=== PATIENT | male | born 1995 | race Caucasian/White ===

== ENCOUNTER 2020-04-15 13:04 | Outpatient (REF) | payer MEDICAID, SELFPAY | END 2020-04-15 13:05 | disposition home or self-care (01) | LOC: HO.LAB 13:04 | PROVIDERS: Visit Provider Internal Medicine | DX: Z20.828 Contact with and (suspected) exposure to other viral communicable diseases (principal) | CPT/HCPCS: C9803; U0003 ==

== ENCOUNTER 2020-07-21 06:50 | Emergency (ER) | payer MEDICAID, SELFPAY ==
--- NOTE | ~2020-07-21 | CT_ITS ---
EXAMINATION: CT ABDOMEN AND PELVIS WITHOUT CONTRAST CLINICAL INFORMATION: Flank pain, hematuria. COMPARISON: 11/17/2015 CT scan of the abdomen and pelvis. TECHNIQUE: Multidetector volumetric imaging was performed from the superior aspect of the liver through the pubic symphysis. Sagittal and coronal reformatted images were obtained on the technologist's workstation. Lack of intravenous and oral contrast limits visceral evaluation. This CT examination was performed using dose optimization techniques as appropriate, variously including the following: *Automated exposure control *Adjustment of mA and/or kV according to patient size (this includes techniques or standardized protocols for targeted exams where dose is matched to indication/reason for exam; i.e. extremities or head) *Use of iterative reconstruction technique DLP: 286.25 mGy-cm FINDINGS: LUNG BASES: The visualized lung bases are unremarkable. LIVER, GALLBLADDER, AND BILIARY TREE: Unremarkable. PANCREAS: Unremarkable. SPLEEN: Unremarkable. ADRENAL GLANDS: Unremarkable. KIDNEYS AND URETERS: The kidneys are normal in size, shape, and attenuation. No hydronephrosis, hydroureter, or calculi seen. No perinephric stranding. BLADDER: Unremarkable. GASTROINTESTINAL TRACT: The small and large bowel are unremarkable. The appendix is unremarkable. The previously seen calcification associated with the appendix is not visualized. ABDOMINAL WALL: No significant hernia is appreciated. LYMPH NODES: Normal. VASCULAR: Unremarkable. PELVIC VISCERA: Unremarkable. OSSEOUS STRUCTURES: Unremarkable. CT/CT abdomen pelvis wo con IMPRESSION: Unremarkable CT scan of the abdomen and pelvis. A causative abnormality for the patient's flank pain/hematuria was not identified.
[2020-07-21 08:20] VITALS: BP 112/75; PULSE 67; RESP 16; TEMP 36.7; O2SAT 99
--- NOTE | 2020-07-21 08:39 | ED_ITS ---
HPI - Abdominal Pain General Chief Complaint: Urogenital-Male Stated Complaint: flank pain/blood in urine Time Seen by Provider: 07/21/20 08:07 Source: patient Mode of arrival: ambulatory Limitations: no limitations History of Present Illness HPI narrative: 25 y/o male with history of prior constipation, bloody BM's and ex-lap as a teenager at [facility] who presents to the ED with 2-3 days of LLQ pain radiating up to his left flank as well as new onset bloody urine today. He denies fever, chills, N/V/D. Had normal BM yesterday. No history of kidney stones. No sick contacts. Not sexually active. No penile discharge, no testicular pain. MD elicited complaint: abdominal pain and flank pain Onset (ago): day(s) (2-3 ) Pain Consistency: constant Location: LLQ Severity: severe Quality: stabbing Radiation: L flank Migration to: L flank Exacerbating factors: movement Relieving factors: nothing Associated symptoms: hematuria Related Data Previous Rx's Medication Instructions Recorded levofloxacin 750 mg PO DAILY 7 Days #7 tab 07/21/20 Allergies Allergy/AdvReac Type Severity Reaction Status Date / Time minocycline [MINOCYCLINE] Allergy Unknown URINATE Verified 07/21/20 08:42 BLOOD Review of Systems Review of Systems Constitutional: No Fever, No Chills ENT/Mouth: No sore throat, No Rhinorrhea, No Swallowing Difficulty Cardiovascular: No Chest Pain, No SOB, No Orthopnea, No Edema Respiratory: No Cough, No Sputum, No Wheezing, No dyspnea Gastrointestinal: No Nausea, No Vomiting, No Diarrhea, + abdominal Pain, No Hematochezia, No Melena Genitourinary: + Dysuria, No Urinary Frequency, + Hematuria Musculoskeletal: No joint pain, No Myalgias Skin: No Skin Lesions, No rash Neuro: No Weakness, No Numbness, No Dizziness, No Headache Psych: No Anxiety/Panic, No Depression Heme/Lymph: No Bruising, No Lymphadenopathy Endocrine: No Polyuria, No Polydipsia Physical Exam Vital Signs: Vital Signs: Last Vital Signs Temp 97.9 F 07/21/20 08:42 Pulse 58 07/21/20 08:42 Resp 16 07/21/20 08:42 BP 111/71 07/21/20 08:42 Pulse Ox 100 07/21/20 08:42 Body Mass Index 17.7 Appearance: Alert. Oriented X3. No acute distress. Eyes: Pupils equal, round and reactive to light. ENT: Pharynx normal. Neck: Normal inspection. Neck supple. CVS: Normal heart rate and rhythm. Pulses normal. Respiratory: No respiratory distress. Breath sounds normal. Abdomen: thin, flat, 3 small well healed surgical scars consistent with prior laporoscopy, tender LLQ, +CVA tenderness on the left.+BS x4 External genitalia are normal in appearance, no scrotal or testicular mass or tenderness. no skin changes. Skin: Skin warm and dry. Normal skin color. Normal skin turgor. No rashes. Extremities: No lower extremity edema. Neuro: Oriented X 3. No motor deficit. No sensory deficit. Course Course Course Narrative: 25 y/o male presenting with LLQ and left flank pain x2-3 days with acute onset of hematuria today. Concern for nephrolithiasis. Also reports dysuria so concern for UTI and pyelonephritis as well however patient is non- toxic, afebrile and not septic appearing at this time. Will get UA, basic labs and dry CT to further assess. Reevaluation(s) Reevaluation #1: CT scan is normal. Lab workup is unremarkable. UA shows ana turia. No clots per patient and he has no trouble voiding. Continues to deny testicular pain and has normal examination of genitalia. Will treat for acute cystitis with Levaquin and have him follow up with Urology. He is stable for discharge. Patient agrees with plan. MDM - Abdominal Pain Lab Data Result diagrams: 07/21/20 09:01 07/21/20 09:01 Labs: Lab Results 07/21/20 07/21/20 07/21/20 Range/Units 09:01 09:01 09:01 WBC 5.0 (4.8-10.8) X10*3/uL RBC 5.01 (4.60-5.80) X10*6/uL Hgb 15.2 (14.0-18.0) g/dl Hct 46.4 (42-52) % MCV 92.6 (80-98) fL MCH 30.3 (27.0-33.0) pg MCHC 32.8 (31.0-36.0) g/dl RDW 12.8 (11.0-16.0) % Plt Count 230 (160-400) X10*3/uL MPV 9.2 L (9.4-12.4) fL Immature Gran % (Auto) 0.2 (0.0-0.4) % Neut % (Auto) 39.6 L (45-73) % Lymph % (Auto) 45.3 H (20-40) % [place] % (Auto) 11.5 H (2-11) % Eos % (Auto) 2.6 (0-4) % Baso % (Auto) 0.8 (0-2) % Lymph # (Auto) 2.3 (1.2-4.9) X10*3/uL [place] # (Auto) 0.6 (0.1-1.2) X10*3/uL Eos # (Auto) 0.1 (0.0-0.4) X10*3/uL Baso # (Auto) 0.0 (0.0-0.2) X10*3/uL Abs Immat Gran (auto) 0.01 (0.00-0.03) X10*3/uL Absolute Neuts (auto) 2.0 (2.0-8.3) X10*3/uL Absolute Nucleated RBC 0.000 (0.0-0.012) X10*3/uL Nucleated RBC % (auto) 0.0 (0.0-0.2) /100WBC Hold Blue Top SEE NOTE Sodium 137 (135-145) mmol/L Potassium 4.8 (3.3-5.1) mmol/L Chloride 104 (96-108) mmol/L Carbon Dioxide 25 (22-29) mmol/L Anion Gap 13 (12-20) BUN 7 L (9-16) mg/dL Creatinine 0.79 (0.5-1.4) mg/dL Estim Creat Clear Calc 111.0 Estimated GFR > 60 Random Glucose 84 (60-115) mg/dL Calcium 8.7 (8.4-10.2) mg/dL Total Bilirubin 0.9 (0.0-1.0) mg/dL Direct Bilirubin 0.3 (0.0-0.5) mg/dL AST 27 (5-37) U/L ALT 23 (0-40) U/L Alkaline Phosphatase 69 (39-117) U/L Total Protein 6.8 (6.5-8.0) g/dL Albumin 4.4 (3.5-5.0) g/dL Lipase 32 (8-78) U/L Urine Color Urine Appearance Urine pH (5.0-8.0) Ur Specific [place] (1.005-1.025) Urine Protein (NEG-TRACE) MG/DL Urine Glucose (UA) (NEG) MG/DL Urine Ketones (NEG) MG/DL Urine Blood (NEG) Urine Nitrite (NEG) Ur Leukocyte Esterase (NEG) Urine RBC (0) /HPF Urine WBC (0-4) /HPF Ur Squamous Epith Cells /LPF Urine Bacteria /LPF 07/21/20 Range/Units 09:29 WBC (4.8-10.8) X10*3/uL RBC (4.60-5.80) X10*6/uL Hgb (14.0-18.0) g/dl Hct (42-52) % MCV (80-98) fL MCH (27.0-33.0) pg MCHC (31.0-36.0) g/dl RDW (11.0-16.0) % Plt Count (160-400) X10*3/uL MPV (9.4-12.4) fL Immature Gran % (Auto) (0.0-0.4) % Neut % (Auto) (45-73) % Lymph % (Auto) (20-40) % [place] % (Auto) (2-11) % Eos % (Auto) (0-4) % Baso % (Auto) (0-2) % Lymph # (Auto) (1.2-4.9) X10*3/uL [place] # (Auto) (0.1-1.2) X10*3/uL Eos # (Auto) (0.0-0.4) X10*3/uL Baso # (Auto) (0.0-0.2) X10*3/uL Abs Immat Gran (auto) (0.00-0.03) X10*3/uL Absolute Neuts (auto) (2.0-8.3) X10*3/uL Absolute Nucleated RBC (0.0-0.012) X10*3/uL Nucleated RBC % (auto) (0.0-0.2) /100WBC Hold Blue Top Sodium (135-145) mmol/L Potassium (3.3-5.1) mmol/L Chloride (96-108) mmol/L Carbon Dioxide (22-29) mmol/L Anion Gap (12-20) BUN (9-16) mg/dL Creatinine (0.5-1.4) mg/dL Estim Creat Clear Calc Estimated GFR Random Glucose (60-115) mg/dL Calcium (8.4-10.2) mg/dL Total Bilirubin (0.0-1.0) mg/dL Direct Bilirubin (0.0-0.5) mg/dL AST (5-37) U/L ALT (0-40) U/L Alkaline Phosphatase (39-117) U/L Total Protein (6.5-8.0) g/dL Albumin (3.5-5.0) g/dL Lipase (8-78) U/L Urine Color PINK Urine Appearance CLOUDY Urine pH 6.0 (5.0-8.0) Ur Specific [place] 1.020 (1.005-1.025) Urine Protein 1+ H (NEG-TRACE) MG/DL Urine Glucose (UA) NEG (NEG) MG/DL Urine Ketones NEG (NEG) MG/DL Urine Blood 3+ H (NEG) Urine Nitrite NEG (NEG) Ur Leukocyte Esterase NEG (NEG) Urine RBC TNTC H (0) /HPF Urine WBC 1-4 (0-4) /HPF Ur Squamous Epith Cells TRACE /LPF Urine Bacteria NONE /LPF Discharge Plan Discharge Clinical Impression: Cystitis Patient Disposition: Home, Self-Care Instructions: Hematuria (ED), Interstitial Cystitis (ED) Additional Instructions: Your CT scan was normal. Your blood work today was unremarkable. Take the prescribed antibiotic as directed. Drink plenty of water and stay hydrated. Follow up with the Urology doctor. If you have worsening pain or any new concerning symptoms come back to the ER fo r further evaluation. Prescriptions: New levofloxacin 750 mg tablet 750 mg PO DAILY 7 Days Qty: 7 RF: 0 Referrals: Oneil Menezes MD [Physician] - 2 days (hematuria) Stand Alone Forms: Work/School Release [facility] Past Medical History Attestation statement: The following information was validated with the patient. Medical History Conductive hearing loss Social History Social History Advance Directives: No Advance Directives Information Provided: Yes
[2020-07-21 08:42] VITALS: BP 111/71; PULSE 58; RESP 16; TEMP 36.6; O2SAT 100; BMI 17.7
[2020-07-21 09:05] LABS: MANUAL DIFF FLAG NO
[2020-07-21 09:11] LABS: Basophils Percent Auto 0.8 % (0-2); Eosinophils Absolute Auto 0.1 X10*3/uL (0.0-0.4); Eosinophils Percent Auto 2.6 % (0-4); Hematocrit 46.4 % (42-52); Hemoglobin 15.2 g/dl (14.0-18.0); Imm Gran Abs Auto 0.01 X10*3/uL (0.00-0.03); Imm Gran Pct Auto 0.2 % (0.0-0.4); Lymphocytes Absolute Auto 2.3 X10*3/uL (1.2-4.9); Lymphocytes Percent Auto 45.3 % (20-40); Mean Corpuscular HGB Conc 32.8 g/dl (31.0-36.0); Mean Corpuscular Hemoglobin 30.3 pg (27.0-33.0); Mean Corpuscular Volume 92.6 fL (80-98); Mean Platelet Volume 9.2 fL (9.4-12.4); Monocytes Absolute Auto 0.6 X10*3/uL (0.1-1.2); Monocytes Percent Auto 11.5 % (2-11); Neutrophils Percent Auto 39.6 % (45-73); Platelet Count 230 X10*3/uL (160-400); Red Blood Count 5.01 X10*6/uL (4.60-5.80); Red Cell Distribution Width 12.8 % (11.0-16.0)
[2020-07-21] MEDS: Ketorolac Tromethamine 30 MG/ML VIAL IVPUSH (09:18)
[2020-07-21] MEDS: 0.9 % Sodium Chloride 1,000 ML 999 ML IVCONT (09:29)
[2020-07-21 09:40] LABS: Alanine Aminotransferase 23 U/L (0-40); Albumin Level 4.4 g/dL (3.5-5.0); Alkaline Phosphatase 69 U/L (39-117); Anion Gap 13 (12-20); Aspartate Amino Transferase 27 U/L (5-37); Bilirubin Direct 0.3 mg/dL (0.0-0.5); Bilirubin Total 0.9 mg/dL (0.0-1.0); Blood Urea Nitrogen 7 mg/dL (9-16); Calcium 8.7 mg/dL (8.4-10.2); Carbon Dioxide 25 mmol/L (22-29); Chloride 104 mmol/L (96-108); Estimated Glomerular Filt Rate > 60; Glucose Random 84 mg/dL (60-115); Lipase 32 U/L (8-78); Potassium 4.8 mmol/L (3.3-5.1); Sodium 137 mmol/L (135-145); Total Protein 6.8 g/dL (6.5-8.0)
[2020-07-21 09:42] LABS: Glucose Urine UA NEG (NEG); Leukocyte Esterase Urine NEG (NEG); Nitrite Urine NEG (NEG); Urine Blood 3+ (NEG); Urine Ketones NEG (NEG); Urine Protein 1+ MG/DL (NEG-TRACE)
[2020-07-21 09:43] LABS: Appearance Urine CLOUDY; Color Urine PINK
[2020-07-21 09:52] LABS: RBC Urine TNTC /HPF (0); Squamous Epithelial Cell Urine TRACE /LPF
== END 2020-07-21 10:45 | disposition home or self-care (01) ==
PROVIDERS: Emergency Provider Emergency Medicine
DX: N30.11 Interstitial cystitis (chronic) with hematuria (principal)
CPT/HCPCS: 36415; 74176; 80048; 80076; 81001; 83690; 85025; 96361; 96374; 99283; 99284; J1885

== ENCOUNTER 2021-02-07 10:06 | Outpatient (REF) | payer MEDICAID, SELFPAY | END 2021-02-07 10:07 | disposition home or self-care (01) | LOC: HO.LAB 10:06 | PROVIDERS: Visit Provider Internal Medicine | DX: Z20.822 Contact with and (suspected) exposure to COVID-19 (principal) | CPT/HCPCS: C9803; U0003; U0005 ==

== ENCOUNTER 2021-04-06 21:21 | Emergency (ER) | payer MEDICAID, SELFPAY ==
[2021-04-06 21:31] VITALS: BP 163/92; PULSE 102; RESP 16; TEMP 36.9; O2SAT 100; BMI 18.4
== END 2021-04-06 22:13 | disposition left against medical advice (07) ==
PROVIDERS: Emergency Provider Emergency Medicine
DX: R07.9 Chest pain, unspecified (principal); R10.30 Lower abdominal pain, unspecified
CPT/HCPCS: 99281; 99282

== ENCOUNTER → 2021-08-07 20:36 | Outpatient (REF) | payer MEDICAID, SELFPAY | LOC: HO.SL 20:36 | PROVIDERS: PCP Registered Nurse Community Health; Visit Provider Registered Nurse Community Health | DX: G47.52 REM sleep behavior disorder (principal) | CPT/HCPCS: 95810 ==

== ENCOUNTER 2021-09-04 23:13 | Inpatient (IN) | payer MEDICAID, OTHER, SELFPAY ==
--- NOTE | ~2021-09-04 | CT_ITS ---
EXAMINATION: CT BRAIN AND CT CERVICAL SPINE WITHOUT CONTRAST. CLINICAL INFORMATION: Altered mental status. Fall. COMPARISON: None TECHNIQUE: 5 mm thin axial and reformatted 2 mm thin sagittal and coronal images of brain were obtained. Subsequently axial 3 mm thin and reformatted 2 mm thin images of cervical spine were obtained. DLP 919. FINDINGS: Brain: There is no acute intra-axial, extra-axial bleed, masses or midline shift. There is no acute infarction evolution. There is no edema. The lateral ventricles are symmetrical in size and configuration without enlargement. The cortical sulci are normal. No abnormality seen in the posterior fossa. Bone windows reveal no calvarial abnormality. There is no scalp soft tissue swelling. Bilateral paranasal sinuses and mastoid air cells are well-aerated. There is a small polyp or retention cyst left maxillary sinus. Cervical spine: On sagittal reconstructed images there is normal cervical lordosis. The vertebral heights, alignment and disc heights are normal. The craniovertebral junction and the C1-C2 alignment is normal. No visible acute fracture, dislocation or subluxation seen. The prevertebral and the paravertebral soft tissues are normal. The thyroid lobes, submandibular and parotid glands are symmetrical and normal. Bilateral TM joints are symmetrical and normal. The mandible Is intact. The lung apices are clear. The trachea, nasopharyngeal and laryngeal airway is widely patent. CT/CT cervical spine wo con IMPRESSION: No acute intracranial process seen. There is no acute fracture or dislocation in cervical spine.
--- NOTE | ~2021-09-04 | CT_ITS ---
EXAMINATION: CT BRAIN AND CT CERVICAL SPINE WITHOUT CONTRAST. CLINICAL INFORMATION: Altered mental status. Fall. COMPARISON: None TECHNIQUE: 5 mm thin axial and reformatted 2 mm thin sagittal and coronal images of brain were obtained. Subsequently axial 3 mm thin and reformatted 2 mm thin images of cervical spine were obtained. DLP 919. FINDINGS: Brain: There is no acute intra-axial, extra-axial bleed, masses or midline shift. There is no acute infarction evolution. There is no edema. The lateral ventricles are symmetrical in size and configuration without enlargement. The cortical sulci are normal. No abnormality seen in the posterior fossa. Bone windows reveal no calvarial abnormality. There is no scalp soft tissue swelling. Bilateral paranasal sinuses and mastoid air cells are well-aerated. There is a small polyp or retention cyst left maxillary sinus. Cervical spine: On sagittal reconstructed images there is normal cervical lordosis. The vertebral heights, alignment and disc heights are normal. The craniovertebral junction and the C1-C2 alignment is normal. No visible acute fracture, dislocation or subluxation seen. The prevertebral and the paravertebral soft tissues are normal. The thyroid lobes, submandibular and parotid glands are symmetrical and normal. Bilateral TM joints are symmetrical and normal. The mandible Is intact. The lung apices are clear. The trachea, nasopharyngeal and laryngeal airway is widely patent. CT/CT head/brain wo con IMPRESSION: No acute intracranial process seen. There is no acute fracture or dislocation in cervical spine.
--- NOTE | ~2021-09-04 | XR_ITS ---
EXAMINATION: XR CHEST CLINICAL INFORMATION: Altered mental status COMPARISON: 07/20/2017 TECHNIQUE: Frontal view of the chest was obtained. FINDINGS: Lung volumes are symmetric. No focal consolidation is seen. No evidence of pneumothorax, pleural effusion, or pulmonary edema. The cardiomediastinal contour is unremarkable. No acute osseous findings are seen. XR/XR chest 1V IMPRESSION: No acute cardiopulmonary findings.
[2021-09-04 23:18] VITALS: BP 104/67; BP 106/67; PULSE 62; PULSE 65; RESP 9; O2SAT 100; O2SAT 99; BMI 16.0
--- NOTE | 2021-09-04 23:25 | PC.NURSE ---
PATIENT CAME IN ,TEMP WAS 94.0 ,MD AWARE ,PATIENT WAS HOOKED UP TO BEAR HUGER MACHINE TO INCREASE TEMP .
--- NOTE | 2021-09-04 23:30 | ECG_ITS ---
Test Reason : OVERDOSED Blood Pressure : / mmHG Vent. Rate : 087 BPM Atrial Rate : 087 BPM P-R Int : 146 ms QRS Dur : 084 ms QT Int : 350 ms P-R-T Axes : 082 112 065 degrees QTc Int : 421 ms Normal sinus rhythm Right atrial enlargement Right axis deviation Pulmonary disease pattern Right ventricular hypertrophy Abnormal ECG No previous ECGs available Referred By: Generic ED Physician Electronically Signed By:NAVDEEP TOBAR MD
[2021-09-04 23:55] LABS: Appearance Urine CLEAR; Color Urine YELLOW; Glucose Urine UA NEG (NEG); Leukocyte Esterase Urine NEG (NEG); Nitrite Urine NEG (NEG); Specific Gravity - Urine 1.025 (1.005-1.025); Urine Blood NEG (NEG); Urine Ketones NEG (NEG); Urine Protein NEG (NEG-TRACE)
[2021-09-04] MEDS: Naloxone HCl 2 MG/2 ML SYRINGE 4 MG IVPUSH (23:58)
[2021-09-05] VITALS (29 sets, daily range): BP systolic 102–145; BP diastolic 66–90; PULSE 70–94; RESP 11–17; TEMP 34.9–37.9; O2SAT 94–100
[2021-09-05 00:10] LABS: MANUAL DIFF FLAG NO
[2021-09-05 00:11] LABS: Basophils Percent Auto 0.5 % (0-2); Eosinophils Percent Auto 0.9 % (0-4); Hematocrit 47.4 % (42.0-52.0); Hemoglobin 15.2 g/dl (14.0-18.0); Imm Gran Abs Auto 0.02 X10*3/uL (0.00-0.03); Imm Gran Pct Auto 0.5 % (0.0-0.4); Lymphocytes Absolute Auto 1.3 X10*3/uL (1.2-4.9); Lymphocytes Percent Auto 30.3 % (20-40); Mean Corpuscular HGB Conc 32.1 g/dl (31.0-36.0); Mean Corpuscular Hemoglobin 29.5 pg (27.0-33.0); Mean Corpuscular Volume 91.9 fL (80.0-98.0); Mean Platelet Volume 9.2 fL (9.4-12.4); Monocytes Absolute Auto 0.4 X10*3/uL (0.1-1.2); Monocytes Percent Auto 10.3 % (2-11); Neutrophils Absolute Auto 2.5 x10*3/uL (2.0-8.3); Neutrophils Percent Auto 57.5 % (45-73); Platelet Count 231 X10*3/uL (160-400); Red Blood Count 5.16 X10*6/uL (4.60-5.80); Red Cell Distribution Width 13.5 % (11.0-16.0); White Blood Count 4.3 X10*3/uL (4.8-10.8)
[2021-09-05] MEDS: 0.9 % Sodium Chloride 1,000 ML 999 ML IV (00:12)
[2021-09-05 00:16] LABS: Glucose, Whole Blood 114 mg/dL (60-115)
[2021-09-05 00:18] LABS: Amphetamine Screen Urine Not Detected (Not Detect); Barbiturates, Urine Not Detected (Not Detect); Benzodiazepines Screen Urine Not Detected (Not Detect); Cannabinoid Screen Urine POSITIVE (Not Detect); Cocaine Screen Urine POSITIVE (Not Detect); Fentanyl, urine Not Detected (Not Detect); Opiate Screen Urine Not Detected (Not Detect); Phencyclidine Screen Urine Not Detected (Not Detect)
[2021-09-05 00:23] LABS: Lactic Acid 1.1 mmol/L (0.5-2.0)
[2021-09-05 00:26] LABS: Ethanol < 10 mg/dL
[2021-09-05 00:30] LABS: Alanine Aminotransferase 14 U/L (0-40); Albumin Level 4.2 g/dL (3.5-5.0); Alkaline Phosphatase 78 U/L (39-117); Anion Gap 14 (12-20); Aspartate Amino Transferase 16 U/L (5-37); Bilirubin Total 1.3 mg/dL (0.0-1.0); Blood Urea Nitrogen 7 mg/dL (9-16); Calcium 9.4 mg/dL (8.4-10.2); Carbon Dioxide 24 mmol/L (22-29); Chloride 106 mmol/L (96-108); Creatinine Clr Calc Pharmacy 90.2; Estimated Glomerular Filt Rate > 60; Glucose Random 119 mg/dL (60-115); Lipase 18 U/L (8-78); Potassium 4.7 mmol/L (3.3-5.1); Sodium 139 mmol/L (135-145); Total Protein 6.7 g/dL (6.5-8.0)
[2021-09-05 00:48] LABS: TSH reflex Free T4 0.35 uIU/mL (0.32-4.0)
[2021-09-05 00:56] LABS: Influenza A PCR NEGATIVE (Negative); Influenza B PCR NEGATIVE (Negative); Resp Syncy Virus RNA Qual PCR NEGATIVE (Negative); SARS COV2 PCR INHOUSE NEGATIVE (Negative)
[2021-09-05 01:19] LABS: Acetaminophen LAB < 1 mcg/mL (<30); Salicylate < 5.0 mg/dL (15-30)
[2021-09-05 01:25] LABS: Troponin-I High Sensitivity < 3.5 ng/L (<3.5-35.0)
--- NOTE | 2021-09-05 01:51 | PC.NURSE ---
Patient maldonado was placed 09/05/2021 @ 0150. Patient tolerated procedure. Urine is flowing out
--- NOTE | 2021-09-05 04:42 | PC.NURSE ---
pt overdose on gabapentin, core temp was 94.0, bear hugger in placed. Core temp back to normal at 98.8. poison control called, repeat [facility] per request . Labs taken, maldonado placed, pt on bedside monitor. Mother has spoken to provider in regards to pt being depressed. Will continue to monitor.
--- NOTE | 2021-09-05 07:25 | ED_ITS ---
HPI - Overdose General Chief Complaint: Overdose <Raffy Mera MD - Last Filed: 09/05/21 08:08> Stated Complaint: OD <Raffy Mera MD - Last Filed: 09/05/21 08:08> Time Seen by Provider: 09/04/21 23:19 <Raffy Mera MD - Last Filed: 09/05/21 08:08> Source: family (Mother, Samina) <Raffy Mera MD - Last Filed: 09/05/21 08:08> Mode of arrival: EMS <Raffy Mera MD - Last Filed: 09/05/21 08:08> Limitations: altered mental status (Secondary to overdose) <Raffy Mera MD - Last Filed: 09/05/21 08:08> History of Present Illness HPI Narrative: 26-year-old male brought to emergency department by ambulance for evaluation a suspected gabapentin overdose. The information came from the patient's mother, Samina who I spoke to on the phone. The patient's mother states that the patient has been depressed for several months and has not been coming out of his room. The mother states that she was diagnosed with metastatic pancreatic cancer several months ago and she relates that this is the trigger for the patient's depression. She states that she last saw him at about 18:00. She went back and did check on him prior to going to bed and she found him lying on his bedroom floor. The patient had his mother's bottle of steve pentin in the room with him. The mother states that she just filled the prescription for gabapentin 100 mg tablets 90 pills . She counted the remaining pills and there were 22 left and she believes that the patient took 68 pills. The patient also takes Trileptal and melatonin but the mother does not think that the patient took these medications. The patient was unresponsive and unarousable so the mother called 911. According to the paramedics, the patient had Advil respirations. He was given 8 mg of intranasal Narcan and an additional 2 mg of IV Narcan with increase in his respiratory rate to 14. The patient however was still very somnolent and not arousable. <Raffy Mera MD - Last Filed: 09/05/21 08:08> Related Data Home Medications: Previous Rx's Medication Instructions Recorded levofloxacin 750 mg tablet 750 mg PO DAILY 7 Days #7 tab 07/21/20 <Raffy Mera MD - Last Filed: 09/05/21 08:08> Allergies/Adverse Reactions: Allergies Allergy/AdvReac Type Severity Reaction Status Date / Time minocycline [MINOCYCLINE] Allergy Unknown URINATE Verified 07/21/20 08:42 BLOOD <Raffy Mera MD - Last Filed: 09/05/21 08:08> Review of Systems Review of Systems: Yes Unobtainable due to mental status (Altered mental status secondary to overdose) <Raffy Mera MD - Last Filed: 09/05/21 08:08> [facility] [place] Past Medical History [facility] Narrative: Past medical history: Depression, anxiety, 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 Past surgical history: None. Social history: Patient does smoke cigarettes. He does not drink alcohol. His mother states that he smokes marijuana and uses cocaine. <Raffy Mera MD - Last Filed: 09/05/21 08:08> Medical History: Medical History Conductive hearing loss <Raffy Mera MD - Last Filed: 09/05/21 08:08> Social History Social History: Social History Advance Directives: No <Raffy Mera MD - Last Filed: 09/05/21 08:08> Physical Exam Vital Signs: Vital Signs: Last Vital Signs Temp 99.1 F 09/06/21 04:55 Pulse 81 09/06/21 04:55 Resp 19 09/06/21 04:55 BP 110/64 09/06/21 04:55 Pulse Ox 100 09/06/21 04:55 BMI result Body Mass Index 16.0 <Raffy Mera MD - Last Filed: 09/05/21 08:08> Vital Signs: Last Vital Signs Temp 99.1 F 09/06/21 04:55 Pulse 81 09/06/21 04:55 Resp 19 09/06/21 04:55 BP 110/64 09/06/21 04:55 Pulse Ox 100 09/06/21 04:55 BMI result Body Mass Index 16.0 <Mary Healy NP - Last Filed: 09/06/21 08:21> Const: Other: Deeply somnolent male patient, minimally responsive to verbal stimuli, he is breathing spontaneously, his O2 saturation and end-tidal CO2 were normal. <Raffy Mera MD - Last Filed: 09/05/21 08:08> HEENT: Head: Yes normal to inspection, Yes normocephalic and Yes atraumatic <Raffy Mera MD - Last Filed: 09/05/21 08:08> Ears: external ears normal <MD Bre Reeves Last Filed: 09/05/21 08:08> General nose exam: Normal external nose present <MD Bre Reeves Last Filed: 09/05/21 08:08> Face and sinus: Yes normal facial exam <MD Bre Reeves Last Filed: 09/05/21 08:08> Mouth: Normal oral and palatal mucosa present <MD Bre Reeves Last Filed: 09/05/21 08:08> Throat: Yes posterior oropharynx normal <MD Bre Reeves Last Filed: 09/05/21 08:08> Eyes: Other: Patient's pupils are 3 mm and minimally responsive to light, sclera conjunctiva were normal, periorbital structures are normal with no ecchymosis or swelling. <Raffy Mera MD - Last Filed: 09/05/21 08:08> Neck: Neck: Yes normal visual inspection, Yes no lymphadenopathy, Yes trachea midline and Yes supple <MD Bre Reeves Last Filed: 09/05/21 08:08> Chest: Chest palpation & inspection: normal inspection of the chest and normal palpation of entire chest wall <MD Bre Reeves Last Filed: 09/05/21 08:08> Resp: Effort & Inspection: normal respiratory effort and able to speak in complete sentences <MD Bre Reeves Last Filed: 09/05/21 08:08> Auscultation: clear to auscultation bilaterally <MD Bre Reeves Last Filed: 09/05/21 08:08> Cardio: Rate: regular rate <MD Bre Reeves Last Filed: 09/05/21 08:08> Rhythm: regular rhythm <MD Bre Reeves Last Filed: 09/05/21 08:08> Heart sounds: S1 normal heart sound present, S2 normal heart sound present and no murmurs <MD Bre Reeves Last Filed: 09/05/21 08:08> GI: Inspection: Yes normal to inspection <MD Bre Reeves Last Filed: 09/05/21 08:08> Palpation (GI): Soft to palpation, nontender and no guarding <MD Bre Reeves Last Filed: 09/05/21 08:08> Auscultation: normal bowel sounds <MD Bre Reeves Last Filed: 08:08> : General: Yes no CVA tenderness <MD Bre Reeves Last Filed: 09/05/21 08:08> Back/Spine/Pelvis: Back: no CVA tenderness <MD Bre Reeves Last Filed: 09/05/21 08:08> Skin: General skin exam: no rashes or lesions noted <MD Bre Reeves Last Filed: 09/05/21 08:08> Neuro: Other: Patient is deeply somnolent but does withdraw to painful stimuli <MD Bre Reeves Last Filed: 09/05/21 08:08> Extrem: Other: Normal inspection, no trauma, no edema <MD Bre Reeves Last Filed: 09/05/21 08:08> Course Course Course Narrative: 26-year-old male with a history of depression and anxiety who according to his mother has been socially isolating himself in his room for several months ever since the mother was diagnosed with metastatic pancreatic cancer. The mother last saw the patient around 18:00 and then when she was going to bed she checked in on him and found him lying on the floor of his bedroom. He was unresponsive. The patient had his mother's bottle of gabapentin 100 mg pills and based on the bottle count the patient may have taken 68 pills (6.8 g). The patient was given a large dose of Narcan pre-hospital with possibly some improvement of his respiratory status but not his level of consciousness. I did give him Narcan 4 mg IV here in the emergency department any had no response. I did discuss the patient's presentation with poison Control. They stated that a 6.8 g overdose was low and that a [id number] overdose would be considered 35 g or higher. They recommended supportive care and watching for [employer] depression. Therefore the patient be placed in physician observation for monitoring. 2345: Physician observation started at 08/20/2044. Patient placed in physician observation because the patient needs cardiac, pulse ox, end-tidal CO2 monitoring until the sufficiently metabolize is the gabapentin overdose so he can be evaluated by our crisis team. At the time of physician observation starting, the patient is deeply somnolent but arousable to painful stimuli, he is hypothermic with a rectal temperature of 94.8 degrees. Lungs clear, heart regular rate rhythm, abdomen nondistended, extremities were unremarkable. 0135: Physician observation continued: evaluation: Low WBC 4300, elevated glucose 119, elevated total bilirubin 1.3, normal TSH. Urinalysis negative. U tox positive for cocaine and marijuana. ETOH below detectable limits. Salicylate and acetaminophen below detectable limits. 0 800: Physician observation continued: The patient is more awake, he is opening his eyes spontaneously and he is making noises. The patient has had no episodes of hypoxia or apnea during his observation. I did place the patient on a Section 12. At the end of my shift, patient's care was turned over to my colleague, Dr. Morgan. <Raffy Mera MD - Last Filed: 09/05/21 08:08> Reevaluation(s) Reevaluation #1: 09/06 0820-patient is currently pending a crisis evaluation. No complaints of nursing overnight. Vital signs reviewed and stable. Will continue plan of care pending disposition <Mary Healy NP - Last Filed: 09/06/21 08:21> MDM - Overdose Lab Data Result diagrams: : 09/05/21 00:05 09/05/21 00:05 <Raffy Mera MD - Last Filed: 09/05/21 08:08> Labs: Lab Results 09/04/21 09/04/21 09/04/21 Range/Units 23:31 23:47 23:47 WBC (4.8-10.8) X10*3/uL RBC (4.60-5.80) X10*6/uL Hgb (14.0-18.0) g/dl Hct (42.0-52.0) % MCV (80.0-98.0) fL MCH (27.0-33.0) pg MCHC (31.0-36.0) g/dl RDW (11.0-16.0) % Plt Count (160-400) X10*3/uL MPV (9.4-12.4) fL Immature Gran % (Auto) (0.0-0.4) % Neut % (Auto) (45-73) % Lymph % (Auto) (20-40) % Vilas % (Auto) (2-11) % Eos % (Auto) (0-4) % Baso % (Auto) (0-2) % Lymph # (Auto) (1.2-4.9) X10*3/uL Vilas # (Auto) (0.1-1.2) X10*3/uL Eos # (Auto) (0.0-0.4) X10*3/uL Baso # (Auto) (0.0-0.2) X10*3/uL Abs Immat Gran (auto) (0.00-0.03) X10*3/uL Absolute Neuts (auto) (2.0-8.3) x10*3/uL Absolute Nucleated RBC (0.0-0.012) X10*3/uL Nucleated RBC % (auto) (0.0-0.2) /100WBC Sodium (135-145) mmol/L Potassium (3.3-5.1) mmol/L Chloride (96-108) mmol/L Carbon Dioxide (22-29) mmol/L Anion Gap (12-20) BUN (9-16) mg/dL Creatinine (0.5-1.4) mg/dL Estim Creat Clear Calc Estimated GFR POC Glucose 114 (60-115) mg/dL Random Glucose (60-115) mg/dL Lactic Acid (0.5-2.0) mmol/L Calcium (8.4-10.2) mg/dL Phosphorus (2.7-4.5) mg/dL Magnesium (1.6-2.6) mg/dL Total Bilirubin (0.0-1.0) mg/dL AST (5-37) U/L ALT (0-40) U/L Alkaline Phosphatase (39-117) U/L Total Creatine Kinase (38-174) U/L Troponin I High Sens (<3.5-35.0) ng/L Total Protein (6.5-8.0) g/dL Albumin (3.5-5.0) g/dL Lipase (8-78) U/L TSH (0.32-4.0) uIU/mL Urine Color YELLOW Urine Appearance CLEAR Urine pH 6.0 (5.0-8.0) Ur Specific Allison 1.025 (1.005-1.025) Urine Protein NEG (NEG-TRACE) MG/DL Urine Glucose (UA) NEG (NEG) MG/DL Urine Ketones NEG (NEG) MG/DL Urine Blood NEG (NEG) Urine Nitrite NEG (NEG) Ur Leukocyte Esterase NEG (NEG) Salicylates (15-30) mg/dL Urine Opiates Screen Not Detected (Not Detect) Urine Fentanyl Screen Not Detected (Not Detect) Acetaminophen (<30) mcg/mL Ur Barbiturates Screen Not Detected (Not Detect) Ur Phencyclidine Scrn Not Detected (Not Detect) Ur Amphetamines Screen Not Detected (Not Detect) U Benzodiazepines Scrn Not Detected (Not Detect) Urine Cocaine Screen POSITIVE H (Not Detect) U Marijuana (THC) Screen POSITIVE H (Not Detect) Ethyl Alcohol mg/dL Influenza Type A (PCR) (Negative) Influenza Type B (PCR) (Negative) RSV RNA Qual (PCR) (Negative) SARS-CoV-2 RNA (RT-PCR) (Negative) 09/05/21 09/05/21 09/05/21 Range/Units 00:05 00:05 00:05 WBC 4.3 L (4.8-10.8) X10*3/uL RBC 5.16 (4.60-5.80) X10*6/uL Hgb 15.2 (14.0-18.0) g/dl Hct 47.4 (42.0-52.0) % MCV 91.9 (80.0-98.0) fL MCH 29.5 (27.0-33.0) pg MCHC 32.1 (31.0-36.0) g/dl RDW 13.5 (11.0-16.0) % Plt Count 231 (160-400) X10*3/uL MPV 9.2 L (9.4-12.4) fL Immature Gran % (Auto) 0.5 H (0.0-0.4) % Neut % (Auto) 57.5 (45-73) % Lymph % (Auto) 30.3 (20-40) % Vilas % (Auto) 10.3 (2-11) % Eos % (Auto) 0.9 (0-4) % Baso % (Auto) 0.5 (0-2) % Lymph # (Auto) 1.3 (1.2-4.9) X10*3/uL Vilas # (Auto) 0.4 (0.1-1.2) X10*3/uL Eos # (Auto) 0.0 (0.0-0.4) X10*3/uL Baso # (Auto) 0.0 (0.0-0.2) X10*3/uL Abs Immat Gran (auto) 0.02 (0.00-0.03) X10*3/uL Absolute Neuts (auto) 2.5 (2.0-8.3) x10*3/uL Absolute Nucleated RBC 0.000 (0.0-0.012) X10*3/uL Nucleated RBC % (auto) 0.0 (0.0-0.2) /100WBC Sodium 139 (135-145) mmol/L Potassium 4.7 (3.3-5.1) mmol/L Chloride 106 (96-108) mmol/L Carbon Dioxide 24 (22-29) mmol/L Anion Gap 14 (12-20) BUN 7 L (9-16) mg/dL Creatinine 0.95 (0.5-1.4) mg/dL Estim Creat Clear Calc 90.2 Estimated GFR > 60 POC Glucose (60-115) mg/dL Random Glucose 119 H D (60-115) mg/dL Lactic Acid 1.1 (0.5-2.0) mmol/L Calcium 9.4 D (8.4-10.2) mg/dL Phosphorus 4.2 (2.7-4.5) mg/dL Magnesium 2.4 (1.6-2.6) mg/dL Total Bilirubin 1.3 H (0.0-1.0) mg/dL AST 16 D (5-37) U/L ALT 14 (0-40) U/L Alkaline Phosphatase 78 (39-117) U/L Total Creatine Kinase 70 (38-174) U/L Troponin I High Sens (<3.5-35.0) ng/L Total Protein 6.7 (6.5-8.0) g/dL Albumin 4.2 (3.5-5.0) g/dL Lipase 18 (8-78) U/L TSH (0.32-4.0) uIU/mL Urine Color Urine Appearance Urine pH (5.0-8.0) Ur Specific Allison (1.005-1.025) Urine Protein (NEG-TRACE) MG/DL Urine Glucose (UA) (NEG) MG/DL Urine Ketones (NEG) MG/DL Urine Blood (NEG) Urine Nitrite (NEG) Ur Leukocyte Esterase (NEG) Salicylates < 5.0 L (15-30) mg/dL Urine Opiates Screen (Not Detect) Urine Fentanyl Screen (Not Detect) Acetaminophen < 1 (<30) mcg/mL Ur Barbiturates Screen (Not Detect) Ur Phencyclidine Scrn (Not Detect) Ur Amphetamines Screen (Not Detect) U Benzodiazepines Scrn (Not Detect) Urine Cocaine Screen (Not Detect) U Marijuana (THC) Screen (Not Detect) Ethyl Alcohol mg/dL Influenza Type A (PCR) (Negative) Influenza Type B (PCR) (Negative) RSV RNA Qual (PCR) (Negative) SARS-CoV-2 RNA (RT-PCR) (Negative) 09/05/21 09/05/21 09/05/21 Range/Units 00:05 00:05 00:05 WBC (4.8-10.8) X10*3/uL RBC (4.60-5.80) X10*6/uL Hgb (14.0-18.0) g/dl Hct (42.0-52.0) % MCV (80.0-98.0) fL MCH (27.0-33.0) pg MCHC (31.0-36.0) g/dl RDW (11.0-16.0) % Plt Count (160-400) X10*3/uL MPV (9.4-12.4) fL Immature Gran % (Auto) (0.0-0.4) % Neut % (Auto) (45-73) % Lymph % (Auto) (20-40) % Vilas % (Auto) (2-11) % Eos % (Auto) (0-4) % Baso % (Auto) (0-2) % Lymph # (Auto) (1.2-4.9) X10*3/uL Vilas # (Auto) (0.1-1.2) X10*3/uL Eos # (Auto) (0.0-0.4) X10*3/uL Baso # (Auto) (0.0-0.2) X10*3/uL Abs Immat Gran (auto) (0.00-0.03) X10*3/uL Absolute Neuts (auto) (2.0-8.3) x10*3/uL Absolute Nucleated RBC (0.0-0.012) X10*3/uL Nucleated RBC % (auto) (0.0-0.2) /100WBC Sodium (135-145) mmol/L Potassium (3.3-5.1) mmol/L Chloride (96-108) mmol/L Carbon Dioxide (22-29) mmol/L Anion Gap (12-20) BUN (9-16) mg/dL Creatinine (0.5-1.4) mg/dL Estim Creat Clear Calc Estimated GFR POC Glucose (60-115) mg/dL Random Glucose (60-115) mg/dL Lactic Acid (0.5-2.0) mmol/L Calcium (8.4-10.2) mg/dL Phosphorus (2.7-4.5) mg/dL Magnesium (1.6-2.6) mg/dL Total Bilirubin (0.0-1.0) mg/dL AST (5-37) U/L ALT (0-40) U/L Alkaline Phosphatase (39-117) U/L Total Creatine Kinase (38-174) U/L Troponin I High Sens < 3.5 (<3.5-35.0) ng/L Total Protein (6.5-8.0) g/dL Albumin (3.5-5.0) g/dL Lipase (8-78) U/L TSH 0.35 (0.32-4.0) uIU/mL Urine Color Urine Appearance Urine pH (5.0-8.0) Ur Specific Allison (1.005-1.025) Urine Protein (NEG-TRACE) MG/DL Urine Glucose (UA) (NEG) MG/DL Urine Ketones (NEG) MG/DL Urine Blood (NEG) Urine Nitrite (NEG) Ur Leukocyte Esterase (NEG) Salicylates (15-30) mg/dL Urine Opiates Screen (Not Detect) Urine Fentanyl Screen (Not Detect) Acetaminophen (<30) mcg/mL Ur Barbiturates Screen (Not Detect) Ur Phencyclidine Scrn (Not Detect) Ur Amphetamines Screen (Not Detect) U Benzodiazepines Scrn (Not Detect) Urine Cocaine Screen (Not Detect) U Marijuana (THC) Screen (Not Detect) Ethyl Alcohol < 10 mg/dL Influenza Type A (PCR) (Negative) Influenza Type B (PCR) (Negative) RSV RNA Qual (PCR) (Negative) SARS-CoV-2 RNA (RT-PCR) (Negative) 09/05/21 Range/Units 00:15 WBC (4.8-10.8) X10*3/uL RBC (4.60-5.80) X10*6/uL Hgb (14.0-18.0) g/dl Hct (42.0-52.0) % MCV (80.0-98.0) fL MCH (27.0-33.0) pg MCHC (31.0-36.0) g/dl RDW (11.0-16.0) % Plt Count (160-400) X10*3/uL MPV (9.4-12.4) fL Immature Gran % (Auto) (0.0-0.4) % Neut % (Auto) (45-73) % Lymph % (Auto) (20-40) % Vilas % (Auto) (2-11) % Eos % (Auto) (0-4) % Baso % (Auto) (0-2) % Lymph # (Auto) (1.2-4.9) X10*3/uL Vilas # (Auto) (0.1-1.2) X10*3/uL Eos # (Auto) (0.0-0.4) X10*3/uL Baso # (Auto) (0.0-0.2) X10*3/uL Abs Immat Gran (auto) (0.00-0.03) X10*3/uL Absolute Neuts (auto) (2.0-8.3) x10*3/uL Absolute Nucleated RBC (0.0-0.012) X10*3/uL Nucleated RBC % (auto) (0.0-0.2) /100WBC Sodium (135-145) mmol/L Potassium (3.3-5.1) mmol/L Chloride (96-108) mmol/L Carbon Dioxide (22-29) mmol/L Anion Gap (12-20) BUN (9-16) mg/dL Creatinine (0.5-1.4) mg/dL Estim Creat Clear Calc Estimated GFR POC Glucose (60-115) mg/dL Random Glucose (60-115) mg/dL Lactic Acid (0.5-2.0) mmol/L Calcium (8.4-10.2) mg/dL Phosphorus (2.7-4.5) mg/dL Magnesium (1.6-2.6) mg/dL Total Bilirubin (0.0-1.0) mg/dL AST (5-37) U/L ALT (0-40) U/L Alkaline Phosphatase (39-117) U/L Total Creatine Kinase (38-174) U/L Troponin I High Sens (<3.5-35.0) ng/L Total Protein (6.5-8.0) g/dL Albumin (3.5-5.0) g/dL Lipase (8-78) U/L TSH (0.32-4.0) uIU/mL Urine Color Urine Appearance Urine pH (5.0-8.0) Ur Specific Allison (1.005-1.025) Urine Protein (NEG-TRACE) MG/DL Urine Glucose (UA) (NEG) MG/DL Urine Ketones (NEG) MG/DL Urine Blood (NEG) Urine Nitrite (NEG) Ur Leukocyte Esterase (NEG) Salicylates (15-30) mg/dL Urine Opiates Screen (Not Detect) Urine Fentanyl Screen (Not Detect) Acetaminophen (<30) mcg/mL Ur Barbiturates Screen (Not Detect) Ur Phencyclidine Scrn (Not Detect) Ur Amphetamines Screen (Not Detect) U Benzodiazepines Scrn (Not Detect) Urine Cocaine Screen (Not Detect) U Marijuana (THC) Screen (Not Detect) Ethyl Alcohol mg/dL Influenza Type A (PCR) NEGATIVE (Negative) Influenza Type B (PCR) NEGATIVE (Negative) RSV RNA Qual (PCR) NEGATIVE (Negative) SARS-CoV-2 RNA (RT-PCR) NEGATIVE (Negative) <Raffy Mera MD - Last Filed: 09/05/21 08:08> Lab Results 09/04/21 09/04/21 09/04/21 Range/Units 23:31 23:47 23:47 WBC (4.8-10.8) X10*3/uL RBC (4.60-5.80) X10*6/uL Hgb (14.0-18.0) g/dl Hct (42.0-52.0) % MCV (80.0-98.0) fL MCH (27.0-33.0) pg MCHC (31.0-36.0) g/dl RDW (11.0-16.0) % Plt Count (160-400) X10*3/uL MPV (9.4-12.4) fL Immature Gran % (Auto) (0.0-0.4) % Neut % (Auto) (45-73) % Lymph % (Auto) (20-40) % Vilas % (Auto) (2-11) % Eos % (Auto) (0-4) % Baso % (Auto) (0-2) % Lymph # (Auto) (1.2-4.9) X10*3/uL Vilas # (Auto) (0.1-1.2) X10*3/uL Eos # (Auto) (0.0-0.4) X10*3/uL Baso # (Auto) (0.0-0.2) X10*3/uL Abs Immat Gran (auto) (0.00-0.03) X10*3/uL Absolute Neuts (auto) (2.0-8.3) x10*3/uL Absolute Nucleated RBC (0.0-0.012) X10*3/uL Nucleated RBC % (auto) (0.0-0.2) /100WBC Sodium (135-145) mmol/L Potassium (3.3-5.1) mmol/L Chloride (96-108) mmol/L Carbon Dioxide (22-29) mmol/L Anion Gap (12-20) BUN (9-16) mg/dL Creatinine (0.5-1.4) mg/dL Estim Creat Clear Calc Estimated GFR POC Glucose 114 (60-115) mg/dL Random Glucose (60-115) mg/dL Lactic Acid (0.5-2.0) mmol/L Calcium (8.4-10.2) mg/dL Phosphorus (2.7-4.5) mg/dL Magnesium (1.6-2.6) mg/dL Total Bilirubin (0.0-1.0) mg/dL AST (5-37) U/L ALT (0-40) U/L Alkaline Phosphatase (39-117) U/L Total Creatine Kinase (38-174) U/L Troponin I High Sens (<3.5-35.0) ng/L Total Protein (6.5-8.0) g/dL Albumin (3.5-5.0) g/dL Lipase (8-78) U/L TSH (0.32-4.0) uIU/mL Urine Color YELLOW Urine Appearance CLEAR Urine pH 6.0 (5.0-8.0) Ur Specific Allison 1.025 (1.005-1.025) Urine Protein NEG (NEG-TRACE) MG/DL Urine Glucose (UA) NEG (NEG) MG/DL Urine Ketones NEG (NEG) MG/DL Urine Blood NEG (NEG) Urine Nitrite NEG (NEG) Ur Leukocyte Esterase NEG (NEG) Salicylates (15-30) mg/dL Urine Opiates Screen Not Detected (Not Detect) Urine Fentanyl Screen Not Detected (Not Detect) Acetaminophen (<30) mcg/mL Ur Barbiturates Screen Not Detected (Not Detect) Ur Phencyclidine Scrn Not Detected (Not Detect) Ur Amphetamines Screen Not Detected (Not Detect) U Benzodiazepines Scrn Not Detected (Not Detect) Urine Cocaine Screen POSITIVE H (Not Detect) U Marijuana (THC) Screen POSITIVE H (Not Detect) Ethyl Alcohol mg/dL Influenza Type A (PCR) (Negative) Influenza Type B (PCR) (Negative) RSV RNA Qual (PCR) (Negative) SARS-CoV-2 RNA (RT-PCR) (Negative) 09/05/21 09/05/21 09/05/21 Range/Units 00:05 00:05 00:05 WBC 4.3 L (4.8-10.8) X10*3/uL RBC 5.16 (4.60-5.80) X10*6/uL Hgb 15.2 (14.0-18.0) g/dl Hct 47.4 (42.0-52.0) % MCV 91.9 (80.0-98.0) fL MCH 29.5 (27.0-33.0) pg MCHC 32.1 (31.0-36.0) g/dl RDW 13.5 (11.0-16.0) % Plt Count 231 (160-400) X10*3/uL MPV 9.2 L (9.4-12.4) fL Immature Gran % (Auto) 0.5 H (0.0-0.4) % Neut % (Auto) 57.5 (45-73) % Lymph % (Auto) 30.3 (20-40) % Vilas % (Auto) 10.3 (2-11) % Eos % (Auto) 0.9 (0-4) % Baso % (Auto) 0.5 (0-2) % Lymph # (Auto) 1.3 (1.2-4.9) X10*3/uL [place] # (Auto) 0.4 (0.1-1.2) X10*3/uL Eos # (Auto) 0.0 (0.0-0.4) X10*3/uL Baso # (Auto) 0.0 (0.0-0.2) X10*3/uL Abs Immat Gran (auto) 0.02 (0.00-0.03) X10*3/uL Absolute Neuts (auto) 2.5 (2.0-8.3) x10*3/uL Absolute Nucleated RBC 0.000 (0.0-0.012) X10*3/uL Nucleated RBC % (auto) 0.0 (0.0-0.2) /100WBC Sodium 139 (135-145) mmol/L Potassium 4.7 (3.3-5.1) mmol/L Chloride 106 (96-108) mmol/L Carbon Dioxide 24 (22-29) mmol/L Anion Gap 14 (12-20) BUN 7 L (9-16) mg/dL Creatinine 0.95 (0.5-1.4) mg/dL Estim Creat Clear Calc 90.2 Estimated GFR > 60 POC Glucose (60-115) mg/dL Random Glucose 119 H D (60-115) mg/dL Lactic Acid 1.1 (0.5-2.0) mmol/L Calcium 9.4 D (8.4-10.2) mg/dL Phosphorus 4.2 (2.7-4.5) mg/dL Magnesium 2.4 (1.6-2.6) mg/dL Total Bilirubin 1.3 H (0.0-1.0) mg/dL AST 16 D (5-37) U/L ALT 14 (0-40) U/L Alkaline Phosphatase 78 (39-117) U/L Total Creatine Kinase 70 (38-174) U/L Troponin I High Sens (<3.5-35.0) ng/L Total Protein 6.7 (6.5-8.0) g/dL Albumin 4.2 (3.5-5.0) g/dL Lipase 18 (8-78) U/L TSH (0.32-4.0) uIU/mL Urine Color Urine Appearance Urine pH (5.0-8.0) Ur Specific Allison (1.005-1.025) Urine Protein (NEG-TRACE) MG/DL Urine Glucose (UA) (NEG) MG/DL Urine Ketones (NEG) MG/DL Urine Blood (NEG) Urine Nitrite (NEG) Ur Leukocyte Esterase (NEG) Salicylates < 5.0 L (15-30) mg/dL Urine Opiates Screen (Not Detect) Urine Fentanyl Screen (Not Detect) Acetaminophen < 1 (<30) mcg/mL Ur Barbiturates Screen (Not Detect) Ur Phencyclidine Scrn (Not Detect) Ur Amphetamines Screen (Not Detect) U Benzodiazepines Scrn (Not Detect) Urine Cocaine Screen (Not Detect) U Marijuana (THC) Screen (Not Detect) Ethyl Alcohol mg/dL Influenza Type A (PCR) (Negative) Influenza Type B (PCR) (Negative) RSV RNA Qual (PCR) (Negative) SARS-CoV-2 RNA (RT-PCR) (Negative) 09/05/21 09/05/21 09/05/21 Range/Units 00:05 00:05 00:05 WBC (4.8-10.8) X10*3/uL RBC (4.60-5.80) X10*6/uL Hgb (14.0-18.0) g/dl Hct (42.0-52.0) % MCV (80.0-98.0) fL MCH (27.0-33.0) pg MCHC (31.0-36.0) g/dl RDW (11.0-16.0) % Plt Count (160-400) X10*3/uL MPV (9.4-12.4) fL Immature Gran % (Auto) (0.0-0.4) % Neut % (Auto) (45-73) % Lymph % (Auto) (20-40) % [place] % (Auto) (2-11) % Eos % (Auto) (0-4) % Baso % (Auto) (0-2) % Lymph # (Auto) (1.2-4.9) X10*3/uL [place] # (Auto) (0.1-1.2) X10*3/uL Eos # (Auto) (0.0-0.4) X10*3/uL Baso # (Auto) (0.0-0.2) X10*3/uL Abs Immat Gran (auto) (0.00-0.03) X10*3/uL Absolute Neuts (auto) (2.0-8.3) x10*3/uL Absolute Nucleated RBC (0.0-0.012) X10*3/uL Nucleated RBC % (auto) (0.0-0.2) /100WBC Sodium (135-145) mmol/L Potassium (3.3-5.1) mmol/L Chloride (96-108) mmol/L Carbon Dioxide (22-29) mmol/L Anion Gap (12-20) BUN (9-16) mg/dL Creatinine (0.5-1.4) mg/dL Estim Creat Clear Calc Estimated GFR POC Glucose (60-115) mg/dL Random Glucose (60-115) mg/dL Lactic Acid (0.5-2.0) mmol/L Calcium (8.4-10.2) mg/dL Phosphorus (2.7-4.5) mg/dL Magnesium (1.6-2.6) mg/dL Total Bilirubin (0.0-1.0) mg/dL AST (5-37) U/L ALT (0-40) U/L Alkaline Phosphatase (39-117) U/L Total Creatine Kinase (38-174) U/L Troponin I High Sens < 3.5 (<3.5-35.0) ng/L Total Protein (6.5-8.0) g/dL Albumin (3.5-5.0) g/dL Lipase (8-78) U/L TSH 0.35 (0.32-4.0) uIU/mL Urine Color Urine Appearance Urine pH (5.0-8.0) Ur Specific Allison (1.005-1.025) Urine Protein (NEG-TRACE) MG/DL Urine Glucose (UA) (NEG) MG/DL Urine Ketones (NEG) MG/DL Urine Blood (NEG) Urine Nitrite (NEG) Ur Leukocyte Esterase (NEG) Salicylates (15-30) mg/dL Urine Opiates Screen (Not Detect) Urine Fentanyl Screen (Not Detect) Acetaminophen (<30) mcg/mL Ur Barbiturates Screen (Not Detect) Ur Phencyclidine Scrn (Not Detect) Ur Amphetamines Screen (Not Detect) U Benzodiazepines Scrn (Not Detect) Urine Cocaine Screen (Not Detect) U Marijuana (THC) Screen (Not Detect) Ethyl Alcohol < 10 mg/dL Influenza Type A (PCR) (Negative) Influenza Type B (PCR) (Negative) RSV RNA Qual (PCR) (Negative) SARS-CoV-2 RNA (RT-PCR) (Negative) 09/05/21 Range/Units 00:15 WBC (4.8-10.8) X10*3/uL RBC (4.60-5.80) X10*6/uL Hgb (14.0-18.0) g/dl Hct (42.0-52.0) % MCV (80.0-98.0) fL MCH (27.0-33.0) pg MCHC (31.0-36.0) g/dl RDW (11.0-16.0) % Plt Count (160-400) X10*3/uL MPV (9.4-12.4) fL Immature Gran % (Auto) (0.0-0.4) % Neut % (Auto) (45-73) % Lymph % (Auto) (20-40) % Vilas % (Auto) (2-11) % Eos % (Auto) (0-4) % Baso % (Auto) (0-2) % Lymph # (Auto) (1.2-4.9) X10*3/uL Vilas # (Auto) (0.1-1.2) X10*3/uL Eos # (Auto) (0.0-0.4) X10*3/uL Baso # (Auto) (0.0-0.2) X10*3/uL Abs Immat Gran (auto) (0.00-0.03) X10*3/uL Absolute Neuts (auto) (2.0-8.3) x10*3/uL Absolute Nucleated RBC (0.0-0.012) X10*3/uL Nucleated RBC % (auto) (0.0-0.2) /100WBC Sodium (135-145) mmol/L Potassium (3.3-5.1) mmol/L Chloride (96-108) mmol/L Carbon Dioxide (22-29) mmol/L Anion Gap (12-20) BUN (9-16) mg/dL Creatinine (0.5-1.4) mg/dL Estim Creat Clear Calc Estimated GFR POC Glucose (60-115) mg/dL Random Glucose (60-115) mg/dL Lactic Acid (0.5-2.0) mmol/L Calcium (8.4-10.2) mg/dL Phosphorus (2.7-4.5) mg/dL Magnesium (1.6-2.6) mg/dL Total Bilirubin (0.0-1.0) mg/dL AST (5-37) U/L ALT (0-40) U/L Alkaline Phosphatase (39-117) U/L Total Creatine Kinase (38-174) U/L Troponin I High Sens (<3.5-35.0) ng/L Total Protein (6.5-8.0) g/dL Albumin (3.5-5.0) g/dL Lipase (8-78) U/L TSH (0.32-4.0) uIU/mL Urine Color Urine Appearance Urine pH (5.0-8.0) Ur Specific Allison (1.005-1.025) Urine Protein (NEG-TRACE) MG/DL Urine Glucose (UA) (NEG) MG/DL Urine Ketones (NEG) MG/DL Urine Blood (NEG) Urine Nitrite (NEG) Ur Leukocyte Esterase (NEG) Salicylates (15-30) mg/dL Urine Opiates Screen (Not Detect) Urine Fentanyl Screen (Not Detect) Acetaminophen (<30) mcg/mL Ur Barbiturates Screen (Not Detect) Ur Phencyclidine Scrn (Not Detect) Ur Amphetamines Screen (Not Detect) U Benzodiazepines Scrn (Not Detect) Urine Cocaine Screen (Not Detect) U Marijuana (THC) Screen (Not Detect) Ethyl Alcohol mg/dL Influenza Type A (PCR) NEGATIVE (Negative) Influenza Type B (PCR) NEGATIVE (Negative) RSV RNA Qual (PCR) NEGATIVE (Negative) SARS-CoV-2 RNA (RT-PCR) NEGATIVE (Negative) <Mary Healy NP - Last Filed: 09/06/21 08:21> Discharge Plan Discharge Clinical Impression: Suicide attempt, Intentional overdose <Raffy Mera MD - Last Filed: 09/05/21 08:08> Patient Disposition: Still a Patient <Raffy Mera MD - Last Filed: 09/05/21 08:08> Prescriptions: No Action levofloxacin 750 mg tablet 750 mg PO DAILY 7 Days Qty: 7 0RF <Raffy Mera MD - Last Filed: 09/05/21 08:08>
--- NOTE | 2021-09-05 07:54 | PC.NURSE ---
Poison control called, request mag and phosphorous levels for patient, none drawn earlier, added order and called lab who said they have enough blood to add on to blood work drawn earlier.
[2021-09-05 08:09] LABS: Magnesium 2.4 mg/dL (1.6-2.6); Phosphorus 4.2 mg/dL (2.7-4.5)
--- NOTE | 2021-09-05 09:42 | MHC.CARE ---
Smart sheet submitted
--- NOTE | 2021-09-05 11:45 | ECG_ITS ---
Test Reason : CP Blood Pressure : / mmHG Vent. Rate : 063 BPM Atrial Rate : 063 BPM P-R Int : 170 ms QRS Dur : 094 ms QT Int : 440 ms P-R-T Axes : 085 100 066 degrees QTc Int : 450 ms Normal sinus rhythm Rightward axis Early repolarization Borderline ECG No previous ECGs available Referred By: Generic ED Physician Electronically Signed By:NAVDEEP TOBAR MD
--- NOTE | 2021-09-05 12:35 | MHC.CARE ---
Please contact the CARE Team when patient is medically cleared for crisis evaluation.
--- NOTE | 2021-09-06 00:56 | MHC.CARE ---
Per ED physician- pt was medically cleared for evaluation earlier this evening. New smart sheet has been completed and sent to [facility]
[2021-09-06 01:31] VITALS: BP 121/71; PULSE 75; RESP 20; TEMP 37.3; O2SAT 100
[2021-09-06 02:15] VITALS: BP 122/68; PULSE 81; RESP 17; TEMP 37.2; O2SAT 98
[2021-09-06 04:55] VITALS: BP 110/64; PULSE 81; RESP 19; TEMP 37.3; O2SAT 100
--- NOTE | 2021-09-06 06:09 | PC.NURSE ---
Patient just got transferred from main ED, medically cleared, Awaiting BHN consult, BHN called/confirmed/receipt of referral, patient ambulated independently, denied distress at this time, VSS, will continue to monitor.
--- NOTE | 2021-09-06 07:07 | PC.NURSE ---
Report received. PT currently resting, denies complaints. In no apparent distress, pt is waiting to be seen.
--- NOTE | 2021-09-06 07:08 | PC.NURSE ---
poison controlled called this morning and medically clear pt. pt oob with steady gait. Martin and Iv removed by pt RN.
[2021-09-06 10:55] VITALS: BP 126/69; PULSE 93; RESP 15; TEMP 36.8; O2SAT 99
[2021-09-06 17:07] LABS: COVID-19 Test Negative (Negative)
[2021-09-06 19:25] VITALS: BP 115/66; PULSE 82; RESP 16; O2SAT 99
[2021-09-06 19:44] VITALS: BMI 16.2
--- NOTE | 2021-09-07 05:16 | PC.ADMIT ---
Pt is a 26 year old male admitted to the unit after referral from the CARE team at [facility]. Arrived on unit at 1910. Legal status: CV. Medical issues: conductive hearing loss. Substance use: pt reports daily marijuana and mostly daily cocaine use. Precipitant: Pt has been experiencing an increase in depression and anxiety since his mother was diagnosed with stage 4 pancreatic cancer that has also spread to her liver last year. Pt has not been leaving his room much and has had lack of interest in activities. On September 04 pt's mother found him lying on his bedroom floor snoring loudly ; she discovered that he had overdosed on approx. 6800 mg gabapentin. At the time of admission pt stated that he did not recall much of the events leading up to this admission. He does recall having suicidal thoughts the day of the overdose. Crisis assessment denies a prior history of suicide attempts, however pt states that he was hospitalized as a teenager after a suicide attempt that was also by overdose. Pt has a remote history of cutting at age 12. He reports being compliant with medication. He does not have current outpatient providers, however states that he had been trying to establish a therapist and psychiatrist. Pt reports poor appetite, denies sleep disturbance, though crisis assessment states pt reported difficulty sleeping despite taking medication. At the time of admission assessment pt presented with somewhat anxious and depressed affect. Though he states it is scary learning details of his overdose, he does not appear to grasp the severity of his attempt. Pt denies hallucinations, no apparent symptoms of psychosis noted, denies current SI or self-harming thoughts. He is pleasant and cooperative throughout assessment. Medications verified with pharmacy. Psychiatrist notified of admission and orders obtained. Pt placed on 15 minute safety checks.
[2021-09-07 07:00] VITALS: BMI 16.2
[2021-09-07 08:45] VITALS: BP 118/64; PULSE 81; RESP 16; TEMP 36.9; O2SAT 100
[2021-09-07 09:45] LABS: Magnesium 2.6 mg/dL (1.6-2.6)
[2021-09-07 10:07] LABS: Free T4 (Free Thyroxine) 1.04 ng/dL (0.71-1.85); Thyroid Stimulating Hormone 0.46 uIU/mL (0.32-4.0)
[2021-09-07 10:22] LABS: Folate 6.1 ng/mL (> or = 4.0); Vitamin B12 163 pg/mL (200-900)
[2021-09-07 13:35] VITALS: BMI 16.2
--- NOTE | 2021-09-07 13:42 | MHC.CLN ---
PT IS MODERATELY MALNOURISHED PT WITH 9.5% NON SIGNIFICANT WT LOSS X 1 YEAR WITH CHRONIC POOR PO INTAKE ATTRIBUTED TO DEPRESSION SECONDARY TO MOTHER'S TERMINAL DX AND HX OF CHRONIC COCAINE ABUSE PT ON LOWER END OF IBW RANGE. UBW RANGE APPEARS 120# DIET RX: REGULAR-APPROPRIATE MONITOR PO INTAKE CLOSELY IF PO REMAINS POOR; CAN ADD ENSURE BID TO PROVIDE 700KCALS, 40G PROTEIN WEEKLY WEIGHTS WHILE ADMITTED SEE ALSO FULL CLINICAL NUTRITION ASSESSMENT
--- NOTE | 2021-09-07 17:10 | HO.PSYADMNOT ---
HPI Date of Service: 09/07/21 Chief Complaint: SI, OD Attempt Sources of Information: patient interviewed, chart reviewed and crisis/core team assessment reviewed HPI Subjective Notes: Ure[place] Warning and Conditional Voluntary Healthcare Proxy: No Guardianship: No Medical Problems Affecting Mental Status: No Narrative: Tim is a 26 y.o. Male who carries a dx of MDD, recurrent and JAYSON. He presented to [facility] on 09/05/21 by ambulance following an overdose on his mom?s gabapentin. Pt?s mother believes he took 68 pills. He was given PO and IV narcan. Per pt?s mom, he has been depressed since she was diagnosed with metastatic pancreatic cancer in 01/2021 and he has not been coming out of his room. Utox positive for cocaine and cannabis. Denies alcohol use. I evaluated the pt this evening and upon interview he reports he has been non-adherent with his trileptal and propranolol (prescribed by PCP) due to not going to pick them up x a couple weeks. PCP also prescribed remeron but he never took it. Pt identifies the precipitating factor as arguing with his mom but does not remember what about. Per pt, ?I had a lot of anger inside? and he ?got upset? and ?decided to just go for it but didnt think it was gonna go to that extent, I didnt want to end my life like that.? Pt says he feels like he can control anger, ?I know how to calm myself down.? However, has hx of angry outbursts in adolescence, would throw things around, break things. Endorses hypersomnia, mostly sleeps all day, does not want to do anything, stays in his room, ?sleeping hours on end every single day.? Says this is the worst his depression has been, ?I was always the type of kid to always be happy and on the go.? In the past used to go outside, socialize. Works as his mom?s [employer]. Says he has not been attending to self care. Appetite comes and goes.? Past Psychiatric History: -No known hx of suicide attempts, one remote instance of cutting when he was 12 y/o. -No OP psych services, on waitlist at [facility] Past meds: Celexa (prescribed by PCP, says it helped but stopped taking it after he switched PCPs). Medical Evaluation Reviewed: Yes PMFSH Medical History Conductive hearing loss Social History: -Pt was raised in [facility] and lived there until 2018 when his parents , then he and his Mother moved to [facility]. Has an older brother who is disabled and lives at home. -Pt graduated high school and went to [employer]. Substance History: -Cannabis: daily -Cocaine: onset age [age], Sporadic use Diagnostics Vital Signs (24Hr): Vital Signs - 24 hr 09/06/21 19:25 09/07/21 08:45 Temperature 98.4 F Pulse Rate 82 81 Respiratory Rate 16 16 Blood Pressure 115/66 118/64 Pulse Oximetry 99 100 BMI result Body Mass Index 16.2 Labs Results: 09/05/21 00:05 09/05/21 00:05 Labs: Laboratory Results - last 48 hr 09/06/21 09/07/21 09/07/21 16:37 08:50 08:50 Magnesium 2.6 Vitamin B12 163 L Folate 6.1 TSH 0.46 Free T4 1.04 COVID-19 (AMRIK) Negative COVID-19 Clin Com See Note Imaging Radiology Impressions: ITS Impressions Chest X-Ray 09/05/21 02:07 IMPRESSION: No acute cardiopulmonary findings. Head CT 09/05/21 09:07 IMPRESSION: No acute intracranial process seen. There is no acute fracture or dislocation in cervical spine. Cervical Spine CT 09/05/21 09:08 IMPRESSION: No acute intracranial process seen. There is no acute fracture or dislocation in cervical spine. Meds/Allergies Meds Home Medications Acetaminophen (Acetaminophen 325 Mg Tablet) 650 mg PO Q6H PRN PRN Reason: Headache/Pain Mild Scale (1-3) Al Hydroxide/Mg Hydroxide (Magnesium Hydrox/Alum Hydrox 30 Ml Oral.Susp) 30 ml PO Q6H PRN PRN Reason: Heartburn/Nausea Escitalopram Oxalate (Escitalopram Oxalate 10 Mg Tablet) 10 mg PO DAILY [place] Hydroxyzine HCl (Hydroxyzine Hcl 25 Mg Tablet) 25 mg PO Q6H PRN PRN Reason: Anxiety Magnesium Hydroxide (Milk Of Magnesia 30 Ml Oral.Susp) 30 ml PO DAILY PRN PRN Reason: Constipation Melatonin (Melatonin 3 Mg Tablet) 9 mg PO BEDTIME [place] Last Admin: 09/07/21 22:20 Dose: 9 mg Documented by: Nicotine Polacrilex (Nicotine Polacrilex 2 Mg Gum) 2 mg BUCCAL Q1H PRN PRN Reason: Nicotine Cravings Oxcarbazepine (Oxcarbazepine 150 Mg Tablet) 150 mg PO BID [place] Last Admin: 09/07/21 22:20 Dose: 150 mg Documented by: Propranolol HCl (Propranolol Hcl 10 Mg Tablet) 10 mg PO Q8H PRN; Protocol PRN Reason: anxiety Trazodone HCl (Trazodone Hcl 50 Mg Tablet) 50 mg PO BEDTIME PRN PRN Reason: Insomnia Allergies Allergies Allergy/AdvReac Type Severity Reaction Status Date / Time minocycline [MINOCYCLINE] Allergy Unknown URINATE Verified 07/21/20 08:42 BLOOD Mental Status Exam Mental Status Exam Narrative: A&O. In hospital attire, laying down in bed, thin body habitus. Poor eye contact, attentive. No Tics or Tremors. No abnormal involuntary movements. Calm, cooperative, engaged. Non-pressured speech, spontaneous with regular rate and rhythm, normal volume and prosody. No prolonged speech latency or dysarthria. Mood is ?depressed,? affect is tired. Denies SI/SIB/HI upon inquiry. Denies A/VH or delusional thought content. Thoughts are coherent, organized. No known cognitive or memory impairment. Insight/ Judgment fair and adequate. Assessment & Plan Assessment & Plan (1) MDD (major depressive disorder), recurrent episode, moderate: Status: Acute Code(s): F33.1 - Major depressive disorder, recurrent, moderate (2) JAYSON (generalized anxiety disorder): Status: Acute Code(s): F41.1 - Generalized anxiety disorder Plan Tim is a 26 y.o. Male who carries a dx of MDD, recurrent and JAYSON. He presented to [facility] on 09/05/21 by ambulance following an overdose on his mom?s gabapentin. Per pt?s mom, he has been depressed since she was diagnosed with metastatic pancreatic cancer in 01/2021 and he has not been coming out of his room. Utox positive for cocaine and cannabis. Has been nonadherent with PO trileptal and propranolol PRN, prescribed PCP. Says trileptal was started in adolescence for angry outbursts, which have calmed down. Plan: Will re-start OP med regimen of trileptal 150 mg BID and propranolol 10 mg PRN. Pt reports the trileptal ?helps with my mood,? ?makes me feel more calm.? Says he uses propranolol out in public i.e. out in mall, as he feels anxious and ?it calms me down.??Hx of celexa with good effect. Will start lexapro 10 mg QD for sx of depression, anxiety. Will monitor for activating SE. Q15 min safety checks, CV Monitor response to medications. Monitor for safety in the milieu. Discharge on stabilization. Patient seen. Chart reviewed. Discussed with team. Obtain collateral contact info?as needed Patient educated on: medication risk/benefits Reason for continued inpatient stay Substantial Risk for: harm to self and med/psych decompensation
[2021-09-07 22:09] VITALS: BP 113/61; PULSE 98; RESP 16; TEMP 36.3; O2SAT 97
[2021-09-07] MEDS: Melatonin 3 MG TABLET 9 MG PO (22:20)
[2021-09-07] MEDS: OXcarbazepine 150 MG TABLET PO (22:20)
[2021-09-08] MEDS: Escitalopram Oxalate 10 MG TABLET PO (09:26)
[2021-09-08] MEDS: OXcarbazepine 150 MG TABLET PO ×2 (09:26→20:36)
[2021-09-08 09:35] VITALS: BP 111/68; PULSE 82; RESP 18; TEMP 36.2; O2SAT 98
--- NOTE | 2021-09-08 15:13 | MHC.CLN ---
F/U VISITED PATIENT WHILE EATING LUNCH IN HIS ROOM. DRANK WELL AND WAS JUST BEGINNING MEAL. ADDING ENSURE TID PER CONVERSATION WITH PATIENT. TAKES AT HOME. PROVIDES 1050 KCAL, 60 G PROTEIN. PATIENT ALLOWED FOR PHYSICAL EXAM SHOWING MILD FAT DEPLETION AND MILD MUSCLE MASS DEPLETION. FOLLOW INTAKE AND WEIGHTS.
--- NOTE | 2021-09-08 18:11 | HO.PSYCHPN ---
Subjective Subjective Date of Service: 09/08/21 Reason For Visit: SI, OD Attempt Interim History: Patient seen and discussed with team. Patient evaluated today and upon interview he reports it was Marisela hard to get out of bed this morning, however once awake he was able to participate in activities, do whatever i needed to do. Says he is doing alright. [place] nauseous, dizzy after lexapro but this wore off and says this same reaction happened with celexa start. Hasn't needed to use the propranolol, not as anxious here. Denies SI. Mood is good, i've been good. Signed 3 day notice.? Medication Compliance: Yes Side effects from medications: No Attending Groups: Intermittent Review of Systems Acute medical concerns: No Medical Review of Systems: unchanged Mental Status Exam Mental Status Exam Narrative: A&O. In hospital attire, laying down in bed, thin body habitus. Poor eye contact, attentive. No Tics or Tremors. No abnormal involuntary movements. Calm, cooperative, engaged. Non-pressured speech, spontaneous with regular rate and rhythm, normal volume and prosody. No prolonged speech latency or dysarthria. Mood is ?depressed,? affect is tired. Denies SI/SIB/HI upon inquiry. Denies A/VH or delusional thought content. Thoughts are coherent, organized. No known cognitive or memory impairment. Insight/ Judgment fair and adequate. Diagnostics Vital Signs (24Hr): Vital Signs - 24 hr 09/07/21 22:09 09/08/21 09:35 Temperature 97.3 F 97.2 F Pulse Rate 98 82 Respiratory Rate 16 18 Blood Pressure 113/61 111/68 Pulse Oximetry 97 98 BMI result Body Mass Index 16.2 Labs Results: 09/05/21 00:05 09/05/21 00:05 Labs: Laboratory Results - last 48 hr 09/07/21 09/07/21 08:50 08:50 Magnesium 2.6 Vitamin B12 163 L Folate 6.1 TSH 0.46 Free T4 1.04 Imaging Radiology Impressions: ITS Impressions Chest X-Ray 09/05/21 02:07 IMPRESSION: No acute cardiopulmonary findings. Head CT 09/05/21 09:07 IMPRESSION: No acute intracranial process seen. There is no acute fracture or dislocation in cervical spine. Cervical Spine CT 09/05/21 09:08 IMPRESSION: No acute intracranial process seen. There is no acute fracture or dislocation in cervical spine. Medications Medications Current Medications Acetaminophen (Acetaminophen 325 Mg Tablet) 650 mg PO Q6H PRN PRN Reason: Headache/Pain Mild Scale (1-3) Al Hydroxide/Mg Hydroxide (Magnesium Hydrox/Alum Hydrox 30 Ml Oral.Susp) 30 ml PO Q6H PRN PRN Reason: Heartburn/Nausea Escitalopram Oxalate (Escitalopram Oxalate 10 Mg Tablet) 10 mg PO DAILY [facility] Last Admin: 09/08/21 09:26 Dose: 10 mg Documented by: Hydroxyzine HCl (Hydroxyzine Hcl 25 Mg Tablet) 25 mg PO Q6H PRN PRN Reason: Anxiety Magnesium Hydroxide (Milk Of Magnesia 30 Ml Oral.Susp) 30 ml PO DAILY PRN PRN Reason: Constipation Melatonin (Melatonin 3 Mg Tablet) 9 mg PO BEDTIME [facility] Last Admin: 09/07/21 22:20 Dose: 9 mg Documented by: Nicotine Polacrilex (Nicotine Polacrilex 2 Mg Gum) 2 mg BUCCAL Q1H PRN PRN Reason: Nicotine Cravings Oxcarbazepine (Oxcarbazepine 150 Mg Tablet) 150 mg PO BID [facility] Last Admin: 09/08/21 09:26 Dose: 150 mg Documented by: Propranolol HCl (Propranolol Hcl 10 Mg Tablet) 10 mg PO Q8H PRN; Protocol PRN Reason: anxiety Trazodone HCl (Trazodone Hcl 50 Mg Tablet) 50 mg PO BEDTIME PRN PRN Reason: Insomnia Allergies Allergies Allergy/AdvReac Type Severity Reaction Status Date / Time minocycline [MINOCYCLINE] Allergy Unknown URINATE Verified 07/21/20 08:42 BLOOD Assessment & Plan Assessment & Plan (1) MDD (major depressive disorder), recurrent episode, moderate: Status: Acute Code(s): F33.1 - Major depressive disorder, recurrent, moderate (2) JAYSON (generalized anxiety disorder): Status: Acute Code(s): F41.1 - Generalized anxiety disorder Plan Tim is a 26 y.o. Male who carries a dx of MDD, recurrent and JAYSON. He presented to [facility] on 09/05/21 by ambulance following an overdose on his mom?s gabapentin. Per pt?s mom, he has been depressed since she was diagnosed with metastatic pancreatic cancer in 01/2021 and he has not been coming out of his room. Utox positive for cocaine and cannabis. Has been nonadherent with PO trileptal and propranolol PRN, prescribed PCP. Says trileptal was started in adolescence for angry outbursts, which have calmed down. Plan: Will re-start OP med regimen of trileptal 150 mg BID and propranolol 10 mg PRN. Pt reports the trileptal ?helps with my mood,? ?makes me feel more calm.? Says he uses propranolol out in public i[place]e. out in mall, as he feels anxious and ?it calms me down.??Hx of celexa with good effect. Will start lexapro 10 mg QD for sx of depression, anxiety. Will monitor for activating SE. 09/08: Continue lexapro trial Q15 min safety checks, CV Monitor response to medications. Monitor for safety in the milieu. Discharge on stabilization. Patient seen. Chart reviewed. Discussed with team. Obtain collateral contact info?as needed I spent minutes with the patient and/or on the patient floor today, greater than?50% of which was spent counseling/coordinating care. Patient educated on: medication risk/benefits Reason for contiued inpatient stay Substantial Risk for: harm to self and med/psych decompensation
[2021-09-08 20:21] VITALS: BP 115/59; PULSE 70; RESP 16; TEMP 36.6; O2SAT 98
[2021-09-08] MEDS: Melatonin 3 MG TABLET 9 MG PO (20:36)
[2021-09-09] MEDS: Escitalopram Oxalate 10 MG TABLET PO (09:32)
[2021-09-09] MEDS: OXcarbazepine 150 MG TABLET PO ×2 (09:32→20:42)
[2021-09-09 09:39] VITALS: BP 131/92; PULSE 101; RESP 17; TEMP 36.8; O2SAT 98
--- NOTE | 2021-09-09 12:05 | P.PNPSI_ITS ---
Subjective Subjective Date of Service: 09/09/21 Reason For Visit: SI, OD Attempt Subjective Notes: 3 Day Interim History: Patient seen and discussed with staff. Patient reports he felt better this am with meds- no dizziness. eating well. Denies SI. reports mood is good. 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 In hospital attire, laying down in bed, Makes good eye contact, attentive. No Tics or Tremors. No abnormal involuntary movements. Calm, cooperative, easily engaged. Non-pressured speech, spontaneous with regular rate and rhythm, normal volume and prosody. No prolonged speech latency or dysarthria. Mood is sad. affect is tired. Denies SI/SIB/HI upon inquiry. Denies A/VH or delusional thought content. Thoughts are coherent, organized. No known cognitive or memory impairment. Insight/ Judgment fair and adequate. Diagnostics Vital Signs (24Hr): Vital Signs - 24 hr 09/08/21 20:21 09/09/21 09:39 Temperature 97.9 F 98.2 F Pulse Rate 70 101 H Respiratory Rate 16 17 Blood Pressure 115/59 L 131/92 H Pulse Oximetry 98 98 BMI result Body Mass Index 16.2 Labs Results: 09/05/21 00:05 09/05/21 00:05 Imaging Radiology Impressions: ITS Impressions Chest X-Ray 09/05/21 02:07 IMPRESSION: No acute cardiopulmonary findings. Head CT 09/05/21 09:07 IMPRESSION: No acute intracranial process seen. There is no acute fracture or dislocation in cervical spine. Cervical Spine CT 09/05/21 09:08 IMPRESSION: No acute intracranial process seen. There is no acute fracture or dislocation in cervical spine. Medications Medications Current Medications Acetaminophen (Acetaminophen 325 Mg Tablet) 650 mg PO Q6H PRN PRN Reason: Headache/Pain Mild Scale (1-3) Al Hydroxide/Mg Hydroxide (Magnesium Hydrox/Alum Hydrox 30 Ml Oral.Susp) 30 ml PO Q6H PRN PRN Reason: Heartburn/Nausea Escitalopram Oxalate (Escitalopram Oxalate 10 Mg Tablet) 10 mg PO DAILY [facility] Last Admin: 09/09/21 09:32 Dose: 10 mg Documented by: Hydroxyzine HCl (Hydroxyzine Hcl 25 Mg Tablet) 25 mg PO Q6H PRN PRN Reason: Anxiety Magnesium Hydroxide (Milk Of Magnesia 30 Ml Oral.Susp) 30 ml PO DAILY PRN PRN Reason: Constipation Melatonin (Melatonin 3 Mg Tablet) 9 mg PO BEDTIME [facility] Last Admin: 09/08/21 20:36 Dose: 9 mg Documented by: Nicotine Polacrilex (Nicotine Polacrilex 2 Mg Gum) 2 mg BUCCAL Q1H PRN PRN Reason: Nicotine Cravings Oxcarbazepine (Oxcarbazepine 150 Mg Tablet) 150 mg PO BID [facility] Last Admin: 09/09/21 09:32 Dose: 150 mg Documented by: Propranolol HCl (Propranolol Hcl 10 Mg Tablet) 10 mg PO Q8H PRN; Protocol PRN Reason: anxiety Trazodone HCl (Trazodone Hcl 50 Mg Tablet) 50 mg PO BEDTIME PRN PRN Reason: Insomnia Allergies Allergies Allergy/AdvReac Type Severity Reaction Status Date / Time minocycline [MINOCYCLINE] Allergy Unknown URINATE Verified 07/21/20 08:42 BLOOD Assessment & Plan Assessment & Plan (1) MDD (major depressive disorder), recurrent episode, moderate: Status: Acute Code(s): F33.1 - Major depressive disorder, recurrent, moderate (2) JAYSON (generalized anxiety disorder): Status: Acute Code(s): F41.1 - Generalized anxiety disorder Plan Tim is a 26 y.o. Male who carries a dx of MDD, recurrent and JAYSON. He presented [place] [facility] on 09/05/21 by ambulance following an overdose on his mom?s gabapentin. Per pt?s mom, he has been depressed since she was diagnosed with metastatic pancreatic cancer in 01/2021 and he has not been coming out of his room. Utox positive for cocaine and cannabis. Has been nonadherent with PO trileptal and propranolol PRN, prescribed PCP. Says trileptal was started in adolescence for angry outbursts, which have calmed down. Plan: Will re-start OP med regimen of trileptal 150 mg BID and propranolol 10 mg PRN. Pt reports the trileptal ?helps with my mood,? ?makes me feel more calm.? Says he uses propranolol out in public i[place]e. out in mall, as he feels anxious and ?it calms me down.??Hx of celexa with good effect. Will start lexapro 10 mg QD for sx of depression, anxiety. Will monitor for activating SE. 09/08: Continue lexapro trial 09/09 Continue current treatment plan Q15 min safety checks, CV Monitor response to medications. Monitor for safety in the milieu. Discharge on stabilization. Patient seen. Chart reviewed. Discussed with team. Obtain collateral contact info?as needed I spent minutes with the patient and/or on the patient floor today, greater than?50% of which was spent counseling/coordinating care. Reason for contiued inpatient stay Substantial Risk for: harm to self, inability to function, rapid decompensation and med/psych decompensation
[2021-09-09] MEDS: Milk of Magnesia 30 ML ORAL.SUSP PO (14:33)
[2021-09-09 20:32] VITALS: BP 121/67; PULSE 68; RESP 16; TEMP 36.6; O2SAT 98
[2021-09-09] MEDS: Melatonin 3 MG TABLET 9 MG PO (20:42)
[2021-09-09] MEDS: hydrOXYzine HCL 25 MG TABLET PO (20:43)
[2021-09-09] MEDS: Acetaminophen 325 MG TABLET 650 MG PO (20:43)
[2021-09-10 09:06] VITALS: PULSE 80; RESP 16; TEMP 36.6; O2SAT 98
[2021-09-10] MEDS: OXcarbazepine 150 MG TABLET PO ×2 (09:44→20:34)
[2021-09-10] MEDS: Escitalopram Oxalate 10 MG TABLET PO (09:44)
--- NOTE | 2021-09-10 15:58 | HO.PSYCHPN ---
Subjective Subjective Date of Service: 09/10/21 Reason For Visit: SI, OD Attempt Subjective Notes: 3 Day Interim History: Patient seen and discussed with staff. Patient reports he felt better this am with meds- no dizziness. does report some mild intermittent dizziness yesterday lte in day bt nild and transient. eating well. Denies SI. reports mood is good. 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 In hospital attire, laying down in bed, Makes good eye contact, attentive. No Tics or Tremors. No abnormal involuntary movements. Calm, cooperative, easily engaged. Non-pressured speech, spontaneous with regular rate and rhythm, normal volume and prosody. No prolonged speech latency or dysarthria. Mood is sad. affect is tired. Denies SI/SIB/HI upon inquiry. Denies A/VH or delusional thought content. Thoughts are coherent, organized. No known cognitive or memory impairment. Insight/ Judgment fair and adequate. Diagnostics Vital Signs (24Hr): Vital Signs - 24 hr 09/09/21 20:32 09/10/21 09:06 Temperature 97.8 F 97.9 F Pulse Rate 68 80 Respiratory Rate 16 16 Blood Pressure 121/67 Pulse Oximetry 98 98 BMI result Body Mass Index 16.2 Labs Results: 09/05/21 00:05 09/05/21 00:05 Imaging Radiology Impressions: ITS Impressions Chest X-Ray 09/05/21 02:07 IMPRESSION: No acute cardiopulmonary findings. Head CT 09/05/21 09:07 IMPRESSION: No acute intracranial process seen. There is no acute fracture or dislocation in cervical spine. Cervical Spine CT 09/05/21 09:08 IMPRESSION: No acute intracranial process seen. There is no acute fracture or dislocation in cervical spine. Medications Medications Current Medications Acetaminophen (Acetaminophen 325 Mg Tablet) 650 mg PO Q6H PRN PRN Reason: Headache/Pain Mild Scale (1-3) Last Admin: 04/09/22 20:43 Dose: 650 mg Documented by: Al Hydroxide/Mg Hydroxide (Magnesium Hydrox/Alum Hydrox 30 Ml Oral.Susp) 30 ml PO Q6H PRN PRN Reason: Heartburn/Nausea Escitalopram Oxalate (Escitalopram Oxalate 10 Mg Tablet) 10 mg PO DAILY [facility] Last Admin: 09/10/21 09:44 Dose: 10 mg Documented by: Hydroxyzine HCl (Hydroxyzine Hcl 25 Mg Tablet) 25 mg PO Q6H PRN PRN Reason: Anxiety Last Admin: 09/09/21 20:43 Dose: 25 mg Documented by: Magnesium Hydroxide (Milk Of Magnesia 30 Ml Oral.Susp) 30 ml PO DAILY PRN PRN Reason: Constipation Last Admin: 09/09/21 14:33 Dose: 30 ml Documented by: Melatonin (Melatonin 3 Mg Tablet) 9 mg PO BEDTIME [facility] Last Admin: 09/09/21 20:42 Dose: 9 mg Documented by: Nicotine Polacrilex (Nicotine Polacrilex 2 Mg Gum) 2 mg BUCCAL Q1H PRN PRN Reason: Nicotine Cravings Oxcarbazepine (Oxcarbazepine 150 Mg Tablet) 150 mg PO BID [facility] Last Admin: 09/10/21 09:44 Dose: 150 mg Documented by: Propranolol HCl (Propranolol Hcl 10 Mg Tablet) 10 mg PO Q8H PRN; Protocol PRN Reason: anxiety Trazodone HCl (Trazodone Hcl 50 Mg Tablet) 50 mg PO BEDTIME PRN PRN Reason: Insomnia Allergies Allergies Allergy/AdvReac Type Severity Reaction Status Date / Time minocycline [MINOCYCLINE] Allergy Unknown URINATE Verified 07/21/20 08:42 BLOOD Assessment & Plan Assessment & Plan (1) MDD (major depressive disorder), recurrent episode, moderate: Status: Acute Code(s): F33.1 - Major depressive disorder, recurrent, moderate (2) JAYSON (generalized anxiety disorder): Status: Acute Code(s): F41.1 - Generalized anxiety disorder Plan Tim is a 26 y.o. Male who carries a dx of MDD, recurrent and JAYSON. He presented to [facility] on 09/05/21 by ambulance following an overdose on his mom?s gabapentin. Per pt?s mom, he has been depressed since she was diagnosed with metastatic pancreatic cancer in 01/2021 and he has not been coming out of his room. Utox positive for cocaine and cannabis. Has been nonadherent with PO trileptal and propranolol PRN, prescribed PCP. Says trileptal was started in adolescence for angry outbursts, which have calmed down. Plan: Will re-start OP med regimen of trileptal 150 mg BID and propranolol 10 mg PRN. Pt reports the trileptal ?helps with my mood,? ?makes me feel more calm.? Says he uses propranolol out in public i[place]e. out in mall, as he feels anxious and ?it calms me down.??Hx of celexa with good effect. Will start lexapro 10 mg QD for sx of depression, anxiety. Will monitor for activating SE. 09/08: Continue lexapro trial 09/09 Continue current treatment plan 09/10 continue current treatment plan Q15 min safety checks, CV Monitor response to medications. Monitor for safety in the milieu. Discharge on stabilization. Patient seen. Chart reviewed. Discussed with team. Obtain collateral contact info?as needed I spent minutes with the patient and/or on the patient floor today, greater than?50% of which was spent counseling/coordinating care. Reason for contiued inpatient stay Substantial Risk for: harm to self, inability to function and rapid decompensation
[2021-09-10 18:00] VITALS: BP 128/78; PULSE 93; RESP 18; TEMP 36.7; O2SAT 97
[2021-09-10] MEDS: Melatonin 3 MG TABLET 9 MG PO (20:34)
[2021-09-11 08:21] VITALS: PULSE 90; RESP 16; TEMP 36.6; O2SAT 98
[2021-09-11] MEDS: Escitalopram Oxalate 10 MG TABLET PO (09:18)
[2021-09-11] MEDS: OXcarbazepine 150 MG TABLET PO ×2 (09:18→22:53)
--- NOTE | 2021-09-11 15:02 | HO.PSYCHPN ---
Subjective Subjective Date of Service: 09/11/21 Reason For Visit: SI, OD Attempt Interim History: pt found resting in his bed late morning, awake. amenable to discussion. discuss in some detail the events leading up to his hospitalization, his thinking and intent in his behaviors, his current thinking on the situation. states he was angry when he took the extra medication. he did not intend to kill himself, per his description, and said he was not prepared for things to go the way they did. he presented it more as a message to his mother or a means to get her attention. he denies any SI, states his mood is good now. doing well on lexapro, no side effects. per staff, attending groups. anx 07/13. no SI/HI. social, polite, pleasant, brighter. 3-day matures saturday. Mental Status Exam Mental Status Exam Narrative: A&O. In hospital attire, laying down in bed, Makes good eye contact, attentive. No Tics or Tremors. No abnormal involuntary movements. Calm, cooperative, easily engaged. Non-pressured speech, spontaneous with regular rate and rhythm, normal volume and prosody. No prolonged speech latency or dysarthria. Mood is good. affect is flexible. Denies SI. Thoughts are coherent, organized. No known cognitive or memory impairment. Insight/ Judgment fair and adequate. Diagnostics Vital Signs (24Hr): Vital Signs - 24 hr 09/10/21 18:00 09/11/21 08:21 Temperature 98.1 F 97.9 F Pulse Rate 93 90 Respiratory Rate 18 16 Blood Pressure 128/78 Pulse Oximetry 97 98 BMI result Body Mass Index 16.2 Labs Results: 09/05/21 00:05 09/05/21 00:05 Imaging Radiology Impressions: ITS Impressions Chest X-Ray 09/05/21 02:07 IMPRESSION: No acute cardiopulmonary findings. Head CT 09/05/21 09:07 IMPRESSION: No acute intracranial process seen. There is no acute fracture or dislocation in cervical spine. Cervical Spine CT 09/05/21 09:08 IMPRESSION: No acute intracranial process seen. There is no acute fracture or dislocation in cervical spine. Medications Medications Current Medications Acetaminophen (Acetaminophen 325 Mg Tablet) 650 mg PO Q6H PRN PRN Reason: Headache/Pain Mild Scale (1-3) Last Admin: 09/09/21 20:43 Dose: 650 mg Documented by: Al Hydroxide/Mg Hydroxide (Magnesium Hydrox/Alum Hydrox 30 Ml Oral.Susp) 30 ml PO Q6H PRN PRN Reason: Heartburn/Nausea Escitalopram Oxalate (Escitalopram Oxalate 10 Mg Tablet) 10 mg PO DAILY [facility] Last Admin: 09/11/21 09:18 Dose: 10 mg Documented by: Hydroxyzine HCl (Hydroxyzine Hcl 25 Mg Tablet) 25 mg PO Q6H PRN PRN Reason: Anxiety Last Admin: 09/09/21 20:43 Dose: 25 mg Documented by: Magnesium Hydroxide (Milk Of Magnesia 30 Ml Oral.Susp) 30 ml PO DAILY PRN PRN Reason: Constipation Last Admin: 09/09/21 14:33 Dose: 30 ml Documented by: Melatonin (Melatonin 3 Mg Tablet) 9 mg PO BEDTIME [facility] Last Admin: 09/10/21 20:34 Dose: 9 mg Documented by: Nicotine Polacrilex (Nicotine Polacrilex 2 Mg Gum) 2 mg BUCCAL Q1H PRN PRN Reason: Nicotine Cravings Oxcarbazepine (Oxcarbazepine 150 Mg Tablet) 150 mg PO BID [facility] Last Admin: 09/11/21 09:18 Dose: 150 mg Documented by: Propranolol HCl (Propranolol Hcl 10 Mg Tablet) 10 mg PO Q8H PRN; Protocol PRN Reason: anxiety Trazodone HCl (Trazodone Hcl 50 Mg Tablet) 50 mg PO BEDTIME PRN PRN Reason: Insomnia Allergies Allergies Allergy/AdvReac Type Severity Reaction Status Date / Time minocycline [MINOCYCLINE] Allergy Unknown URINATE Verified 07/21/20 08:42 BLOOD Assessment & Plan Assessment & Plan (1) MDD (major depressive disorder), recurrent episode, moderate: Status: Acute Code(s): F33.1 - Major depressive disorder, recurrent, moderate (2) JAYSON (generalized anxiety disorder): Status: Acute Code(s): F41.1 - Generalized anxiety disorder Plan Tim is a 26 y.o. Male who carries a dx of MDD, recurrent and JAYSON. He presented to [facility] on 09/05/21 by ambulance following an overdose on his mom?s gabapentin. Per pt?s mom, he has been depressed since she was diagnosed with metastatic pancreatic cancer in 01/2021 and he has not been coming out of his room. Utox positive for cocaine and cannabis. Has been nonadherent with PO trileptal and propranolol PRN, prescribed PCP. Says trileptal was started in adolescence for angry outbursts, which have calmed down. Plan: Will re-start OP med regimen of trileptal 150 mg BID and propranolol 10 mg PRN. Pt reports the trileptal ?helps with my mood,? ?makes me feel more calm.? Says he uses propranolol out in public i[place]e. out in mall, as he feels anxious and ?it calms me down.??Hx of celexa with good effect. Will start lexapro 10 mg QD for sx of depression, anxiety. Will monitor for activating SE. 09/08: Continue lexapro trial 09/09 Continue current treatment plan 09/10 continue current treatment plan 09/11 as above. discharge saturday. I spent ___35___ minutes with the patient and/or on the patient floor today, greater than?50% of which was spent counseling/coordinating care. Reason for contiued inpatient stay Substantial Risk for: harm to self, inability to function and rapid decompensation
--- NOTE | 2021-09-11 15:29 | MHC.CLN ---
F/U REPORTS THAT EATING WELL. DISLIKES CHOCOLATE ENSURE. THIS AUTO CUSTOMIZE PAINTER NOTIFIED KITCHEN. CONTINUE ENSURE TID TO PROVIDE ADDITIONAL 1050 KCAL, 60 G PROTEIN. FOLLOW INTAKE AND WEIGHTS.
[2021-09-11 18:00] VITALS: BP 120/76; PULSE 88; RESP 16; TEMP 36.8; O2SAT 99
[2021-09-11] MEDS: Melatonin 3 MG TABLET 9 MG PO (22:53)
[2021-09-12 09:13] VITALS: BP 118/55; PULSE 64; RESP 20; TEMP 36.2; O2SAT 99
[2021-09-12] MEDS: Escitalopram Oxalate 10 MG TABLET PO (09:51)
[2021-09-12] MEDS: OXcarbazepine 150 MG TABLET PO ×2 (09:51→21:29)
--- NOTE | 2021-09-12 15:21 | P.PNPSI_ITS ---
Subjective Subjective Date of Service: 09/12/21 Reason For Visit: SI, OD Attempt Interim History: poor sleep due to roommate's snoring. ready for discharge tomorrow. i feel great. plans to have his mother put his meds in a lock box, and she will keep hers in a lockbox, too. discuss discharge procedure and planning, aftercare arrangements, prescriptions. per staff, poor sleep. no complaints. more visible. slept about 5 hours. planning for discharge tomorrow. Mental Status Exam Mental Status Exam Narrative: A&O. In street clothes, up and about on the unit good eye contact, attentive. No Tics or Tremors. No abnormal involuntary movements. Calm, cooperative, easily engaged. Non-pressured speech, spontaneous with regular rate and rhythm, normal volume and prosody. No prolonged speech latency or dysarthria. Mood is i feel great. affect is flexible. no SI expressed. Thoughts are coherent, organized. No known cognitive or memory impairment. Insight/ Judgment fair and adequate. Diagnostics Vital Signs (24Hr): Vital Signs - 24 hr 09/11/21 18:00 09/12/21 09:13 Temperature 98.2 F 97.2 F Pulse Rate 88 64 Respiratory Rate 16 20 Blood Pressure 120/76 118/55 L Pulse Oximetry 99 99 BMI result Body Mass Index 16.2 Labs Results: 09/05/21 00:05 09/05/21 00:05 Imaging Radiology Impressions: ITS Impressions Chest X-Ray 09/05/21 02:07 IMPRESSION: No acute cardiopulmonary findings. Head CT 09/05/21 09:07 IMPRESSION: No acute intracranial process seen. There is no acute fracture or dislocation in cervical spine. Cervical Spine CT 09/05/21 09:08 IMPRESSION: No acute intracranial process seen. There is no acute fracture or dislocation in cervical spine. Medications Medications Current Medications Acetaminophen (Acetaminophen 325 Mg Tablet) 650 mg PO Q6H PRN PRN Reason: Headache/Pain Mild Scale (1-3) Last Admin: 09/09/21 20:43 Dose: 650 mg Documented by: Al Hydroxide/Mg Hydroxide (Magnesium Hydrox/Alum Hydrox 30 Ml Oral.Susp) 30 ml PO Q6H PRN PRN Reason: Heartburn/Nausea Escitalopram Oxalate (Escitalopram Oxalate 10 Mg Tablet) 10 mg PO DAILY [facility] Last Admin: 09/12/21 09:51 Dose: 10 mg Documented by: Hydroxyzine HCl (Hydroxyzine Hcl 25 Mg Tablet) 25 mg PO Q6H PRN PRN Reason: Anxiety Last Admin: 09/09/21 20:43 Dose: 25 mg Documented by: Magnesium Hydroxide (Milk Of Magnesia 30 Ml Oral.Susp) 30 ml PO DAILY PRN PRN Reason: Constipation Last Admin: 09/09/21 14:33 Dose: 30 ml Documented by: Melatonin (Melatonin 3 Mg Tablet) 9 mg PO BEDTIME [facility] Last Admin: 09/11/21 22:53 Dose: 9 mg Documented by: Nicotine Polacrilex (Nicotine Polacrilex 2 Mg Gum) 2 mg BUCCAL Q1H PRN PRN Reason: Nicotine Cravings Oxcarbazepine (Oxcarbazepine 150 Mg Tablet) 150 mg PO BID [facility] Last Admin: 09/12/21 09:51 Dose: 150 mg Documented by: Propranolol HCl (Propranolol Hcl 10 Mg Tablet) 10 mg PO Q8H PRN; Protocol PRN Reason: anxiety Trazodone HCl (Trazodone Hcl 50 Mg Tablet) 50 mg PO BEDTIME PRN PRN Reason: Insomnia Allergies Allergies Allergy/AdvReac Type Severity Reaction Status Date / Time minocycline [MINOCYCLINE] Allergy Unknown URINATE Verified 07/21/20 08:42 BLOOD Assessment & Plan Assessment & Plan (1) MDD (major depressive disorder), recurrent episode, moderate: Status: Acute Code(s): F33.1 - Major depressive disorder, recurrent, moderate (2) JAYSON (generalized anxiety disorder): Status: Acute Code(s): F41.1 - Generalized anxiety disorder Plan Tim is a 26 y.o. Male who carries a dx of MDD, recurrent and JAYSON. He presented to [facility] on 09/05/21 by ambulance following an overdose on his mom?s gabapentin. Per pt?s mom, he has been depressed since she was diagnosed with metastatic pancreatic cancer in 01/2021 and he has not been coming out of his room. Utox positive for cocaine and cannabis. Has been nonadherent with PO trileptal and propranolol PRN, prescribed PCP. Says trileptal was started in adolescence for angry outbursts, which have calmed down. Plan: Will re-start OP med regimen of trileptal 150 mg BID and propranolol 10 mg PRN. Pt reports the trileptal ?helps with my mood,? ?makes me feel more calm.? Says he uses propranolol out in public i[place]e. out in mall, as he feels anxious and ?it calms me down.??Hx of celexa with good effect. Will start lexapro 10 mg QD for sx of depression, anxiety. Will monitor for activating SE. 09/08: Continue lexapro trial 09/09 Continue current treatment plan 09/10 continue current treatment plan 09/11 as above. discharge saturday. 09/12: continue current mgmt. discharge tomorrow. I spent __25____ minutes with the patient and/or on the patient floor today, gr eater than?50% of which was spent counseling/coordinating care. Reason for contiued inpatient stay Substantial Risk for: inability to function and rapid decompensation
[2021-09-12] MEDS: Milk of Magnesia 30 ML ORAL.SUSP PO (17:05)
[2021-09-12 18:00] VITALS: BP 144/78; PULSE 85; RESP 16; TEMP 36.7; O2SAT 97
[2021-09-12] MEDS: Melatonin 3 MG TABLET 9 MG PO (21:29)
[2021-09-12] MEDS: traZODone HCL 50 MG TABLET PO (21:29)
[2021-09-13 09:03] VITALS: BP 121/67; PULSE 89; RESP 16; TEMP 36.6; O2SAT 99
[2021-09-13] MEDS: OXcarbazepine 150 MG TABLET PO (09:47)
[2021-09-13] MEDS: Escitalopram Oxalate 10 MG TABLET PO (09:47)
--- NOTE | 2021-09-13 10:34 | PM.PSYDC ---
DS: Providers Provider Date of Service: 09/13/21 Date of admission: 09/06/21 18:26 Primary care physician: [facility] DS: Diagnosis Discharge Diagnosis (1) MDD (major depressive disorder), recurrent episode, moderate: Status: Acute (2) JAYSON (generalized anxiety disorder): Status: Acute DS: Medications Discharge Medications Home Medications: Home Medications Medication Instructions Recorded Confirmed melatonin 10 mg tablet 10 mg PO BEDTIME PRN 09/06/21 09/06/21 propranolol 10 mg tablet 10 mg PO DAILY PRN 09/06/21 09/06/21 Previous Rx's Medication Instructions Recorded escitalopram oxalate 10 mg tablet 10 mg PO DAILY 30 Days #30 tab 09/13/21 oxcarbazepine 150 mg tablet 150 mg PO BID 30 Days #60 tab 09/13/21 trazodone 50 mg tablet 50 mg PO BEDTIME PRN 30 Days #30 09/13/21 tab Mental Status Exam Mental Status Exam Narrative: A&O. In street clothes, up and about on the unit good eye contact, attentive. No Tics or Tremors. No abnormal involuntary movements. Calm, cooperative, easily engaged. Non-pressured speech, spontaneous with regular rate and rhythm, normal volume and prosody. No prolonged speech latency or dysarthria. Mood is great. relieved. affect is flexible, full range. no SI/HI/AVH. Thoughts are coherent, organized. No known cognitive or memory impairment. Insight/ Judgment fair and adequate. Data Data Completed and Pending Completed studies during hospitalization [Text1]: 09/06/21 09/07/21 09/07/21 16:37 08:50 08:50 Magnesium 2.6 Vitamin B12 163 L Folate 6.1 TSH 0.46 Free T4 1.04 COVID-19 ([facility]) Negative COVID-19 Clin Com See Note Imaging Diagnostic Imaging Impressions Chest X-Ray 09/05/21 02:07 IMPRESSION: No acute cardiopulmonary findings. Head CT 09/05/21 09:07 IMPRESSION: No acute intracranial process seen. There is no acute fracture or dislocation in cervical spine. Cervical Spine CT 09/05/21 09:08 IMPRESSION: No acute intracranial process seen. There is no acute fracture or dislocation in cervical spine. DS: Summary Hospital Course Hospital Course: per 09/07 admission note: Tim is a 26 y.o. Male who carries a dx of MDD, recurrent and JAYSON. He presented to [facility] ED on 09/05/21 by ambulance following an overdose on his mom?s gabapentin. Pt?s mother believes he took 68 pills. He was given PO and IV narcan. Per pt?s mom, he has been depressed since she was diagnosed with metastatic pancreatic cancer in 01/2021 and he has not been coming out of his room. Utox positive for cocaine and cannabis. Denies alcohol use. I evaluated the pt this evening and upon interview he reports he has been non-adherent with his trileptal and propranolol (prescribed by PCP) due to not going to pick them up x a couple weeks. PCP also prescribed remeron but he never took it. Pt identifies the precipitating factor as arguing with his mom but does not remember what about. Per pt, ?I had a lot of anger inside? and he ?got upset? and ?decided to just go for it but didnt think it was gonna go to that extent, I didnt want to end my life like that.? Pt says he feels like he can control anger, ?I know how to calm myself down.? However, has hx of angry outbursts in adolescence, would throw things around, break things. Endorses hypersomnia, mostly sleeps all day, does not want to do anything, stays in his room, ?sleeping hours on end every single day.? Says this is the worst his depression has been, ?I was always the type of kid to always be happy and on the go.? In the past used to go outside, socialize. Works as his mom?s [employer]. Says he has not been attending to self care. Appetite comes and goes.? Past Psychiatric History: -No known hx of suicide attempts, one remote instance of cutting when he was 12 y/o.? -No OP psych services, on waitlist at [facility] Past meds: Celexa (prescribed by PCP, says it helped but stopped taking it after he switched PCPs). Medical Evaluation Reviewed: Yes [facility] Medical History? Conductive hearing loss Social History: -Pt was raised in [facility] and lived there until 2018 when his parents , then he and his Mother moved to [place] [facility]. Has an older brother who is disabled and lives at home. -Pt graduated high school and went to [employer]. Substance History: -Cannabis: daily -Cocaine: onset age [age], Sporadic use 09/08: Patient evaluated today and upon interview he reports it was Marisela hard to get out of bed this morning, however once awake he was able to participate in activities, do whatever i needed to do. Says he is doing alright. [place] nauseous, dizzy after lexapro but this wore off and says this same reaction happened with celexa start. Hasn't needed to use the propranolol, not as anxious here. Denies SI. Mood is good, i've been good. Signed 3 day notice.? 09/11: pt found resting in his bed late morning, awake.? amenable to discussion.? discuss in some detail the events leading up to his hospitalization, his thinking and intent in his behaviors, his current thinking on the situation.? states he was angry when he took the extra medication.? he did not intend to kill himself, per his description, and said he was not prepared for things to go the way they did.? he presented it more as a message to his mother or a means to get her attention.? he denies any SI, states his mood is good now.? doing well on lexapro, no side effects.? per staff, attending groups.? anx 07/13.? no SI/HI.? social, polite, pleasant, brighter.? 3-day matures saturday. 09/12: poor sleep due to roommate's snoring.? ready for discharge tomorrow.? i feel great. ? plans to have his mother put his meds in a lock box, and she will keep hers in a lockbox, too.? discuss discharge procedure and planning, aftercare arrangements, prescriptions.? per staff, poor sleep.? no complaints.? more visible.? slept about 5 hours.? planning for discharge tomorrow. 09/13: feeling well, confident about discharge. denies safety concerns. discharged to home and outpt Tx. Precis: Tim is a 26 y.o. Male who carries a dx of MDD, recurrent and JAYSON. He presented to [facility] ED on 09/05/21 by ambulance following an overdose on his mom?s gabapentin. Per pt?s mom, he has been depressed since she was diagnosed with metastatic pancreatic cancer in 01/2021 and he has not been coming out of his room. Utox positive for cocaine and cannabis. Has been nonadherent with PO trileptal and propranolol PRN, prescribed PCP. Says trileptal was started in adolescence for angry outbursts, which have calmed down. Plan: Will re-start OP med regimen of trileptal 150 mg BID and propranolol 10 mg PRN. Pt reports the trileptal ?helps with my mood,? ?makes me feel more calm.? Says he uses propranolol out in public i.e. out in mall, as he feels anxious and ?it calms me down.??Hx of celexa with good effect. Will start lexapro 10 mg QD for sx of depression, anxiety. Will monitor for activating SE. 09/08: Continue lexapro trial 09/09 Continue current treatment plan 09/10 continue current treatment plan 09/11 as above.? discharge saturday. 09/12: continue current mgmt.? discharge tomorrow. 09/13: uneventful course. gradually more active and visible in the milieu over the course of hospitalization. discharged to home 09/13. Time Spent with Patient Time attestation: Total time spent providing and/or coordinating discharge services: Time spent: Greater than 30 minutes Discharge Plan Discharge Patient Disposition: Home, Self-Care Discharge Diagnosis: Major Depressive Disorder, Recurrent, Moderate Referrals: Roque Rothman (Therapy) [Other] - 09/14/21 1:00 pm (IN OFFICE APPOINTMENT) Fartun Moreno (Psychiatry) [Other] - 10/12/21 9:40 am (Telehealth Appointment -Please check your email the day of your appointment for the zoom link. If you do not receive it, please call the number above. ) Fartun Moreno (Psychiatry) [Other] - 11/08/21 9:00 am (Telehealth Appointment) Marycruz Dawson NP [Nurse Practitioner] - 09/21/21 2:45 pm Discharge Medications: New oxcarbazepine 150 mg Tablet 150 mg PO BID 30 Days Qty: 60 0RF trazodone 50 mg Tablet 50 mg PO BEDTIME PRN (Reason: Insomnia) 30 Days Qty: 30 0RF escitalopram oxalate 10 mg Tablet 10 mg PO DAILY 30 Days Qty: 30 0RF Continued propranolol 10 mg Tablet 10 mg PO DAILY PRN (Reason: Anxiety) 0RF melatonin 10 mg Tablet 10 mg PO BEDTIME PRN (Reason: Sleep) 0RF Discontinued oxcarbazepine [Trileptal] 300 mg Tablet 300 mg PO BID 0RF Discharge Orders: Discharge Order (Routine); Ordered 09/13/21 Ordered By: Alfredito Rodrigues Diet: advance to usual diet Activity on Discharge: As tolerated Stand Alone Forms: Patient Portal Discharge page, Community Support Care Plan Goals: maintain safe and independent living in the outpatient treatment setting Health Concerns: none Plan of Treatment: take medications as prescribed, attend appointments as scheduled Assessment: not at imminent risk of harm to self or others Discharge Date/Time: 09/13/21 12:15
== END 2021-09-13 12:15 | disposition home or self-care (01) | DRG 751 ==
LOC: HO.ED 09-06 15:15 → HO.PADLT16 09-06 18:32
PROVIDERS: Registered Nurse; Admitting Provider Psychiatry & Neurology Psychiatry; Emergency Provider Emergency Medicine Emergency Medical Services; Visit Provider Psychiatry & Neurology Psychiatry
DX: F33.1 Major depressive disorder, recurrent, moderate (principal); R45.851 Suicidal ideations; Z91.14 Patient's other noncompliance with medication regimen; T42.6X2A Poisoning by other antiepileptic and sedative-hypnotic drugs, intentional self-harm, initial encounter; F41.1 Generalized anxiety disorder; F17.210 Nicotine dependence, cigarettes, uncomplicated; Z20.822 Contact with and (suspected) exposure to COVID-19; Z71.6 Tobacco abuse counseling; Z91.52 Personal history of nonsuicidal self-harm; Z79.899 Other long term (current) drug therapy
CPT/HCPCS: 0241U; 36415; 70450; 71045; 72125; 80053; 80143; 80179; 80307; 81003; 82077; 82550; 82607; 82746; 82947; 83605; 83690; 83735; 84100; 84439; 84443; 84484; 85025; 87635; 93005; 96361; 96374; 99285

== ENCOUNTER 2023-04-01 17:46 | Outpatient (REF) | payer MEDICAID, SELFPAY | END 2023-04-01 17:47 | disposition home or self-care (01) | LOC: HO.HHCLNP 17:46 | PROVIDERS: Visit Provider Nurse Practitioner Primary Care | DX: B35.3 Tinea pedis (principal); L08.9 Local infection of the skin and subcutaneous tissue, unspecified; T14.8XXA Other injury of unspecified body region, initial encounter; X58.XXXA Exposure to other specified factors, initial encounter; Y93.9 Activity, unspecified; Y92.9 Unspecified place or not applicable; Y99.9 Unspecified external cause status | CPT/HCPCS: 87070; 87077; 87147; 87186; 87205 ==

== ENCOUNTER 2023-04-10 10:33 | Outpatient (REF) | payer MEDICAID, SELFPAY ==
[2023-04-10 11:09] LABS: MANUAL DIFF FLAG NO
[2023-04-10 11:29] LABS: Basophils Absolute Auto 0.1 X10*3/uL (0.0-0.2); Eosinophils Absolute Auto 0.2 X10*3/uL (0.0-0.4); Eosinophils Percent Auto 3.9 % (0-4); Hemoglobin 13.9 g/dl (14.0-18.0); Imm Gran Abs Auto 0.02 X10*3/uL (0.00-0.03); Imm Gran Pct Auto 0.4 % (0.0-0.4); Lymphocytes Absolute Auto 1.7 X10*3/uL (1.2-4.9); Lymphocytes Percent Auto 32.8 % (20-40); Mean Corpuscular HGB Conc 30.9 g/dl (31.0-36.0); Mean Corpuscular Hemoglobin 27.6 pg (27.0-33.0); Mean Corpuscular Volume 89.3 fL (80.0-98.0); Mean Platelet Volume 9.1 fL (9.4-12.4); Monocytes Absolute Auto 0.4 X10*3/uL (0.1-1.2); Monocytes Percent Auto 8.5 % (2-11); Neutrophils Absolute Auto 2.8 x10*3/uL (2.0-8.3); Neutrophils Percent Auto 53.4 % (45-73); Platelet Count 388 X10*3/uL (160-400); Red Blood Count 5.04 X10*6/uL (4.60-5.80); Red Cell Distribution Width 14.4 % (11.0-16.0); White Blood Count 5.2 X10*3/uL (4.8-10.8)
[2023-04-10 12:16] LABS: Alanine Aminotransferase 13 U/L (0-40); Albumin Level 4.4 g/dL (3.5-5.0); Alkaline Phosphatase 71 U/L (39-117); Anion Gap 9 (12-20); Aspartate Amino Transferase 21 U/L (5-37); Bilirubin Direct 0.2 mg/dL (0.0-0.5); Bilirubin Total 0.5 mg/dL (0.0-1.0); Blood Urea Nitrogen 8 mg/dL (9-16); Calcium 9.4 mg/dL (8.4-10.2); Carbon Dioxide 27 mmol/L (22-29); Chloride 108 mmol/L (96-108); Estimated Glomerular Filt Rate > 60; Glucose Random 80 mg/dL (60-115); Lipase 10 U/L (8-78); Sodium 140 mmol/L (135-145); Total Protein 8.5 g/dL (6.5-8.0)
[2023-04-10 12:17] LABS: HIV AB/AG Nonreactive (Nonreactive); HIV Num 1 0.34 S/CO (0.00-0.99); ~HepC Num1 0.14 S/CO (0.00-0.79); ~Hepatitis C Antibody Nonreactive (Nonreactive)
[2023-04-10 12:22] LABS: Vitamin D 25-OH Total 21.5 ng/mL (>30)
[2023-04-10 13:56] LABS: CT PCR NOT DETECTED (Not Detect.); NG PCR NOT DETECTED (Not Detect.)
[2023-04-11 14:34] LABS: RPR Rapid Plasma Reagin REACTIVE (NON-REACTIVE)
[2023-04-15 06:18] LABS: C.Trachomatis RNA TMA, Rectal NOT DETECTED; N.Gonorrhoeae RNA TMA, Rectal NOT DETECTED
[2023-04-15 12:59] LABS: C. Trachomatis RNA TMA, Throat NOT DETECTED; N. gonorrhoeae RNA TMA, Throat NOT DETECTED
== END 2023-04-10 10:34 | disposition home or self-care (01) ==
LOC: HO.HHCL 10:33
PROVIDERS: Visit Provider Family Medicine
DX: R53.83 Other fatigue (principal); Z80.0 Family history of malignant neoplasm of digestive organs; Z11.3 Encounter for screening for infections with a predominantly sexual mode of transmission
CPT/HCPCS: 0353U; 36415; 80048; 80076; 82306; 83690; 84443; 85025; 86592; 86593; 86803; 87389; 87491; 87591

== ENCOUNTER 2024-06-26 15:30 | Outpatient (REF) | payer MEDICAID, SELFPAY ==
[2024-06-26 16:11] LABS: MANUAL DIFF FLAG NO
[2024-06-26 16:20] LABS: Basophils Absolute Auto 0.1 X10*3/uL (0.0-0.2); Eosinophils Absolute Auto 0.2 X10*3/uL (0.0-0.4); Hematocrit 46.8 % (42.0-52.0); Hemoglobin 14.8 g/dl (14.0-18.0); Imm Gran Abs Auto 0.01 X10*3/uL (0.00-0.03); Imm Gran Pct Auto 0.2 % (0.0-0.4); Lymphocytes Absolute Auto 2.1 X10*3/uL (1.2-4.9); Lymphocytes Percent Auto 42.4 % (20-40); Mean Corpuscular HGB Conc 31.6 g/dl (31.0-36.0); Mean Corpuscular Hemoglobin 29.2 pg (27.0-33.0); Mean Corpuscular Volume 92.5 fL (80.0-98.0); Mean Platelet Volume 9.3 fL (9.4-12.4); Monocytes Absolute Auto 0.6 X10*3/uL (0.1-1.2); Monocytes Percent Auto 12.7 % (2-11); Neutrophils Percent Auto 40.7 % (45-73); Platelet Count 271 X10*3/uL (160-400); Red Blood Count 5.06 X10*6/uL (4.60-5.80); Red Cell Distribution Width 13.6 % (11.0-16.0)
--- OUTSIDE RECORDS SUMMARY | 2024-06-26 16:30 | XMS_ITS | Encounter Summary ---
Author Organization [employer] Address [address] [place] [address] Care Team Providers Care Automotive Leasing Sales Representative Name Role Phone Latoya Torres AMANDA Primary Care Provider [phone] [phone] Encounter Details Date Type Department Care Team (Latest Contact Info) Description 06/10/2024 Travel Social History Tobacco Use Types Packs/Day Years Used Date Smoking Tobacco: Former Cigarettes Passive Smoke Exposure: Never Smokeless Tobacco: Never Depression Answer Date Recorded Patient Health Questionnaire-9 Score 14 05/29/2024 Patient Health Questionnaire-9 Score 14 05/29/2024 Last PHQ-9: Questionnaire Data Not on file 1 07/30/2023 Housing Stability Answer Date Recorded What is your housing situation today? I do not have housing (Staying with others, in a hotel, in a nursing home, living outside on the street, on a beach, in a car, or in a park 05/21/[address] you li ve. Do you have problems with any of the following? Pests such as bugs, ants, or mice 05/21/2024 Food Insecurity Answer Date Recorded Within the past 12 months, y ou worried that your food would run out before you got money to buy more: Sometimes True 2023 Within the past 12 months,th e food you bought just didn't last and you didn't have enough money to get more: Sometimes True 05/21/2024 Transportation Answer Date Recorded In the past 12 months, has l ack of transportation kept you from medical appts, meetings, work or from getting things needed for daily living? No 05/21/2024 Utilities Answer Date Recorded In the past 12 months, has t he electric, gas, oil or water company threatened to shut off services in your home? No 05/21/2024 Depression Answer Date Recorded Patient Health Questionnaire-2 Score 2 05/29/2024 Internet Access Answer Date Recorded Internet Access Q1 Yes 05/21/2024 Internet Access Q2 Not on file 05/21/2024 Sex and Gender Information Value Date Recorded Sex Assigned at Male 04/02/2022 10:14 AM EDT Legal Sex Male 10:14 AM EDT Gender Identity Male 04/02/2022 10:14 AM EDT Sexual Orientation Lesbian or Tracy 04/02/2022 10 :14 AM EDT documented as of this encounter Plan of Treatment Upcoming Encounters Date Type Department Care Team (Late st Contact Info) Description 07/29/2024 3:15 PM EST Office Visit [facility] [address] [place] [address] Latoya Torres CNP [address] [place] [address] documented as of this encounter Visit Diagnoses Not on filedocumented in this encounter Additional Health Concerns Assessment Noted Time PHQ-9 Depression Total Score: 14 024 3:35 PM EST documented as of this encounter Care Teams Automotive Leasing Sales Representative Relationship Specialty Start Date End Date Latoya Torres CNP [address] [place], [place] [phone] PCP - General Family Medicine 05/29/24 documented as of this encounter
--- OUTSIDE RECORDS SUMMARY | 2024-06-26 16:30 | XMS_ITS | Encounter Summary ---
Author Organization [employer] Address [address] [place] [address] Care Team Providers Care Freight Team Associate Name Role Phone Brian Duartearieeliel AMANDA Primary Care Provider [phone] Reason for Visit * Reason Comments Syphilis Encounter Details Date Type Department Care Team ([facility] st Contact Info) Description 06/10/2024 1:00 PM EST Clinical Support [facility] [address] [place] [address] Magan Mckeon, SELINA [address] [place] [address] Syphilis Social History Tobacco Use Types Packs/Day Years [...] with others, in a hotel, in a residential, living outside on the street, on a [...] AM EDT documented as of this encounter Progress Notes * Magan Mckeon, RN - 06/10/2024 1:00 PM EST Pt here for treatment through counseling and testing department. Results from state lab indicate positive for syphilis. RPR 1:2. Pt had partial treatment for late latent syphilis in Apr [address] [place] but did not finish. Per DPH must be treated with Bicillin 2.4 million units x 3 weeks. Pt in agreement with plan. Pt confirmed no allergy to Bicillin. Pt treated by standing order. Pt given 2.4 million units Benzathine penicillin, advised to wait in waiting room for 20 mins after and advise RN of any adverse reaction. Advised patient they may experience side effects such as nausea, vomiting, cramps, diarrhea or headache. Pt advised to: Return to clinic if symptoms persist, worsen, or re-appear two weeks after treatment Return to clinic if patient develops abdominal pain, scrotal pain [if applicable] or oral temperature greater or equal to 101F. Abstain from sex for 14 if syphilis after treatment for self and affected partners Notify sex partner(s) in order to prevent spread of disease If client's last sexual exposure was greater than 60 day before onset of symptoms, refer the most recent sexual partner(s) for examination, testing, and treatment Abstain from sexual intercourse with partner(s) until partner(s) complete treatment Disinfect diaphragm with 70% isopropyl (rubbing) alcohol if this is the client's control. Clean any sex toys and clean and cover shared sex toys in the future. Discussed relationship between STIs and HIV acquisition Repeat HIV testing in the future if ongoing risk factors. Offered condoms. Discussed PrEP. Pt to discuss Apretude at next PCP visit and PrEP navigator will follow up. documented in this encounter Plan of Treatment Upcoming Encounters Date Type Department Care Team (Late st Contact Info) Description 07/29/2024 3:15 PM EST Office Visit [facility] [address] [place] [address] Latoya Torres CNP [address] [place] [address] documented as of this encounter Visit Diagnoses Diagnosis Syphilis Unspecified syphilis documented in this encounter Administered Medications Inactive Administered Medications - up to 3 most recent administrations Medication Order MAR Action Action Date Dose Rate Site Penicillin G Benzathine suspension prefilled syringe 2.4 Million Units 2.4 Million Units, Intramuscular, Once, On Sat06/10/24 at 1330, For 1 doseIndications:Syphilis Given 06/10/2024 1:30 PM EST 2.4 Million Units Other documented in this encounter Additional Health Concerns Assessment Noted Time PHQ-9 Depression Total Score: 14 024 3:35 PM EST documented as of this encounter Care Teams Freight Team Associate Relationship Specialty Start Date End Date Latoya Torres CNP [address] [place] [address] PCP - General Family Medicine 05/29/24 documented as of this encounter
--- OUTSIDE RECORDS SUMMARY | 2024-06-26 16:30 | XMS_ITS | Encounter Summary ---
Author Organization [employer] Address [address] [place] [address] Care Team Providers Care Retina Subspecialist Name Role Phone Latoya Torres AMANDA Primary Care Provider [phone] [phone] Encounter Details Date Type Department Care Team (Latest Contact Info) Description 06/17/2024 Travel Social History Tobacco Use Types Packs/Day [...] with others, in a hotel, in a penitentiary, living outside on the street, on a [...] Description 07/29/2024 3:15 PM EST Office Visit [facility] [address] [place] [address] Latoya Torres CNP [address] [place] [address] documented as of this encounter Visit Diagnoses Not on filedocumented in this encounter Additional Health Concerns Assessment Noted Time PHQ-9 Depression Total Score: 14 024 3:35 PM EST documented as of this encounter Care Teams Retina Subspecialist Relationship Specialty Start Date End Date Latoya Torres CNP [address] [place], [place] [phone] PCP - General Family Medicine 05/29/24 documented as of this encounter
--- OUTSIDE RECORDS SUMMARY | 2024-06-26 16:31 | XMS_ITS | Encounter Summary ---
Author Organization [employer] Address [address] [place] [address] Care Team Providers Care Barrel Bander Name Role Phone Latoya Torres AMANDA Primary Care Provider [phone] [phone] Encounter Details Date Type Department Care Team (Latest Contact Info) Description 06/24/2024 Travel Social History Tobacco Use Types Packs/Day [...] Description 07/29/2024 3:15 PM EST Office Visit [facility] [address] [place] [address] Latoya Torres CNP [address] [place] [address] documented as of this encounter Visit Diagnoses Not on filedocumented in this encounter Additional Health Concerns Assessment Noted Time PHQ-9 Depression Total Score: 14 024 3:35 PM EST documented as of this encounter Care Teams Barrel Bander Relationship Specialty Start Date End Date Latoya Torres CNP [address] [place], [place] [phone] PCP - General Family Medicine 05/29/24 documented as of this encounter
--- OUTSIDE RECORDS SUMMARY | 2024-06-26 16:31 | XMS_ITS | Encounter Summary ---
Author Organization [employer] Address [address]t [place] [address] Care Team Providers Care Water Safety Instructor Name Role Phone Latoya Torres CNP Primary Care Provider [phone] [phone] Reason for Visit * Reason Comments Care Coordination C3 -JOVANNA tucker telephone call outreach Encounter Details Date Type Department Care Team (Latest Contact Info) Description 06/19/2024 Patient Outreach [facility] [address] [place] [address] Latoya Torres CNP [address] [place] [address] Care Coordination (C3 RUDDY Esquivel telephone call outreach) Social History Tobacco Use Types Packs/Day Years [...] with others, in a hotel, in [place] [facility] [place], living outside on the street, on a [...] as of this encounter Progress Notes * Francoise Esquivel - 06/19/2024 12:21 PM EST CHW Francoise Esquivel placed outbound call to patient to follow up on SDOH needs. Patient's name, andaddress confirmed. CHW spoke to patient he got approved for the [employer] program I explained he would have to look for an apartment, chw gave him a couple of places to apply. Patient states is doing well. No further questions or concerns. CHW reinforced direct contact information or CM for any additional questions or concerns and extended clinic hours on Mondays and Wednesdays, and Walk-In Urgent Care Located in [facility] of [facility]. Patient provided with after-hours line for [facility], , which offer night time triage service and option to transfer to inside sales person provider if needed. Patient verbalizes understanding, and able to repeat back to life insurance underwriter. A follow up call willbe placed within 10 days, patient agrees with plan. documented in this encounter Plan of Treatment Upcoming Encounters Date Type Department Care Team ([facility] Contact Info) Description 07/29/2024 3:15 PM EST Office Visit [facility] [address] [place] [address] Latoya Torres CNP [address] [place], [place] [phone] documented as of this encounter Visit Diagnoses Not on filedocumented in this encounter Additional Health Concerns Assessment Noted Time PHQ-9 Depression Total Score: 14 05/29/ 024 3:35 PM EST documented as of this encounter Care Teams Water Safety Instructor Relationship Specialty Start Date End Date Latoya Torres CNP [address] [place] [address] PCP - General Family Medicine 05/29/24 documented as of this encounter
--- OUTSIDE RECORDS SUMMARY | 2024-06-26 16:31 | XMS_ITS | Encounter Summary ---
Author Organization [employer] Address [address] [place] [address] Care Team Providers Care Manager Environmental Health Name Role Phone Brian Duartejaylene PATEL Primary Care Provider [phone] [phone] Reason for Visit * Reason Comments Syphilis Encounter Details Date Type Department Care Team ([facility] st Contact Info) Description 06/24/2024 1:10 PM EST Clinical Support [facility] [address] [place] [address] Magan Mckeon, SELINA [address] [place] [address] Syphilis Social History Tobacco Use Types Packs/Day [...] Progress Notes * Magan Mckeon, RN - 06/24/2024 1:10 PM EST Pt here for treatment through counseling and testing department, Vanceillin #3/3. Results from state lab indicate positive for syphilis. RPR 1:2. 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 Per DPH must [...] Offered condoms. Discussed PrEP. Pt to discuss at next PCP visit and PrEP navigator will follow up. Pt was interested in Apretude but is on Trileptal so need to consider oral options. documented in this encounter Plan of Treatment Upcoming Encounters Date Type Department Care Team (Late st Contact Info) Description 07/29/2024 3:15 PM EST Office Visit [facility] [address] [place] [address] Latoya Torres CNP [address] [place] [address] documented as of this encounter Visit Diagnoses Diagnosis Syphilis Unspecified syphilis documented in this encounter Administered Medications Inactive Administered Medications - up to 3 most recent administrations Medication Order MAR Action Action Date Dose Rate Site Penicillin G Benzathine suspension prefilled syringe 2.4 Million Units 2.4 Million Units, Intramuscular, Once, On Sat06/24/24 at 1345, For 1 doseIndications:Syphilis Given 06/24/2024 1:45 PM EST 2.4 Million Units Other documented in this encounter Additional Health Concerns Assessment Noted Time PHQ-9 Depression Total Score: 14 024 3:35 PM EST documented as of this encounter Care Teams Manager Environmental Health Relationship Specialty Start Date End Date Latoya Torres CNP [address] [place] [address] PCP - General Family Medicine 05/29/24 documented as of this encounter
--- OUTSIDE RECORDS SUMMARY | 2024-06-26 16:31 | XMS_ITS | Encounter Summary ---
Author Organization [employer] Address [address] [place] [address] Care Team Providers Care Screen Room Operator Name Role Phone Latoya Torres AMANDA Primary Care Provider [phone] [phone] Encounter Details Date Type Department Care Team (Latest Contact Info) Description 05/29/2024 Travel Social History Tobacco Use Types Packs/Day [...] with others, in a hotel, in a halfway, living outside on the street, on a [...] Description 07/29/2024 3:15 PM EST Office Visit [facility] [address] [place] [address] Latoya Torres CNP [address] [place] [address] documented as of this encounter Visit Diagnoses Not on filedocumented in this encounter Additional Health Concerns Assessment Noted Time PHQ-9 Depression Total Score: 14 024 3:35 PM EST documented as of this encounter Care Teams Screen Room Operator Relationship Specialty Start Date End Date Latoya Torres CNP [address] [place], [place] [phone] PCP - General Family Medicine 05/29/24 documented as of this encounter
--- OUTSIDE RECORDS SUMMARY | 2024-06-26 16:31 | XMS_ITS | Encounter Summary ---
Author Organization [employer] Address [address] [facility] [address] 7t [place] [address] Care Team Providers Care Shrink Pit Operator Name Role Phone Latoya Torres CNP Primary Care Provider +1 [phone] Reason for Visit * Reason Onset Date Comments Chart Prep 06/16/2024 Encounter Details Date Type Department Care Team ([facility] st Contact Info) Description 06/16/2024 Telephone [facility] MEDICINE [address] [place] [address] Latoya Torres CNP [address] [place] [address] Chart Prep Social History Tobacco Use Types Packs/Day Years [...] with others, in a hotel, in a snf, living outside on the street, on a [...] AM EDT documented as of this encounter Miscellaneous Notes * Telephone Encounter - Colt Bucio [place] - 06/16/2024 1:25 PM EST Chart Prep Labs: done Images: not applicable Vaccines due: No Referrals: pending appt Screenings: None Overdue care gaps: None documented in this encounter Plan of Treatment Upcoming Encounters Date Type Department Care Team (Late st Contact Info) Description 07/29/2024 3:15 PM EST Office Visit [facility] MEDICINE [address] [place] [address] Latoya Torres CNP [address] [place] [address] documented as of this encounter Visit Diagnoses Not on filedocumented in this encounter Additional Health Concerns Assessment Noted Time PHQ-9 Depression Total Score: 14 024 3:35 PM EST documented as of this encounter Care Teams Shrink Pit Operator Relationship Specialty Start Date End Date Latoya Torres CNP [address] [place] [address] PCP - General Family Medicine 05/29/24 documented as of this encounter
--- OUTSIDE RECORDS SUMMARY | 2024-06-26 16:31 | XMS_ITS | Encounter Summary ---
Author Organization [employer] Address [address] [facility] [address] 7[address] [place] [address] Care Team Providers Care Objects Conservator Name Role Phone Latoya Torres AMANDA Primary Care Provider +1 [phone] Encounter Details Date Type Department Care Team (Latest Contact Info) Description 06/26/2024 Travel Social History Tobacco Use Types Packs/Day [...] with others, in a hotel, in a group home, living outside on the street, on [...] Description 07/29/2024 3:15 PM EST Office Visit [facility] MEDICINE [address] [place] [address] Latoya Torres CNP [address] [place] [address] documented as of this encounter Visit Diagnoses Not on filedocumented in this encounter Additional Health Concerns Assessment Noted Time PHQ-9 Depression Total Score: 14 024 3:35 PM EST documented as of this encounter Care Teams Objects Conservator Relationship Specialty Start Date End Date Latoya Torres CNP [address] [place], [place] [phone] PCP - General Family Medicine 05/29/24 documented as of this encounter
--- OUTSIDE RECORDS SUMMARY | 2024-06-26 16:31 | XMS_ITS | Encounter Summary ---
Author Organization [employer] Address [address] [facility] [address] 7[address] [place] [address] Care Team Providers Care Plant And Instrument Engineer Name Role Phone Latoya Torres CNP Primary Care Provider [phone] [phone] Reason for Visit * Reason Onset Date Comments Referral (Audiology) 06/05/2024 Encounter Details Date Type Department Care Team ([facility] Contact Info) Description 06/05/2024 Telephone [facility] MEDICINE [address] [place] [address] Latoya Torres CNP [address] [place] [address] Referral (Audiology) Social History Tobacco Use Types Packs/Day Years [...] encounter Miscellaneous Notes * Telephone Encounter - Ami Cisneros - 06/05/2024 3:23 PM EST Patient is all set. Referral, notes and authorization faxed to [facility]. Patient has a appt on06/10/2024 at 5:00 PM with Adrianne España. Letter mailed to patient. documented in this encounter Plan of Treatment Upcoming Encounters Date Type Department Care Team (Late st Contact Info) Description 07/29/2024 3:15 PM EST Office Visit [facility] MEDICINE [address] [place] [address] Latoya Torres CNP [address] [place] [address] documented as of this encounter Visit Diagnoses Not on filedocumented in this encounter Additional Health Concerns Assessment Noted Time PHQ-9 Depression Total Score: 14 024 3:35 PM EST documented as of this encounter Care Teams Plant And Instrument Engineer Relationship Specialty Start Date End Date Latoya Torres CNP [address] [place] [id number] PCP - General Family Medicine 05/29/24 documented as of this encounter
--- OUTSIDE RECORDS SUMMARY | 2024-06-26 16:31 | XMS_ITS | Encounter Summary ---
Author Organization [employer] [facility] Address [address] [facility] 7t [place] [address] Care Team Providers Care Director Of Extension Work Name Role Phone Latoya Torres CNP Primary Care Provider [phone] [phone] Reason for Referral * Consultation (Routine) - Authorized Specialty Diagnoses / Procedures Referred By Adrian wallace Referred To Contact Optometry Diagnoses Other fatigue Latoya Torres CNP [address] [place] [address] Phone: tel: fax: [facility] OPTOM[facility] [address] [place] [address] Phone: tel: fax: Referral ID Status Reason Start Date Expiration Date Visits Requested Visits Authorized [id number] Authorized Consult and Treat 06/26/2024 06/26/2025 1 1 Reason for Visit * Reason Comments Follow-up Encounter Details Date Type Department Care Team ([facility] st Contact Info) Description 06/26/2024 3:00 PM EST Office Visit [facility] MEDICINE [address] [place] [address] Latoya Torres CNP [address] [place] [address] Encounter for HIV pre-exposure prophylaxis (Primary Dx); Other fatigue; Vapes nicotine containing substance Social History Tobacco Use Types Packs/Day Years [...] AM EDT documented as of this encounter Last Filed Vital Signs Vital Sign Reading Time Taken Comments Blood Pressure 118/72 06/26/2024 3:00 PM EST Pulse 102 06/26/2024 3:00 PM EST Temperature 36.4 ??C (97.6 ??F) 06/26/2024 3:00 PM ES T Respiratory Rate 20 06/26/2024 3:00 PM EST Oxygen Saturation 98% 06/26/2024 3:00 PM EST Inhaled Oxygen Concentration - - Weight 52.4 kg (115 lb 9.6 oz) 06/26/2024 3:00 P M EST Height - - Body Mass Index 17.07 05/29/2024 1:36 PM EST documented in this encounter Progress Notes * Latoya Torres, SLUG PRESS OPERATOR - 06/26/2024 3:00 PM EST Subjective Patient ID: Tim Garcia is a 29 y.o. male who presents for PrEP start. Pt reports he cannot take apretude given he is taking trileptal. He would like to discuss other options. Pt also expressing concern about his recent increase in fatigue. Patient denies fever, chills, myalgias, recent illness or hospitalization. Pt would also like to discuss smoking cessation today. SDSD update: Pt says he has been approved by [employer] for housing, currently looking for apartments. Review of Systems Constitutional: Positive for fatigue. Negative for activity change, appetite change, chills, diaphoresis, fever and unexpected weight change. HENT: Negative. Eyes: Endorses eye twitching Respiratory: Negative. Cardiovascular: Negative. Gastrointestinal: Negative. Endocrine: Negative. Genitourinary: Negative. Musculoskeletal: Negative. Skin: Negative. Neurological: Negative. Hematological: Negative. Psychiatric/Behavioral: Negative. Objective Vitals: 06/26/24 1500 BP: 118/72 Pulse: 102 Resp: 20 Temp: 97.6 ??F (36.4 ??C) SpO2: 98% Physical Exam Constitutional: Appearance: Normal appearance. HENT: Head: Normocephalic and atraumatic. Cardiovascular: Rate and Rhythm: Normal rate and regular rhythm. Pulses: Normal pulses. Heart sounds: Normal heart sounds. No murmur heard. No friction rub. No gallop. Pulmonary: Effort: Pulmonary effort is normal. No respiratory distress. Breath sounds: Normal breath sounds. No stridor. No wheezing or rales. Neurological: General: No focal deficit present. Mental Status: He is alert and oriented to person, place, and time. Psychiatric: Mood and Affect: Mood normal. Behavior: Behavior normal. Assessment/Plan Problem List Items Addressed This Visit Other fatigue Will obtain fatigue workup Bloodwork ordered today Relevant Orders Referral to [facility] Vitamin D, 25-Hydroxy, Total, Immunoassay CBC auto differential Vitamin B12/Folate, Serum Panel TSH W/Reflex to FT4 Encounter for HIV pre-exposure prophylaxis - Primary Discussed oral regimens available that are indicated for patient: Truvada Pt would like to proceed with Truvada Discussed side effects, monitoring, and importance of medication adherence as well as safe sexual practices including condom use. HIV-neg Needs to complete additional bloodwork prior to start including CMP and Hep B, see orders Will send script for prep once labs are resulted today Pt agreeable with plan Relevant Orders Hepatitis B Surface Antibody, Qualitative Hepatitis B Core Antibody, Total Hepatitis B surface antigen, EIA Comprehensive Metabolic Panel Vapes nicotine containing substance Pt would like to start smoking cessation Discussed different methods, pt would like to proceed with nicotine gum Reviewed instructions for use and rx was sent to pharmacy F/u in 1 month Relevant Medications nicotine polacrilex (Nicorette) 4 MG gum documented in this encounter Miscellaneous Notes * Assessment & Plan Note - Latoya Torres CNP - 06/26/2024 3:45 PM EST Associated Problem(s): Vapes nicotine containing substance Pt would like to start smoking cessation Discussed different methods, pt would like to proceed with nicotine gum Reviewed instructions for use and rx was sent to pharmacy F/u in 1 month * Assessment & Plan Note - Latoya Torres CNP - 06/26/2024 3:45 PM EST Associated Problem(s): Encounter for HIV pre-exposure prophylaxis Discussed oral regimens available that are indicated for patient: Truvada Pt would like to proceed with Truvada Discussed side effects, monitoring, and importance of medication adherence as well as safe sexual practices including condom use. HIV-neg Needs to complete additional bloodwork prior to start including CMP and Hep B, see orders Will send script for prep once labs are resulted today Pt agreeable with plan * Assessment & Plan Note - Latoya Torres CNP - 06/26/2024 3:42 PM EST Associated Problem(s): Other fatigue Will obtain fatigue workup Bloodwork ordered today documented in this encounter Plan of Treatment Upcoming Encounters Date Type Department Care Team (Late st Contact Info) Description 07/29/2024 3:15 PM EST Office Visit [facility] MEDICINE [address] [place] [address] Latoya Torres CNP [address] [place] [address] Scheduled Orders Name Type Priority Associated Diagnoses Orde r Schedule Hepatitis B Surface Antibody, Qualitative Lab Routine Encounter for HIV pre-exposure prophylaxis Expected: 06/26/2024 (Approximate), Expires: 06/26/2025 Hepatitis B Core Antibody, Total Lab Routine Encounter for HIV pre-exposure prophylaxis Expected: 06/26/2024 (Approximate), Expires: 06/26/2025 Hepatitis B surface antigen, EIA Lab Routine Encounter for HIV pre-exposure prophylaxis Expected: 06/26/2024 (Approximate), Expires: 06/26/2025 Comprehensive Metabolic Panel Lab Routine Encounter for HIV pre-exposure prophylaxis Expected: 06/26/2024 (Approximate), Expires: 06/26/2025 Vitamin D, 25-Hydroxy, Total, Immunoassay Lab Routine Other fatigue Expected: 06/26/2024 (Approximate), Expires: 06/26/2025 CBC auto differential Lab Routine Other fatigue Expected: 06/26/2024 (Approximate), Expires: 06/26/2025 Vitamin B12/Folate, Serum Panel Lab Routine Other fatigue Expected: 06/26/2024, Expires: 06/26/2025 TSH W/Reflex to FT4 Lab Routine Other fatigue Expected: 06/26/2024 (Approximate), Expires: 06/26/2025 Scheduled Referrals Name Type Priority Associated Diagnoses Orde r Schedule Referral to [facility] Outpatient Referral Routine Other fatigue Expected: 06/26/2024 (Approximate), Expires: 06/26/2025 documented as of this encounter Visit Diagnoses Diagnosis Encounter for HIV pre-exposure prophylaxis- Primary Other fatigue Vapes nicotine containing substance documented in this encounter Additional Health Concerns Assessment Noted Time PHQ-9 Depression Total Score: 14 05/29/ 024 3:35 PM EST documented as of this encounter Care Teams Director Of Extension Work Relationship Specialty Start Date End Date Latoya Torres CNP [address] [place] [address] PCP - General Family Medicine 05/29/24 documented as of this encounter
--- OUTSIDE RECORDS SUMMARY | 2024-06-26 16:31 | XMS_ITS | Encounter Summary ---
Author Organization [employer] Address [address] [facility] [address] [place] [address] Care Team Providers Care Materials Coordinator Name Role Phone Brian Duartejaylene PATEL Primary Care Provider [phone] [phone] Reason for Visit * Reason Comments Syphilis Encounter Details Date Type Department Care Team ([facility] st Contact Info) Description 06/17/2024 1:10 PM EST Clinical Support [facility] MEDICINE [address] [place] [address] Magan Mckeon, SELINA [address] [place] [address] Syphilis Social History Tobacco Use Types Packs/Day [...] with others, in a hotel, in a mcfp, living outside on the street, on a [...] Progress Notes * Magan Mckeon, RN - 06/17/2024 1:10 PM EST Pt here for treatment through counseling and testing department, Bicillin #2/3. Results from state lab indicate positive for syphilis. RPR 1:2. 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 Per [facility] must [...] Description 07/29/2024 3:15 PM EST Office Visit [facility] MEDICINE [address] [place] [address] Latoya Torres CNP [address] [place] [address] documented as of this encounter Visit Diagnoses Diagnosis Syphilis Unspecified syphilis documented in this encounter Administered Medications Inactive Administered Medications - up to 3 most recent administrations Medication Order MAR Action Action Date Dose Rate Site Penicillin G Benzathine suspension prefilled syringe 2.4 Million Units 2.4 Million Units, Intramuscular, Once, On Sat06/17/24 at 1345, For 1 doseIndications:Syphilis Given 06/17/2024 1:45 PM EST 2.4 Million Units Other documented in this encounter Additional Health Concerns Assessment Noted Time PHQ-9 Depression Total Score: 14 024 3:35 PM EST documented as of this encounter Care Teams Materials Coordinator Relationship Specialty Start Date End Date Latoya Torres CNP [address] [place] [address] PCP - General Family Medicine 05/29/24 documented as of this encounter
--- OUTSIDE RECORDS SUMMARY | 2024-06-26 16:31 | XMS_ITS | Encounter Summary ---
Author Organization [employer] Address [address] [facility] [address] [address] 7[address] [place] [address] Care Team Providers Care Lamp Wirer Name Role Phone Latoya Torres CNP Primary Care Provider [phone] [phone] Encounter Details Date Type Department Care Team (Late st Contact Info) Description 06/24/[address] [facility] MEDICINE [address] [place] [address] Latoya Torres CNP [address] [place] [address] Encounter for HIV pre-exposure prophylaxis (Primary Dx) Social History Tobacco Use Types Packs/Day Years [...] with others, in a hotel, in a fdc, living outside on the street, on a [...] Description 07/29/2024 3:15 PM EST Office Visit [facility] MEDICINE [address] [place] [address] Latoya Torres CNP [address] [place] [address] documented as of this encounter Visit Diagnoses Diagnosis Encounter for HIV pre-exposure prophylaxis- Primary documented in this encounter Additional Health Concerns Assessment Noted Time PHQ-9 Depression Total Score: 14 024 3:35 PM EST documented as of this encounter Care Teams Lamp Wirer Relationship Specialty Start Date End Date Latoya Torres CNP [address] [place] [address] PCP - General Family Medicine 05/29/24 documented as of this encounter
--- OUTSIDE RECORDS SUMMARY | 2024-06-26 16:31 | XMS_ITS | Encounter Summary ---
Author Organization [employer] Address [address] [facility] [address] 7t [place] [address] Care Team Providers Care Floor Refinisher Name Role Phone Brian Duartejaylene PATEL Primary Care Provider [phone] [phone] Encounter Details Date Type Department Care Team (Late st Contact Info) Description 06/24/2024 Orders Only [facility] MEDICINE [address] [place] [address] Elena Lin, SELINA [address] [place] [address] On pre-exposure prophylaxis for HIV Social History Tobacco Use Types Packs/Day Years [...] as of this encounter Progress Notes * Elena Lin RN - 06/24/2024 3:44 PM EST error documented in this encounter Plan of Treatment Upcoming Encounters Date Type Department Care Team (Late st Contact Info) Description 07/29/2024 3:15 PM EST Office Visit [facility] MEDICINE [address] [place] [address] Latoya Torres CNP [address] [place] [address] documented as of this encounter Visit Diagnoses Diagnosis On pre-exposure prophylaxis for HIV documented in this encounter Additional Health Concerns Assessment Noted Time PHQ-9 Depression Total Score: 14 024 3:35 PM EST documented as of this encounter Care Teams Floor Refinisher Relationship Specialty Start Date End Date Latoya Torres CNP [address] [place] [address] PCP - General Family Medicine 05/29/24 documented as of this encounter
--- OUTSIDE RECORDS SUMMARY | 2024-06-26 16:31 | XMS_ITS | Encounter Summary ---
Author Organization [employer] Address [address] [place] [address] Care Team Providers Care Java Architect Name Role Phone Latoya Torres CNP Primary Care Provider +1 [phone] Encounter Details Date Type Department Care Team (Late st Contact Info) Description 06/12/2024 Telephone [facility] MEDICINE [address] [place], [place] [phone] Latoya Torres CNP [address] [place] [address] Social History Tobacco Use Types Packs/Day Years [...] with others, in a hotel, in a custodial, living outside on the street, on a [...] Description 07/29/2024 3:15 PM EST Office Visit [facility] MEDICINE [address] [place] [address] Latoya Torres CNP [address] [place] [address] documented as of this encounter Visit Diagnoses Not on filedocumented in this encounter Additional Health Concerns Assessment Noted Time PHQ-9 Depression Total Score: 14 024 3:35 PM EST documented as of this encounter Care Teams Java Architect Relationship Specialty Start Date End Date Latoya Torres CNP [address] [place] [address] PCP - General Family Medicine 05/29/24 documented as of this encounter
--- OUTSIDE RECORDS SUMMARY | 2024-06-26 16:31 | XMS_ITS | Encounter Summary ---
Author Organization [employer] Address [address] [facility] 7t [place] [address] Care Team Providers Care Fund Raiser Name Role Phone Renea Vaughn MD Primary Care Pro vider Latoya Torres CNP Primary Care Provider [phone] [phone] Reason for Visit * Reason Onset Date Comments Nurse Triage 04/09/2023 Family medical h istory of Cancer Encounter Details Date Type Department Care Team ([facility] st Contact Info) Description 04/09/2023 Telephone [facility] MEDICINE [address] [place] [address] Renea Vaughn MD [address] [place] [address] Nurse Triage (Family medical history of Cancer) Social History Tobacco Use Types Packs/Day Years Used Date Smoking Tobacco: Never Passive Smoke Exposure: Never Smokeless Tobacco: Never Depression Answer Date Recorded Patient Health Questionnaire-9 Score 13 04/10/2023 Patient Health Questionnaire-9 Score 13 04/10/2023 Last PHQ-9: Questionnaire Data Not on file 1 06/10/2022 Housing Stability Answer Date Recorded What is your housing situation today? I do not have housing (Staying with others, in a hotel, in a retirement, living outside on the street, on a beach, in a car, or in a park 04/10/[address] you li ve. Do you have problems with any of the following? Not on file 04/10/2023 Food Insecurity Answer Date Recorded Within the past 12 months, y ou worried that your food would run out before you got money to buy more: Never True 04/10/2023 Within the past 12 months,th e food you bought just didn't last and you didn't have enough money to get more: Never True 01/2023 Transportation Answer Date Recorded In the past 12 months, has l ack of transportation kept you from medical appts, meetings, work or from getting things needed for daily living? No 04/10/2023 Depression Answer Date Recorded Patient Health Questionnaire-2 Score 3 04/10/2023 Sex and Gender Information Value Date Recorded Sex Assigned at Male 04/02/2022 10:14 AM EDT Legal Sex Male 10:14 AM EDT Gender Identity Male 04/02/2022 10:14 AM EDT Sexual Orientation Lesbian or Tracy 04/02/2022 10 :14 AM EDT documented as of this encounter Miscellaneous Notes * Telephone Encounter - Patricia Coelho RN - 04/09/2023 2:45 PM EST Called pt. He states that he wants some testing done for Cancer because his Mom from Pancreatic Cancer a year ago. Pt. States that he has been increasingly tired lately and his hair is falling out. Pt. Also states that he has pain under his right rib cage. No pain with deep breaths but, can feel jabbing pains on and off. BM's WNL. Urinating WNL. Pt. Sounds troubled to me. I asked pt. If he has been experiencing Anxiety and He states Yes, I am worried that I may have Cancer and if I do, I want to take care of it before it progresses to stage 4 . I see opening in green team tomorrow am, will book pt. In slot and send a note to [facility] to be available and present at appt. On 04/10/[address] Stark Protocol Used: No Protocol Available (Adult) Protocol-Based Disposition: See in Office or Video Visit Today or Tomorrow- appt. Scheduled for 04/10/[address] Stark- Will send message to [facility] /BE so that clinician is at 9am visit. Video visit not offered Positive Triage Question: * Nursing judgment * All higher-acuity triage questions were negative * Telephone Encounter - Pablo Cisneros - 04/09/2023 2:40 PM EST Symptoms: Hair Loss, Lethargic (Tired), Weight Loss Outcome: Schedule an urgent appointment (within 4 hours) or talk to a nurse or provider soon Reason: Getting worse The caller accepted this outcome documented in this encounter Plan of Treatment Upcoming Encounters Date Type Department Care Team (Late st Contact Info) Description 07/29/2024 3:15 PM EST Office Visit [facility] MEDICINE [address] [place], [place] [phone] Latoya Torres CNP [address] [place], [place] [phone] documented as of this encounter Visit Diagnoses Not on filedocumented in this encounter Care Teams Fund Raiser Relationship Specialty Start Date End Date Renea Vaughn MD [address] [place] [phone] PCP - General Internal Medicine 11/02/22 05/11/24 Latoya Torres CNP [address] [place] [phone] PCP - General Family Medicine 05/29/24 documented as of this encounter
--- OUTSIDE RECORDS SUMMARY | 2024-06-26 16:31 | XMS_ITS | Clinical Summary ---
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 fluconazole (Diflucan) 150 MG tabletIndicati ons:Tinea pedis of both feet Take 1 pill now and repeat in 1 week 2 tablet 023 Active miconazole (Micotin) 2 % powderIndicati ons:Tinea pedis of both feet Apply twice daily to feet 85 g 023 Active escitalopram (Lexapro) 10 MG tabletIndicati ons:Depression with anxiety Take 1 tablet (10 mg) by mouth Once per day. 30 tablet 11 024 2024 Active propranolol (Inderal) 10 MG tabletIndicati ons:Depression with anxiety Take 1 tablet (10 mg) by mouth Once per day. 30 tablet 11 024 2024 Active OXcarbazepine (Trileptal) 150 MG tablet Take 1 tablet (150 mg) by mouth every 12 (twelve) hours. 30 tablet 024 2024 Active nicotine polacrilex (Nicorette) 4 MG gumIndications :Vapes nicotine containing substance Chew 1 each (4 mg) if needed for smoking cessation. First week- use 1 piece every 1-2 hours, do not exceed 24 pieces daily 100 each 11 025 2024 Active escitalopram (Lexapro) 10 MG tablet Take 1 tablet by mouth at bed time. 2023 Discontinued(R eorder (will not trigger notification to Pharmacy)) OXcarbazepine (Trileptal) 150 MG tablet Take 1 tablet by mouth every 12 (twelve) hours. 2023 Discontinued(R eorder (will not trigger notification to Pharmacy)) propranolol (Inderal) 10 MG tablet take 1 tablet by oral route as needed for anxiety 022 2023 Discontinued(R eorder (will not trigger notification to Pharmacy)) traZODone (Desyrel) 50 MG tablet take 1 Tablet by oral route daily at bedtime as needed 2023 Discontinued(T herapy completed) Cabotegravir ER 600 MG/3ML Suspension Extended ReleaseIndicat ions:Encounter for HIV pre-exposure prophylaxis Inject 3 mL into the muscle every 30 (thirty) days. Ventrogluteal 3 mL 1 025 2024 Discontinued(E ntered in error) Hospital, Clinic, or Other Facility Administered Medication Ordered Dose Route Frequency Start Date End Date Status Penicillin G Benzathine suspension prefilled syringe 2.4 Million UnitsIndications:Syphil is 2.4 Million Units IM Once 06/10/2024 06/10/2024 Ended Penicillin G Benzathine suspension prefilled syringe 2.4 Million UnitsIndications:Syphil is 2.4 Million Units IM Once 06/17/2024 06/17/2024 Ended Penicillin G Benzathine suspension prefilled syringe 2.4 Million UnitsIndications:Syphil is 2.4 Million Units IM Once 06/24/2024 06/24/2024 Ended Active Problems Problem Noted Date Diagnosed Date Encounter for HIV pre-exposure prophylaxis 06/26 Assessment & Plan (06/26/2024 3:45 PM EST): Discussed oral regimens available that are indicated [...] are resulted today Pt agreeable with plan Vapes nicotine containing substance 06/26/2024 Assessment & Plan (06/26/2024 3:45 PM EST): Pt would like to start smoking cessation Discussed different methods, pt would like to proceed with nicotine gum Reviewed instructions for use and rx was sent to pharmacy F/u in 1 month Hearing loss of right ear 06/01/2024 Assessment & Plan (06/01/2024 7:05 PM EST): Pt has a hx of hearing aid use but needs audiology reevaluation Urgent referral placed to audiology for evaluation for new hearing aid 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 Smoker unmotivated to quit 06/01/2024 Assessment & Plan (06/01/2024 7:12 PM EST): Pt currently still smoking nicotine vape, no desire to quit at this time Consideration for future smoking cessation, resources discussed. 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 Explained approximally 20%-30% diagnosed with pancriatic cancer there may be a heritable componet but only 7% will have a inheritable genetic mutation. Another 5% will have Family history of pancreatic cancer. -Referral to genetics Assessment & Plan (06/01/2024 7:03 PM EST): Referral placed to genetics, pt reports he started this process before but all testing was never completed. Assessment & Plan (04/10/2023 9:43 AM EST): -Mother at 47, pt denies any risk factors. Explained approximally 20%-30% diagnosed with pancriatic cancer there may be a heritable componet but only 7% will have a inheritable genetic mutation. Another 5% will have Family history of pancreatic cancer. -Referral to genetics Homeless 04/10/2023 Assessment & Plan (06/01/2024 7:03 PM EST): Pt currently staying with friend for the next month Referral placed to social work to help navigate housing resources Assessment & Plan (04/11/2023 9:18 AM EST): Patient with symptoms of anxiety, depression, unresolved grief. Risk for SI, last attempt was in October. Reason for call was to assess symptoms, provide intervention and offer and CM referrals. Homeless situation, unresolved grief and lack of network are exacerbating symptoms. Clinician placed referral with Care Management with urgent status to assist with housing. At this time Tim Garcia meets criteria for Visit Diagnoses: Problem List Items Addressed This Visit Other MDD (major depressive disorder) Anxiety Unresolved grief Homeless Patient ready to address current needs Interested in working on housing issues first. Declined OP referral for individual therapy. Strengths include acknowledgement of the problem, not ready to make change at this time. PLAN: 1. Follow up with [facility]: Not recommended for follow-up 2. Patient goal is to find stable housing 3. Behavioral Recommendations a. Care Management referral b. Incorporate mindfulness techniques and self-care into daily routine Assessment & Plan (04/10/2023 12:33 PM EST): SDOH referral and referral to [facility] done today Depression with anxiety 04/10/2023 Overview (04/10/2023): referred to Behavioral health Had several suicidal ideation/attempt last year in february Referred to [facility] Assessment & Plan (06/01/2024 7:02 PM EST): Pt reports they are happy with current med regimen Taking propanolol, trileptal and lexapro, refills sent Declines additional services at this time Follow up in 3 months Assessment & Plan (04/10/2023 10:15 AM EST): referred to Behavioral health Had several suicidal ideation/attempt last year in february Referred to [facility] Poor dentition 04/10/2023 Overview (04/10/2023): Advise to see dentist today 04/10/2023 Assessment & Plan (04/10/2023 9:46 AM EST): -advised to dentist today 04/10/2023 Encounter for screening exam ination for sexually transmitted disease 04/10/2023 Overview (04/10/2023): Condoms given Assessment & Plan (06/01/2024 7:01 PM EST): Pt denies current sexual activity but reports hx of syphilis treated 6 months-1 year ago, would like to get routine STI/STD screening today Lab orders placed, testing windows explained to patient Advised importance of safe sexual practices Condoms given Assessment & Plan (04/10/2023 9:47 AM EST): Condoms given Unresolved grief 04/10/2023 Assessment & Plan (04/11/2023 9:18 AM EST): Patient with symptoms of anxiety, depression, unresolved grief. Risk for SI, last attempt was in October. Reason for call was to assess symptoms, provide intervention and offer BH and CM referrals. Homeless situation, unresolved grief and lack of network are exacerbating symptoms. Clinician placed referral with Care Management with urgent status to assist with housing. At this time Tim Garcia meets criteria for Visit Diagnoses: Problem List Items Addressed This Visit Other MDD (major depressive disorder) Anxiety Unresolved grief Homeless Patient ready to address current needs Interested in working on housing issues first. Declined OP referral for individual therapy. Strengths include acknowledgement of the problem, not ready to make change at this time. PLAN: 1. Follow up with [facility]: Not recommended for follow-up 2. Patient goal is to find stable housing 3. Behavioral Recommendations a. Care Management referral b. Incorporate mindfulness techniques and self-care into daily routine MDD (major depressive disorder) 08/30/2014 04/10/2023 Assessment & Plan (04/11/2023 9:18 AM EST): Patient with symptoms of anxiety, depression, unresolved grief. Risk for SI, last attempt was in October. Reason for call was to assess symptoms, provide intervention and offer BH and CM referrals. Homeless situation, unresolved grief and lack of network are exacerbating symptoms. Clinician placed referral with Care Management with urgent status to assist with housing. At this time Tim Garcia meets criteria for Visit Diagnoses: Problem List Items Addressed This Visit Other MDD (major depressive disorder) Anxiety Unresolved grief Homeless Patient ready to address current needs Interested in working on housing issues first. Declined OP referral for individual therapy. Strengths include acknowledgement of the problem, not ready to make change at this time. PLAN: 1. Follow up with [facility]: Not recommended for follow-up 2. Patient goal is to find stable housing 3. Behavioral Recommendations a. Care Management referral b. Incorporate mindfulness techniques and self-care into daily routine Sleep disorder 08/30/2014 04/10/2023 Anxiety 01/29/2012 Assessment & Plan (04/11/2023 9:18 AM EST): Patient with symptoms of anxiety, depression, unresolved grief. Risk for SI, last attempt was in October. Reason for call was to assess symptoms, provide intervention and offer BH and CM referrals. Homeless situation, unresolved grief and lack of network are exacerbating symptoms. Clinician placed referral with Care Management with urgent status to assist with housing. At this time Tim Garcia meets criteria for Visit Diagnoses: Problem List Items Addressed This Visit Other MDD (major depressive disorder) Anxiety Unresolved grief Homeless Patient ready to address current needs Interested in working on housing issues first. Declined OP referral for individual therapy. Strengths include acknowledgement of the problem, not ready to make change at this time. PLAN: 1. Follow up with [facility]: Not recommended for follow-up 2. Patient goal is to find stable housing 3. Behavioral Recommendations a. Care Management referral b. Incorporate mindfulness techniques and self-care into daily routine Encounters Date Type Department Care Team Description 06/26/2024 3:00 PM EST Office Visit [address] [address] Latoya Torres CNP Encounter for HIV pre-exposure prophylaxis (Primary Dx); Other fatigue; Vapes nicotine containing substance 06/26/2024 Travel 06/24/2024 1:10 PM EST Clinical Support [address] [address] Magan Mckeon, SELINA Syphilis 06/24/2024 Orders Only [address] [address] Elena Lin RN On pre-exposure prophylaxis for HIV 06/24/2024 Travel 06/24/2024 Orders Only [address] [address] Latoya Torres CNP Encounter for HIV pre-exposure prophylaxis (Primary Dx) 06/19/2024 Patient Outreach [address] [address] Latoya Torres CNP Care Coordination ([address] Francoise Esquivel telephone call outreach) 06/17/2024 1:10 PM EST Clinical Support [address] [address] Magan Mckeon, SELINA Syphilis 06/17/2024 Travel 06/16/[address] [address] Latoya Torres CNP Chart Prep 06/12/[address] [address] Latoya Torres CNP 06/10/2024 1:00 PM EST Clinical Support [address] [address] Magan Mckeon, SELINA Syphilis 06/10/2024 Travel 06/09/2024 Patient Outreach [address] [address] Latyoa Torres CNP Care Coordination ([facility] Francoise Esquivel telephone call outreach) 06/05/[address] [address] Latoya Torres CNP Referral (Audiology) 06/01/[address] [address] Damari Duarte RN 05/29/2024 1:30 PM EST Office Visit [address] [address] Latoya Torres CNP Routine screening for STI (sexually transmitted infection) (Primary Dx); Depression with anxiety; Hearing loss of right ear, unspecified hearing loss type; Homeless; Healthcare maintenance; Dietary counseling; Underweight; Family history of pancreatic cancer; Encounter for screening examination for sexually transmitted disease; Smoker unmotivated to quit 05/29/2024 Travel 05/21/2024 Patient Outreach [address] [address] Francoise Esquivel Care Coordination ([facility] Francoise Esquivel telephone call outreach) 05/21/2024 Patient Outreach [address] [address] Francoise Esquivel Care Coordination ([facility] Francoise Esquivel telephone call outreach) 05/21/2024 Patient Outreach [address] [address] Latoya Torres CNP Pre-visit Planning (SDOH screening positive and Tobacco screening negative) 05/19/[address] [address] Latoya Torres CNP Chart Prep from Last 3 Months Immunizations Name Administration Dates Next Due DTaP 03/10/1997, 7,1996,04/09 HPV, Quadrivalent 05/15/2013,04/23/2012,12/16/19 11 Hep A, ped/adol, 2 dose 12/15/2010,11/15/2009 Hep B, Adolescent or Pediatric 1996,1995,1996 Hib (HbOC) 03/10/1997, 7,1996,04/09 IPV 03/10/1997, 7,1996,04/09 Influenza injectable quadriv alent IIV4 with preservative 05/20/2017,05/15/2016 Influenza live intranasal trivalent 04/23/2012 Influenza, IIV3, injectable 08/25/2010 Influenza, Split (incl. joaquin fied surface antigen) 05/15/2013 Influenza, live, intranasal 04/23/2012 Influenza, seasonal, injecta ble, preservative free 02/07/2011 MMR 01/22/2001,03/10/1997 Meningococcal MCV4P [id number]-135 05/15/2013 Meningococcal MPSV4 07/01/2007 Td (adult), 5 Lf tetanus tox oid, preservative free, adsorbed 08/20/2016 Tdap 07/23/2013,11/15/2009,07/01/2007 Varicella 01/20/2008,07/01/2007 Family History Medical History Relation Name Comments Pancreatic cancer Mother Relation Name Status Comments Mother Social History Tobacco Use Types Packs/Day Years [...] got money to buy more: Sometimes True 12/19/ 2024 Within the past 12 months,th e food [...] or Tracy 04/02/2022 10 :14 AM EDT Last Filed Vital Signs Vital Sign Reading [...] oz) 06/26/2024 3:00 P M EST Height 175.3 cm (5' 9 ) 05/29/2024 1:36 PM EST Body Mass Index 17.07 05/29/2024 1:36 PM EST Plan of Treatment Upcoming Encounters Date Type Department Care Team (Late st Contact Info) Description 07/29/2024 3:15 PM EST Office Visit [facility] [address] [place] [address] Latoya Torres CNP [address] [place] [address] Health Maintenance Due Date Last Done Comments Dental Prophylaxis 1996 Dental X-Ray: Bitewings 1996 Dental X-Ray: Full Mouth 1996 Family Planning (PISQ) 02/03/2011 Dental Oral Exam 10/10/2023 04/10/2023 Depression Monitoring (PHQ-9) 11/27/2024 05/29/2024, 05/29/2024 Influenza Vaccine (#1) 2024 7, 05/15/2016, 05/15/2013, Additional history exists Postponed from 02/02/2024 (Patient Refused) SDOH Screening 05/21/2025 05/21/2024 Alcohol/Substance Use Screening 05/29/2025 05/29/2024 COVID-19 Vaccine ( season) 2025 11/23/2020, 11/02/2020 Postponed from 02/02/2024 (Patient Refused) Depression Screening 05/29/2025 05/29/2024, 05/29/20 24 Tobacco Screening 06/26/2025 06/26/2024 DTaP/Tdap/Td Vaccines (9 - Td or Tdap) 08/20/2026 08/20/2016, 07/23/2013, 11/15/2009, Additional history exists Zoster Vaccines (1 of 2) 02/03/2046 RSV Patients and Patients Aged 60 years or older (1 - 1-dose 75+ series) 02/03/2071 Hepatitis B Vaccines Completed 1996, 1996, 1996 HIB Vaccines Completed 03/10/1997, 08/02, 1996, Additional history exists IPV Vaccines Completed 03/10/1997, 08/02, 1996, Additional history exists Hepatitis A Vaccines Completed 12/15/2010, 11/16/19 10 HPV Vaccines Completed 05/15/2013, 04/04, 12/15/2010 Meningococcal Vaccine Completed 05/15/2013, 008 HIV Screening Completed 06/05/2024, 04/10/2023 Hepatitis C Screening Completed 06/05/2024, 023 Pneumococcal Vaccine: Pediatrics (0 to 5 Years) and At-Risk Patients (6 to 64 Years) Aged Out No longer eligible based on patient's age to complete this topic RSV under 20 months Aged Out No longe r eligible based on patient's age to complete this topic Rotavirus Vaccines Aged Out No longer eligible based on patient's age to complete this topic Procedures Procedure Name Priority Date/Time Associated Diagnosis Comments HIV ANTIBODY/ANTIGEN ([place] DPH) Routine 06/05/2024 HEPATITIS C ANTIBODY ([place] DPH) Routine 06/05/2024 SYPHILIS ABS ([place] DPH) Routine 06/05/2024 COMPREHENSIVE ORAL EVALUATION - NEW OR ESTABLISHED PATIENT Routine 04/10/2023 11:30 AM EST Encounter for dental examination Dental caries Dental calculus Periodontal disease Dental abscess from Last 3 Months or Most Recently Relevant to Health Maintenance Results * (ABNORMAL) Syphilis Antibodies (DPH) (06/05/2024) Syphilis Abs Reactive(A) Borderline, Nonreactive, Weakly Reactive, Inconclusive, Specimen unsatisfactory for evaluation Syphilis RPR Reactive Comment:RPR 1:2 Blood Venous blood specimen / Unknown 06/05/2024 Historical Provider MD LAB BLOOD ORDERABLES Aida l Result * Hepatitis C Antibody ([place] DP) (06/05/2024) Hepatitis C Ab Nonreactive Blood 06/05/2024 [facility] Provider MD LAB BLOOD ORDERABLES Aida l Result * HIV Ab/Ag ([place] DP) (06/05/2024) HIV Ag/Ab Nonreactive Blood 06/05/2024 Historical Provider LAB BLOOD ORDERABLES Aida l Result from Last 3 Months Insurance HSN FULL Care Teams Inspector Paper Products Relationship Specialty Start Date End Date Latoya Torres CNP [address] [place] [address] [phone] PCP - General Family Medicine 05/29/24
--- OUTSIDE RECORDS SUMMARY | 2024-06-26 16:31 | XMS_ITS | Encounter Summary ---
Author Organization [facility] Address [address] [place] [address] Care Team Providers Care Doctor Assistant Name Role Phone Latoya Torres CNP Primary Care Provider [phone] Reason for Referral * Consultation (Routine) - Closed Specialty Diagnoses / Procedures Referred By Adrian wallace Referred To Contact Genetics Diagnoses Family history of pancreatic cancer Latoya Torres CNP [address] [place] [address] Phone: tel: fax: [address] Phone: tel: fax: Referral ID Status Reason Start Date Expiration Date V isits Requested Visits Authorized [id number] Closed Specialty Services Required 06/01/2024 06/01/2025 1 1 * Consultation (Routine) - Pending Review Specialty Diagnoses / Procedures Referred By Adrian wallace Referred To Contact Behavioral Health Diagnoses Homeless Latoya Torres CNP [address] [place] [address] Phone: tel: fax: Referral ID Status Reason Start Date Expiration Date Visits Requested Visits Authorized [id number] Pending Review Specialty Services Required 05/29/2025 1 1 * Consultation (Urgent) - Closed Specialty Diagnoses / Procedures Referred By Adrian wallace Referred To Contact Audiology Diagnoses Hearing loss of right ear, unspecified hearing loss type Latoya Torres CNP [address] [place] [address] Phone: tel: fax: [facility] [place] [address] [place], [place] Phone: tel: fax: Referral ID Status Reason Start Date Expiration Date V isits Requested Visits Authorized [id number] Closed Specialty Services Required 06/05/2024 06/05/2025 6 6 Encounter Details Date Type Department Care Team (Late st Contact Info) Description 05/29/2024 1:30 PM EST Office Visit [facility] [address] [place] [address] Latoya Torres CNP [address] [place] [address] Routine screening for STI (sexually transmitted infection) (Primary Dx); Depression with anxiety; Hearing loss of right ear, unspecified hearing loss type; Homeless; Healthcare maintenance; Dietary counseling; Underweight; Family history of pancreatic cancer; Encounter for screening examination for sexually transmitted disease; Smoker unmotivated to quit Social History Tobacco Use Types Packs/Day Years [...] with others, in a hotel, in a usp, living outside on the street, on a [...] Sign Reading Time Taken Comments Blood Pressure 120/65 05/29/2024 1:36 PM EST Pulse 60 05/29/2024 1:36 PM EST Temperature 36.4 ??C (97.6 ??F) 05/29/2024 1:36 PM ES T Respiratory Rate 18 05/29/2024 1:36 PM EST Oxygen Saturation 98% 05/29/2024 1:36 PM EST Inhaled Oxygen Concentration - - Weight 49.9 kg (110 lb) 05/29/2024 1:36 PM EST Height 175.3 cm (5' 9 ) 05/29/2024 1:36 PM EST Body Mass Index 16.24 05/29/2024 1:36 PM EST documented in this encounter Progress Notes * Latoya Torres CNP - 05/29/2024 1:30 PM EST Subjective: Tim Garcia is a 29 y.o. male who presents to the office for a transfer patient visit. Previous PCP Youssef. Pt denies any recent illness, injury, or hospitalization. Pt declines vaccinations today. Current concerns: Needs new hearing aid Homelessness Patient Active Problem List Diagnosis Attention deficit hyperactivity disorder (ADHD) Basilar migraine Bilateral hearing loss MDD (major depressive disorder) Sleep disorder Other fatigue Family history of pancreatic cancer Homeless Depression with anxiety Poor dentition Encounter for screening examination for sexually transmitted disease Anxiety Unresolved grief Hearing loss of right ear Underweight Dietary counseling No past surgical history on file. Family History Problem Relation Name Age of Onset Pancreatic cancer Mother Social History Living situation: lives with family Employment/Education: works here Diet/exercise: eats 2 meals a day, no particular diet Substance use: -alcohol : occasional alcohol use -tobacco: smoke vape for few years, not ready to quit. Used to smoke 3-4 PPD, started at 19 stoppedabout 2 years ago and is now solely using vape. -opioids: none Sexual activity: not active at this time. Mental health: Patient Health Questionnaire-9 Score: 14 (05/29/2024 3:35 PM) Patient Health Questionnaire-2 Score: 2 (05/29/2024 3:35 PM) Thoughts that you would be better off or hurting yourself in some way: Not at all (05/29/2024 3:35 PM) Allergies Allergen Reactions Minocycline Other reaction(s): Hematuria, Hematuria urinates blood Review of Systems Constitutional: Negative for appetite change, chills, diaphoresis, fatigue and unexpected weight change. Eyes: Negative for visual disturbance. Respiratory: Negative for chest tightness and shortness of breath. Cardiovascular: Negative for chest pain and palpitations. Gastrointestinal: Negative for abdominal pain, constipation, diarrhea, nausea and vomiting. Neurological: Negative for dizziness, syncope, weakness, light-headedness and headaches. Psychiatric/Behavioral: Negative for agitation, behavioral problems, confusion, dysphoric mood, hallucinations, self-injury, sleep disturbance and suicidal ideas. The patient is not nervous/anxious. Vitals: 05/29/24 1336 BP: 120/65 BP Location: Left arm Patient Position: Sitting BP Cuff Size: Adult Pulse: 60 Resp: 18 Temp: 97.6 ??F (36.4 ??C) TempSrc: Oral SpO2: 98% Weight: 110 lb (49.9 kg) Height: 5' 9 (1.753 m) Physical Exam Constitutional: Comments: Pt is underweight HENT: Head: Normocephalic and atraumatic. Right Ear: Tympanic membrane and ear canal normal. There is no impacted cerumen. Left Ear: Tympanic membrane and ear canal normal. There is no impacted cerumen. Ears: Comments: Normally has hearing aid in R ear, device not in place at this time. Nose: Nose normal. Mouth/Throat: Mouth: Mucous membranes are moist. Pharynx: Oropharynx is clear. Eyes: Extraocular Movements: Extraocular movements intact. Conjunctiva/sclera: Conjunctivae normal. Pupils: Pupils are equal, round, and reactive to light. Cardiovascular: Rate and Rhythm: Normal rate and regular rhythm. Pulses: Normal pulses. Heart sounds: Normal heart sounds. Pulmonary: Effort: Pulmonary effort is normal. Breath sounds: Normal breath sounds. Musculoskeletal: Cervical back: Normal range of motion and neck supple. No tenderness. Lymphadenopathy: Cervical: No cervical adenopathy. Skin: General: Skin is warm and dry. Neurological: General: No focal deficit present. Mental Status: He is alert and oriented to person, place, and time. Cranial Nerves: No cranial nerve deficit. Motor: No weakness. Gait: Gait normal. Psychiatric: Mood and Affect: Mood normal. Thought Content: Thought content normal. Judgment: Judgment normal. Routine Screening and Health Maintenance Optometry: N/A Dental: Yes [facility], getting tooth extracted July 2024 Lab Review: BMP, CBC, Hepatic function Panel, Routine STD/STI screening ordered today per patient'srequest. Problem List Items Addressed This Visit Family history of pancreatic cancer Overview -Mother at 47, pt denies any risk factors. Explained approximally 20%-30% diagnosed with pancriatic cancer there may be a heritable componet but only 7% will have a inheritable genetic mutation. Another 5% will have Family history of pancreatic cancer. -Referral to genetics Current Assessment & Plan Referral placed to genetics, pt reports he started this process before but all testing was never completed. Relevant Orders Referral to Genetics Homeless Current Assessment & Plan Pt currently staying with friend for the next month Referral placed to social work to help navigate housing resources Relevant Orders Referral to Social Work Depression with anxiety Overview referred to Behavioral health Had several suicidal ideation/attempt last year in february Referred to [facility] Current Assessment & Plan Pt reports they are happy with current med regimen Taking propanolol, trileptal and lexapro, refills sent Declines additional services at this time Follow up in 3 months Relevant Medications escitalopram (Lexapro) 10 MG tablet propranolol (Inderal) 10 MG tablet Encounter for screening examination for sexually transmitted disease - Primary Overview Condoms given Current Assessment & Plan Pt denies current sexual activity but reports hx of syphilis treated 6 months-1 year ago, would like to get routine STI/STD screening today Lab orders placed, testing windows explained to patient Advised importance of safe sexual practices Condoms given Hearing loss of right ear Current Assessment & Plan Pt has a hx of hearing aid use but needs audiology reevaluation Urgent referral placed to audiology for evaluation for new hearing aid 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 I, Troy Soto MD, have reviewed the resident's note and agree with the assessment & plan of care as documented above. documented in this encounter Miscellaneous Notes * Assessment & Plan Note - Latoya Torres CNP - 06/01/2024 7:12 PM EST Associated Problem(s): Smoker unmotivated to quit Pt currently still smoking nicotine vape, no desire to quit at this time Consideration for future smoking cessation, resources discussed. * Assessment & Plan Note - Latoya Torres CNP - 06/01/2024 7:09 PM EST Associated Problem(s): Dietary counseling Pt is underweight Pt reports he eats two meals per day with a snack in the middle of the day Encouraged inclusion of protein based foods and heathy fats in diet such as peanut butter and nuts to promote healthy weight gain and maintenance. 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 * Assessment & Plan Note - Latoya Torres CNP - 06/01/2024 7:03 PM EST Associated Problem(s): Homeless Pt currently staying with friend for the next month Referral placed to social work to help navigate housing resources * Assessment & Plan Note - Latoya Torres CNP - 06/01/2024 7:02 PM EST Associated Problem(s): Depression with anxiety Pt reports they are happy with current med regimen Taking propanolol, trileptal and lexapro, refills sent Declines additional services at this time Follow up in 3 months * Assessment & Plan Note - Latoya Torres CNP - 06/01/2024 7:01 PM EST Associated Problem(s): Encounter for screening examination for sexually transmitted disease Pt denies current sexual activity but reports hx of syphilis treated 6 months-1 year ago, would like to get routine STI/STD screening today Lab orders placed, testing windows explained to patient Advised importance of safe sexual practices Condoms given documented in this encounter Plan of Treatment Upcoming Encounters Date Type Department Care Team (Nika isaac Contact Info) Description 07/29/2024 3:15 PM EST Office Visit [facility] [address] [place] [address] Latoya Torres, AMANDA [address] [place] [address] Scheduled Orders Name Type Priority Associated Diagnoses Orde r Schedule Hepatitis C Antibody with Reflex to HCV, RNA, Quantitative, Real-Time PCR Lab Routine Routine screening for STI (sexually transmitted infection) Expected: 05/29/2024, Expires: 05/29/2025 RPR (Monitor) with Reflex to??Titer Lab Routine Routine screening for STI (sexually transmitted infection) Expected: 05/29/2024, Expires: 05/29/2025 HIV-1/2 Antigen and Antibodies, Fourth Generation, with Reflexes Lab Routine Routine screening for STI (sexually transmitted infection) Expected: 05/29/2024 (Approximate), Expires: 05/29/2025 Hepatic Function Panel Lab Routine Healthcare maintenance Expected: 05/29/2024 (Approximate), Expires: 05/29/2025 CBC auto differential Lab Routine Healthcare maintenance Expected: 05/29/2024 (Approximate), Expires: 05/29/2025 Basic Metabolic Panel Lab Routine Healthcare maintenance Expected: 05/29/2024 (Approximate), Expires: 05/29/2025 Scheduled Referrals Name Type Priority Associated Diagnoses Orde r Schedule Referral to Audiology Outpatient Referral Urgent Hearing loss of right ear, unspecified hearing loss type Expected: 05/29/2024 (Approximate), Expires: 05/29/2025 Referral to Social Work Outpatient Referral Routine Homeless Expected: 05/29/2024 (Approximate), Expires: 05/29/2025 Referral to Genetics Outpatient Referral Routine Family history of pancreatic cancer Expected: 06/01/2024 (Approximate), Expires: 06/01/2025 documented as of this encounter Visit Diagnoses Diagnosis Routine screening for STI (sexually transmitted infection)- Primary Screening examination for venereal disease Depression with anxiety Dysthymic disorder Hearing loss of right ear, unspecified hearing loss type Homeless Lack of housing Healthcare maintenance Dietary counseling Dietary surveillance and counseling Underweight Family history of pancreatic cancer Family history of malignant neoplasm of gastrointestinal tract Encounter for screening examination for sexually transmitted disease Smoker unmotivated to quit documented in this encounter Additional Health Concerns Assessment Noted Time PHQ-9 Depression Total Score: 14 024 3:35 PM EST documented as of this encounter Care Teams Doctor Assistant Relationship Specialty Start Date End Date Latoya Torres CNP [address] [place] [id number] PCP - General Family Medicine 05/29/24 documented as of this encounter
--- OUTSIDE RECORDS SUMMARY | 2024-06-26 16:31 | XMS_ITS | Encounter Summary ---
Author Organization [employer] Address [address] [facility] [address] [place] [address] Care Team Providers Care Board Hammer Operator Name Role Phone Latoya Torres CNP Primary Care Provider [phone] Reason for Visit * Reason Comments Care Coordination C3 -JOVANNA tucker telephone call outreach Encounter Details Date Type Department Care Team (Latest Contact Info) Description 06/09/2024 Patient Outreach [facility] [address] [place] [address] Latoya Torres CNP [address] [place] [address] Care Coordination (C3 RUDDY Esquivel telephone call [...] with others, in a hotel, in a skilled nursing, living outside on the street, on a [...] encounter Progress Notes * Francoise Esquivel - 06/09/2024 10:39 AM EST CHW Francoise Esquivel placed outbound call to patient to follow up on SDOH needs. Patient's name, andaddress confirmed. CHW spoke to patient he is still looking for an apartment. CHW will provide him with apartment applications. Patient states is doing well. No further questions or concerns. CHW reinforced direct contact information or CM for any additional questions or concerns and extended clinic hours on Mondays and Wednesdays, and Walk-In Urgent Care Located in [facility]. Patient provided with after-hours line for [facility], , which offer night time triage service and option to transfer to consulting property manager provider if needed. Patient verbalizes understanding, and able to repeat back to data analyst report writer. A follow up call willbe placed within 10 days, patient agrees with plan. documented in this encounter Plan of Treatment Upcoming Encounters Date Type Department Care Team ([facility] Contact Info) Description 07/29/2024 3:15 PM EST Office Visit [facility] [address] [place] [address] Latoya Torres CNP [address] [place] [address] documented as of this encounter Visit Diagnoses Not on filedocumented in this encounter Additional Health Concerns Assessment Noted Time PHQ-9 Depression Total Score: 14 024 3:35 PM EST documented as of this encounter Care Teams Board Hammer Operator Relationship Specialty Start Date End Date Latoya Torres CNP [address] [place] [address] PCP - General Family Medicine 05/29/24 documented as of this encounter
--- OUTSIDE RECORDS SUMMARY | 2024-06-26 16:31 | XMS_ITS | Encounter Summary ---
Author Organization [employer] Address [address] [facility] [address] [place] [address] Care Team Providers Care Western Felt Hat Blocker Name Role Phone Brian Duartejaylene PATEL Primary Care Provider [phone] Encounter Details Date Type Department Care Team (Late st Contact Info) Description 06/01/2024 Refill [facility] [address] [place], [place] [id number] Damari Duarte RN Social History Tobacco Use Types Packs/Day Years [...] t he electric, gas, oil or water Need Fixed threatened to shut off services in your [...] encounter Miscellaneous Notes * Telephone Encounter - Damari Duarte RN - 06/01/2024 10:43 AM EST Tc to pt regarding message sent on portal Marc Klein I forgot to mention that I also needed my trileptal refilled due to me having seizures and it helps with my mood swings. I do apologize for forgetting about that . Pt reports they forgot to ask and this medication helps with seizures and their mood swings. Pt advised we'll send request over to the provider for review and will call back with updates. Pt verbalized understanding and medication pended to provider for review. documented in this encounter Plan of Treatment Upcoming Encounters Date Type Department Care Team (Late st Contact Info) Description 07/29/2024 3:15 PM EST Office Visit [facility] MEDICINE [address] [place] [address] Latoya Torres CNP [address] [place] [address] documented as of this encounter Visit Diagnoses Not on filedocumented in this encounter Additional Health Concerns Assessment Noted Time PHQ-9 Depression Total Score: 14 024 3:35 PM EST documented as of this encounter Care Teams Western F[employer] Hat Blocker Relationship Specialty Start Date End Date Latoya Torres CNP [address] [place] [address] PCP - General Family Medicine 05/29/24 documented as of this encounter
[2024-06-26 17:19] LABS: Folate 7.7 ng/mL (> or = 4.0); Vitamin B12 417 pg/mL (200-900)
[2024-06-26 19:17] LABS: Glucose Random 57 mg/dL (60-115)
[2024-06-26 19:19] LABS: Alanine Aminotransferase 21 U/L (0-40); Albumin Level 4.3 g/dL (3.5-5.0); Alkaline Phosphatase 104 U/L (39-117); Anion Gap 12 (12-20); Aspartate Amino Transferase 34 U/L (5-37); Bilirubin Direct 0.2 mg/dL (0.0-0.5); Bilirubin Total 0.6 mg/dL (0.0-1.0); Blood Urea Nitrogen 7 mg/dL (9-16); Calcium 8.9 mg/dL (8.4-10.2); Carbon Dioxide 28 mmol/L (22-29); Chloride 106 mmol/L (96-108); Estimated Glomerular Filt Rate > 60; Potassium 4.9 mmol/L (3.3-5.1); Sodium 141 mmol/L (135-145); TSH reflex Free T4 0.82 uIU/mL (0.32-4.0); Total Protein 7.7 g/dL (6.5-8.0); Vitamin D 25-OH Total 12.4 ng/mL (>30)
[2024-06-27 08:09] LABS: HBS Num1 0.71 mIU/mL (0-7.99); HBc Num1 0.05 S/CO (0.00-0.79); HBsAGNum1 0.34 S/CO (0.00-0.99); HIV AB/AG Nonreactive (Nonreactive); HIV Num 1 0.05 S/CO (0.00-0.99); Hepatitis B Core Antibody Nonreactive (Nonreactive); Hepatitis B Surface Antigen Negative (Negative); ~Hepatitis B Surface Antibody NONREACTIVE (Nonreactive); ~Hepatitis C Antibody Nonreactive (Nonreactive)
[2024-06-29 12:34] LABS: RPR Rapid Plasma Reagin REACTIVE (NON-REACTIVE)
== END 2024-06-26 15:31 | disposition home or self-care (01) ==
LOC: HO.HHCL 15:30
DX: Z00.00 Encounter for general adult medical examination without abnormal findings (principal); Z11.3 Encounter for screening for infections with a predominantly sexual mode of transmission; Z29.81 Encounter for HIV pre-exposure prophylaxis; R53.83 Other fatigue
CPT/HCPCS: 36415; 80053; 82248; 82306; 82607; 82746; 84443; 85025; 86592; 86593; 86704; 86706; 86803; 87340; 87389

== ENCOUNTER 2024-09-17 06:29 | Emergency (ER) | payer MEDICAID, SELFPAY ==
--- NOTE | ~2024-09-17 | CT_ITS ---
EXAMINATION: CT ABDOMEN PELVIS WITHOUT IV CONTRAST HISTORY: R flank pain COMPARISON: Comparison is made with the prior examination dated 07/21/2020. TECHNIQUE: CT scan of the abdomen and pelvis was performed without contrast using standard departmental protocol. Coronal and sagittal reformatted images were generated and reviewed. Oral contrast material was not administered per department protocol. This CT exam was performed with one or more of the following dose reduction techniques: automated exposure control, adjustment of the mA and/or kV according to patient size, use of iterative reconstruction technique. DLP: 209 mGy-cm FINDINGS: LOWER CHEST: The visualized lung bases are clear. There is no pleural effusion. CARDIOVASCULATURE: The heart is normal in size. There is no pericardial effusion. LIVER: The liver is normal in size and contour. The liver has an unremarkable unenhanced appearance. GALLBLADDER / BILE DUCTS: The gallbladder is unremarkable. There is no intra or extrahepatic biliary ductal dilatation. SPLEEN: The spleen is normal in size and has an unremarkable unenhanced appearance. PANCREAS: The pancreas has an unremarkable unenhanced appearance. ADRENAL GLANDS: Unremarkable. KIDNEYS/RETROPERITONEUM: There are multiple tiny 1-2 mm nonobstructing calculi at the upper and lower poles of both kidneys. There is no hydronephrosis or hydroureter. No ureteral calculi are identified. LYMPH NODES: No retroperitoneal lymphadenopathy is identified in the abdomen or pelvis. VASCULATURE: The abdominal aorta is normal in caliber. MESENTERY/PERITONEUM: No free fluid. No masses. There is no free intraperitoneal gas. STOMACH: The stomach is collapsed, limiting evaluation. SMALL BOWEL: The small bowel is normal in caliber. COLON: The colon is unremarkable. APPENDIX: Normal. URINARY BLADDER/PELVIC ORGANS: The urinary bladder is collapsed, limiting evaluation. The prostate is normal in size. BONES / SOFT TISSUES: No suspicious bony or soft tissue abnormalities. CT/CT abdomen pelvis wo IV con IMPRESSION: Bilateral nephrolithiasis as described, without evidence of ureteral obstruction. Electronically signed by: Alfonso Acosta MD 09/17/2024 08:17 AM EDT
[2024-09-17 06:32] VITALS: BP 136/92; PULSE 94; O2SAT 98
[2024-09-17 06:35] VITALS: BP 120/81; PULSE 95; RESP 16; TEMP 36.8; O2SAT 97; BMI 15.9
--- NOTE | 2024-09-17 06:49 | ED.ABDPAIN ---
HPI - Abdominal Pain General Chief Complaint: Abdominal Pain Stated Complaint: ABDOMINAL PAIN Time Seen by Provider: 09/17/24 06:46 Source: patient and old records reviewed Mode of arrival: ambulatory Limitations: no limitations History of Present Illness ED Provider: ROSENDA JI narrative: 29 yo male with hearing loss here with c/o 3 days of persistent R flank and abdominal pain but no GI or symptoms. He is very anxious as his family has stomach cancer and pancreatic cancer. No fevers or weight loss reported. Nothing makes it worse, no rash. It is dull and constant - no abdominal trauma reported. MD elicited complaint: abdominal pain and flank pain Pertinent past history: none Onset (ago): day(s) (3) Pain Consistency: constant Location: R flank Severity: moderate Quality: aching Radiation: none Migration to: no migration Exacerbating factors: nothing Relieving factors: nothing Associated symptoms: denies other symptoms Related Data Home Medications ?Medication ?Instructions ?Recorded ?Confirmed melatonin 10 mg tablet 10 mg PO BEDTIME PRN Sleep 09/06/21 09/06/21 propranolol 10 mg tablet 10 mg PO DAILY PRN Anxiety 09/06/21 09/06/21 Previous Rx's ?Medication ?Instructions ?Recorded escitalopram oxalate 10 mg tablet 10 mg PO DAILY 30 days #30 tabs 09/13/21 oxcarbazepine 150 mg tablet 150 mg PO BID 30 days #60 tabs 09/13/21 trazodone 50 mg tablet 50 mg PO BEDTIME PRN Insomnia 30 09/13/21 days #30 tabs Allergies Allergy/AdvReac Type Severity Reaction Status Date / Time minocycline [MINOCYCLINE] Allergy Unknown URINATE Verified 09/17/24 06:38 BLOOD Review of Systems Review of Systems Constitutional : No Weight loss, No Fever, No Chills ENT/Mouth : No sore throat, No Rhinorrhea Eyes: No Swelling, No Redness Cardiovascular : No Chest Pain, No SOB, NoEdema Respiratory : No Cough, No Sputum, No Wheezing Gastrointestinal : no Nausea, no Vomiting, no Diarrhea, positive abdominal Pain, No Hematochezia, No Melena Genitourinary : No Dysuria, No Urinary Frequency, No Hematuria, No Urgency Musculoskeletal : No joint pain, No Myalgias, No Joint Swelling Skin : No Skin Lesions, No rash Neuro : No Weakness, No Numbness, No Dizziness, No Headache Psych : No Anxiety/Panic, No Depression All other systems reviewed and are negative. [facility] Past Medical History Attestation statement: The following information was validated with the patient. Source: old records reviewed Medical History Conductive hearing loss Social History Social History Household Members: Family Household Members Other:: lives with mom, stepdad and brother Housing: Apartment Do you presently have visiting nurse or other home services: No Patient Tobacco Use Status: Current someday Tobacco user Tobacco use type: Cigarette Substance Use Type: Crack/Cocaine and Marijuana Advance Directives: No Advance Directives Information Provided: Yes Do you have a plan to hurt others: No Plan service: No Sexual orientation: Don't Know Physical Exam ED Vital Signs: Vital Signs - 24 hr 09/17/24 06:35 Temperature 98.2 F Pulse Rate 95 Respiratory Rate 16 Blood Pressure 120/81 Pulse Oximetry 97 Oxygen Delivery Method Room Air BMI result Body Mass Index 15.9 Appearance: Alert. Oriented X3. No acute distress. Eyes: Pupils equal, round and reactive to light. ENT: Pharynx normal. Neck: Normal inspection. Neck supple. CVS: Normal heart rate and rhythm. Pulses normal. Respiratory: No respiratory distress. Breath sounds normal. Abdomen: Soft and mild R mid abdomen ttp no rebound or guarding Skin: Skin warm and dry. Normal skin color. Normal skin turgor. Extremities: No lower extremity edema. No calf ttp Neuro: Oriented X 3. No motor deficit. No sensory deficit. CN2-12 intact Course Course Course Narrative: cannot give urine has no urinary symptoms he has been here 3 hours we have asked mutiple times he is drinking water at this time stable for DC Medical Decision Making Medical Decision Making [facility] Narrative: 29 yo male with hearing loss here with c/o R flank pain but no associated GI or symptoms no weight loss or fevers at this time will obtain labs, UA and CT scan for renal colic. He is not vomiting and not having fevers he otherwise looks not toxic. Differential Diagnosis Differential Diagnoses: The differential diagnosis associated with the presentation includes stone, MSK pain, constipation Admission/Observation Consideration of admission/observation: Escalation of care including admission/observation considered labs and CT scan reassuring stable for DC Lab Data [facility] Lab Attestation statement: I reviewed the patient's lab results. 09/17/24 06:48 09/17/24 06:48 Labs: Lab Results 09/17/24 Range/Units 06:48 WBC 7.9 (4.8-10.8) X10*3/uL RBC 5.30 (4.60-5.80) X10*6/uL Hgb 16.0 (14.0-18.0) g/dl Hct 47.9 (42.0-52.0) % MCV 90.4 (80.0-98.0) fL MCH 30.2 (27.0-33.0) pg MCHC 33.4 (31.0-36.0) g/dl RDW 13.2 (11.0-16.0) % Plt Count 257 (160-400) X10*3/uL MPV 8.8 L (9.4-12.4) fL Immature Gran % (Auto) 0.3 (0.0-0.4) % Neut % (Auto) 42.8 L (45-73) % Lymph % (Auto) 44.7 H (20-40) % [place] % (Auto) 10.4 (2-11) % Eos % (Auto) 0.8 (0-4) % Baso % (Auto) 1.0 (0-2) % Lymph # (Auto) 3.5 (1.2-4.9) X10*3/uL [place] # (Auto) 0.8 (0.1-1.2) X10*3/uL Eos # (Auto) 0.1 (0.0-0.4) X10*3/uL Baso # (Auto) 0.1 (0.0-0.2) X10*3/uL Abs Immat Gran (auto) 0.02 (0.00-0.03) X10*3/uL Absolute Neuts (auto) 3.4 (2.0-8.3) x10*3/uL Absolute Nucleated RBC 0.000 (0.0-0.012) X10*3/uL Nucleated RBC % (auto) 0.0 (0.0-0.2) /100WBC Sodium 141 (135-145) mmol/L Potassium 3.7 D (3.3-5.1) mmol/L Chloride 109 H (96-108) mmol/L Carbon Dioxide 22 (22-29) mmol/L Anion Gap 14 (12-20) BUN 8 L (9-16) mg/dL Creatinine 0.86 (0.5-1.4) mg/dL Estim Creat Clear Calc 95.9 Estimated GFR > 60 Random Glucose 86 (60-115) mg/dL Calcium 9.3 (8.4-10.2) mg/dL Total Bilirubin 1.1 H (0.0-1.0) mg/dL AST 36 (5-37) U/L ALT 34 (0-40) U/L Alkaline Phosphatase 78 (39-117) U/L Total Protein 7.5 (6.5-8.0) g/dL Albumin 4.7 (3.5-5.0) g/dL Lipase 14 (8-78) U/L Independent Interpretation I performed an independent interpretation of an: CT Scan (bilateral kidney stones) Radiology Impression Discussion of test interpretation with radiology: I have reviewed the radiologist's reading. External Record Review External record reviewed: Outpatient record Prescription Management I considered prescription management with: Other Discharge Plan Discharge Clinical Impression: Abdominal pain Qualifiers: Abdominal location: upper abdomen, unspecified Qualified Code(s): R10.10 - Upper abdominal pain, unspecified Patient Disposition: Home, Self-Care Instructions: Abdominal Pain (ED), Flank Pain (ED) Additional Instructions: your labs and urine are reassuring your CT scan shows bilateral kidney stones but no obstruction or movement of stones this is not the cause of your pain - they may travel and cause pain if they go down your ureter no other issues found return for worsening symptoms or concerns FINDINGS: LOWER CHEST: The visualized lung bases are clear. There is no pleural effusion. CARDIOVASCULATURE: The heart is normal in size. There is no pericardial effusion. LIVER: The liver is normal in size and contour. The liver has an unremarkable unenhanced appearance. GALLBLADDER / BILE DUCTS: The gallbladder is unremarkable. There is no intra or extrahepatic biliary ductal dilatation. SPLEEN: The spleen is normal in size and has an unremarkable unenhanced appearance. PANCREAS: The pancreas has an unremarkable unenhanced appearance. ADRENAL GLANDS: Unremarkable. KIDNEYS/RETROPERITONEUM: There are multiple tiny 1-2 mm nonobstructing calculi at the upper and lower poles of both kidneys. There is no hydronephrosis or hydroureter. No ureteral calculi are identified. LYMPH NODES: No retroperitoneal lymphadenopathy is identified in the abdomen or pelvis. VASCULATURE: The abdominal aorta is normal in caliber. MESENTERY/PERITONEUM: No free fluid. No masses. There is no free intraperitoneal gas. STOMACH: The stomach is collapsed, limiting evaluation. SMALL BOWEL: The small bowel is normal in caliber. COLON: The colon is unremarkable. APPENDIX: Normal. URINARY BLADDER/PELVIC ORGANS: The urinary bladder is collapsed, limiting evaluation. The prostate is normal in size. BONES / SOFT TISSUES: No suspicious bony or soft tissue abnormalities. CT/CT abdomen pelvis wo IV con IMPRESSION: Bilateral nephrolithiasis as described, without evidence of ureteral obstruction. Prescriptions: No Action propranolol 10 mg Tablet 10 mg PO DAILY PRN (Reason: Anxiety) melatonin 10 mg Tablet 10 mg PO BEDTIME PRN (Reason: Sleep) oxcarbazepine 150 mg Tablet 150 mg PO BID 30 Days Qty: 60 0RF trazodone 50 mg Tablet 50 mg PO BEDTIME PRN (Reason: Insomnia) 30 Days Qty: 30 0RF escitalopram oxalate 10 mg Tablet 10 mg PO DAILY 30 Days Qty: 30 0RF Print Language: Nigerien
[2024-09-17 06:53] LABS: MANUAL DIFF FLAG NO
[2024-09-17 06:58] LABS: Basophils Absolute Auto 0.1 X10*3/uL (0.0-0.2); Eosinophils Absolute Auto 0.1 X10*3/uL (0.0-0.4); Eosinophils Percent Auto 0.8 % (0-4); Hematocrit 47.9 % (42.0-52.0); Imm Gran Abs Auto 0.02 X10*3/uL (0.00-0.03); Imm Gran Pct Auto 0.3 % (0.0-0.4); Lymphocytes Absolute Auto 3.5 X10*3/uL (1.2-4.9); Lymphocytes Percent Auto 44.7 % (20-40); Mean Corpuscular HGB Conc 33.4 g/dl (31.0-36.0); Mean Corpuscular Hemoglobin 30.2 pg (27.0-33.0); Mean Corpuscular Volume 90.4 fL (80.0-98.0); Mean Platelet Volume 8.8 fL (9.4-12.4); Monocytes Absolute Auto 0.8 X10*3/uL (0.1-1.2); Monocytes Percent Auto 10.4 % (2-11); Neutrophils Absolute Auto 3.4 x10*3/uL (2.0-8.3); Neutrophils Percent Auto 42.8 % (45-73); Platelet Count 257 X10*3/uL (160-400); Red Cell Distribution Width 13.2 % (11.0-16.0); White Blood Count 7.9 X10*3/uL (4.8-10.8)
--- OUTSIDE RECORDS SUMMARY | 2024-09-17 06:59 | XMS_ITS | Clinical Summary ---
Author Organization [facility] Address [address] [place] [address] [address] [place] [address] Care Team Providers Care Clinical Supervisor Name Role Phone Latoya Torres AMANDA Primary Care Provider [phone] Allergies Active Allergy Reactions Criticality Noted Date Comments Minocycline 11/30/2014 Other reaction(s): Hematuria, Hematuria urinates blood Medications * This document contains information received from the source organization and may not represent a complete record from that organization. fluconazole (Diflucan) 150 MG tabletIndicatio ns:Tinea pedis of both feet Take 1 pill now and repeat in 1 week 2 tablet 04/01/20 23 Active miconazole (Micotin) 2 % powderIndicatio ns:Tinea pedis of both feet Apply twice daily to feet 85 g 04/01/20 23 Active propranolol (Inderal) 10 MG tabletIndicatio ns:Depression with anxiety Take 1 tablet (10 mg) by mouth Once per day. 30 tablet 05/29/20 24 025 Active nicotine polacrilex (Nicorette) 4 MG gumIndications: Vapes nicotine containing substance Chew 1 each (4 mg) if needed for smoking cessation. First week- use 1 piece every 1-2 hours, do not exceed 24 pieces daily 100 each 06/26/19 25 Active cholecalciferol (Vitamin D-3) 20 MCG (800 UNIT) tabletIndicatio ns:Vitamin D deficiency Take 1 tablet (20 mcg) by mouth Once per day. 30 tablet 06/29/19 25 026 Active emtricitabine-t enofovir DF (Truvada) 200-300 MG tabletIndicatio ns:Encounter for HIV pre-exposure prophylaxis Take 1 tablet by mouth Once per day. 30 tablet 06/29/19 25 026 Active OXcarbazepine (Trileptal) 150 MG tablet TAKE 1 TABLET BY MOUTH EVERY 12 HOURS 30 tablet 2 07/02/19 25 Active mirtazapine (Remeron) 15 MG tabletIndicatio ns:Depression with anxiety Take 1 tablet (15 mg) by mouth at bedtime. 30 tablet 1 09/03/19 25 Active mirtazapine (Remeron) 15 MG tabletIndicatio ns:Depression with anxiety Take 1 tablet (15 mg) by mouth at bedtime. 30 tablet 07/29/19 25 025 Discontinued mirtazapine (Remeron) 15 MG tabletIndicatio ns:Depression with anxiety TAKE 1 TABLET BY MOUTH AT BEDTIME 30 tablet 08/26/19 25 025 Discontinued(Re order (will not trigger notification to Pharmacy)) Active Problems Problem Noted Date Diagnosed Date Encounter for HIV pre-exposure prophylaxis 06/26 Assessment & Plan (07/30/2024 3:11 PM EST): Advised pt importance of prep med adherence and daily intake. Pt would like to discontinue prep at this time Advised pt to use safe sexual practices at this time as without taking prep there is a risk of acquiring HIV. Discussed Doxy Pep as an alternative for STI prevention, pt declines at this time but will revisit. 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 PLAN: 1. Follow up with [facility]: Not recommended for follow-up 2. Patient goal is to find stable housing 3. Behavioral Recommendations a. Care Management referral b. Incorporate mindfulness techniques and self-care into daily routine Assessment & Plan (04/10/2023 12:33 PM EST): SDOH referral and referral to [facility] done today Depression with anxiety 04/10/2023 Overview (04/10/2023): referred to Behavioral health Had several suicidal ideation/attempt last year in february Referred to [facility] Assessment & Plan (07/30/2024 3:15 PM EST): Pt has discontinued lexapro on his own about 1 month ago, no taper needed at this time. Did advise pt of danger of initiating/stopping medications on their own. Will start patient on remeron 15mg at bedtime in hopes to promote better sleep habits and increase appetite. Advised pt to decrease caffeine intake to a maximum of 325 mg daily. Pt declines consult at this time, he would like to try interventions on his own at this time. F/u in 1 month Assessment & Plan (06/01/2024 7:02 PM EST): Pt reports they are happy with current med regimen Taking propanolol, trileptal and lexapro, refills sent Declines additional services at this time Follow up in 3 months Assessment & Plan (04/10/2023 10:15 AM EST): referred to [facility] Had several suicidal ideation/attempt last year in february Referred to [facility] Poor dentition 04/10/2023 Overview (04/10/2023): Advise to [...] this time. PLAN: 1. Follow up with [facility]: Not recommended for follow-up 2. Patient goal is to find stable housing 3. Behavioral Recommendations a. Care Management referral b. Incorporate mindfulness techniques and self-care into daily routine Encounters Date Type Department Care Team Description 09/02/2024 10:00 AM EDT Telemedicine [facility] MEDICINE [address] [place] [address] Latoya Torres CNP Depression with anxiety 09/02/2024 Travel 09/02/2024 Telephone [facility] MED & PEDS [address] [place] [address] Latoya Torres CNP 08/26/2024 Travel 08/25/2024 Telephone [facility] [address] [place] [address] Latoya Torres CNP 08/25/2024 Refill [facility] [address] [place] [address] Latoya Torres CNP Depression with anxiety 08/19/2024 Refill [facility] [address] [place] [address] Latoya Torres CNP Depression with anxiety 08/14/2024 Population Health Risk Score [facility] [address] [phone] Provider, Population Health Generic 08/11/2024 Telephone [facility] [address] [place] [address] Latoya Torres CNP 07/29/2024 3:15 PM EST Office Visit [facility] [address] [place] [address] Latoya Torres CNP Depression with anxiety (Primary Dx); Vapes nicotine containing substance; Encounter for HIV pre-exposure prophylaxis 07/29/2024 Travel 07/14/2024 Telephone [facility] [address] [place] [phone] Latoya Torres CNP Chart Prep 07/14/2024 Patient Outreach [address] [address] Latoya Torres CNP Care Coordination ([facility] telephone call outreach graduate) 07/14/2024 Patient Outreach [address] [address] Latoya Torres CNP Care Coordination ([facility] telephone call outreach) 07/02/[address] [address] Latoya Torres CNP Depression with anxiety 07/02/[address] [address] Jany Bonilla NP 06/29/2024 Orders Only [address] [address] Latoya Torres CNP Encounter for HIV pre-exposure prophylaxis (Primary Dx); Vitamin D deficiency 06/26/2024 3:00 PM EST Office Visit [address] [address] Latoya Torres CNP Encounter for HIV pre-exposure prophylaxis (Primary Dx); Other fatigue; Vapes nicotine containing substance 06/26/2024 Telephone [facility] MED [facility] PEDS [address] [place] [address] Adelaida Lamb FNP [employer] Provider 06/26/2024 Travel 06/24/2024 1:10 PM EST Clinical Support [address] [address] Magan Mckeon, SELINA Syphilis 06/24/2024 Orders Only [address] [address] Elena Lin, SELINA On pre-exposure prophylaxis for HIV 06/24/2024 Travel 06/24/2024 Orders Only [facility] [address] [place] [address] Latoya Torres CNP Encounter for HIV pre-exposure prophylaxis (Primary Dx) 06/19/2024 Patient Outreach [facility] [address] [place] [address] Latoya Torres CNP Care Coordination ([facility] -[facility] telephone call outreach) from Last 3 Months Immunizations Name Administration Dates Next Due DTaP 03/10/1997, 7,1996,04/09 HPV, Quadrivalent 05/15/2013,04/23/2012,12/16/19 11 Hep A, ped/adol, 2 dose 12/15/2010,11/15/2009 Hep B, Adolescent or Pediatric 1996,1995,1996 Hib ([facility]) 03/10/1997, 7,1996,04/09 IPV 03/10/1997, 7,1996,04/09 Influenza injectable [...] Passive Smoke Exposure: Never Smokeless Tobacco: Never Tobacco Cessation:Counseling Given: Yes Depression Answer Date Recorded Patient Health Questionnaire-9 Score 7 07/29/2024 Patient Health Questionnaire-9 Score 7 07/29/2024 Last PHQ-9: Questionnaire Data Not on file 0 07/29/2024 Housing Stability Answer Date Recorded What is [...] Answer Date Recorded Patient Health Questionnaire-2 Score 1 07/29/2024 Internet Access Answer Date Recorded Internet Access [...] Sign Reading Time Taken Comments Blood Pressure 138/87 07/29/2024 3:42 PM EST Pulse 77 07/29/2024 3:22 PM EST Temperature 36.8 ??C (98.3 ??F) 07/29/2024 3:22 PM ES T Respiratory Rate 16 07/29/2024 3:22 PM EST Oxygen Saturation 98% 07/29/2024 3:22 PM EST Inhaled Oxygen Concentration - - Weight 53.1 kg (117 lb) 07/29/2024 3:22 PM EST Height 175.3 cm (5' 9 ) 05/29/2024 1:36 PM EST Body Mass Index 17.28 05/29/2024 1:36 PM EST Plan of Treatment Upcoming Encounters Date Type Department Care Team (Late st Contact Info) Description 10/02/2024 10:15 AM EDT Telemedicine [facility] MEDICINE [address] [place] [address] Latoya Torres, POWER CHECKER [address] [place] [address] 10/13/2024 11:15 AM EDT Office Visit [facility] OPTOMETRY [address] [place], [place] [phone] Sona Abad, OD [address] [place], [place] [phone] Health Maintenance Due Date Last Done Comments Dental Prophylaxis 1996 Dental X-Ray: Bitewings 1996 Dental X-Ray: Full Mouth 1996 Family Planning (PISQ) 02/03/2011 Dental Oral Exam 10/10/2023 04/10/2023 Influenza Vaccine (#1) 2024 7, 05/15/2016, 05/15/2013, Additional history exists Postponed from 02/02/2024 (Patient Refused) SDOH Screening 05/21/2025 05/21/2024 Alcohol/Substance Use Screening 05/29/2025 05/29/2024 COVID-19 Vaccine ( season) 2025 11/23/2020, 11/02/2020 Postponed from 02/02/2024 (Patient Refused) Tobacco Screening 06/26/2025 06/26/2024 Depression Screening 07/29/2025 07/29/2024, 07/29/19 25 DTaP/Tdap/Td Vaccines (9 - Td or Tdap) [...] Vaccine Completed 05/15/2013, 008 HIV Screening Completed 06/26/2024, 08/2024, 04/10/2023 Hepatitis C Screening Completed 06/26/2024 , 06/05/2024, 04/10/2023 Pneumococcal Vaccine: Pediatrics (0 to 5 Years) and At-Risk Patients (6 to 49) Years) Aged Out No longer eligible based on patient's age to complete this topic RSV under 20 months Aged Out No longe r eligible based on patient's age to complete this topic Rotavirus Vaccines Aged Out No longer eligible based on patient's age to complete this topic Procedures Procedure Name Priority Date/Time Associated Diagnosis Comments TSH W/REFLEX TO FT4 Routine 06/26/2024 3 :32 PM EST Other fatigue VITAMIN B12/FOLATE, SERUM PANEL Routine 06/26/2024 3:32 PM EST Other fatigue VITAMIN D,25-OH,TOTAL,IA Routine 06/26/2024 3:32 PM EST Other fatigue COMPREHENSIVE METABOLIC PANEL Routine 06/26/2024 3:32 PM EST Encounter for HIV pre-exposure prophylaxis HEPATITIS B SURFACE ANTIGEN, EIA Routine 06/26/2024 3:32 PM EST Encounter for HIV pre-exposure prophylaxis HEPATITIS B CORE AB TOTAL Routine 06/26/2024 3:32 PM EST Encounter for HIV pre-exposure prophylaxis HEPATITIS B SURFACE ANTIBODY, QUALITATIVE Routine 06/26/2024 3:32 PM EST Encounter for HIV pre-exposure prophylaxis CBC WITH AUTO DIFFERENTIAL Routine 06/26/2024 3:32 PM EST Healthcare maintenance HEPATIC FUNCTION PANEL Routine 3:32 PM EST Healthcare maintenance HIV 1/2 ANTIGEN/ANTIBODY, FOURTH GENERATION W/RFL Routine 06/26/2024 3:32 PM EST Routine screening for STI (sexually transmitted infection) RPR (MONITOR) W/REFL TITER Routine 06/26/2024 3:32 PM EST Routine screening for STI (sexually transmitted infection) HEPATITIS C AB W/REFL TO HCV RNA, QN, PCR Routine 06/26/2024 3:32 PM EST Routine screening for STI (sexually transmitted infection) COMPREHENSIVE ORAL EVALUATION - NEW OR ESTABLISHED PATIENT Routine 04/10/2023 11:30 AM EST Encounter for dental examination Dental caries Dental calculus Periodontal disease Dental abscess from Last 3 Months or Most Recently Relevant to Health Maintenance Results * (ABNORMAL) Vitamin D, 25-Hydroxy, Total, Immunoassay (06/26/2024 3:32 PM EST) Vitamin D 25-OH Total 12.4(L) >30 ng/mL [facility] Comment:Health Based Referen ce Values*< 20 ng/mL [id number] ng/mL Insufficient> 30 ng/mL Sufficient*Matt OCHOA. N Engl J Med. 2007;357:266-280Care must be taken in interpreting Vitamin D results fromdifferent laboratories and methodologies. Published datademonstrated that results from patients undergoinghemodialysis may show a negative bias when tested withvarious automated 25-OH vitamin D assays when compared toLC-MS/MS.When testing samples from patients whose predominant form ofVitamin D is Vitamin D2, such as patients receiving VitaminD2 supplementation, results that are subtherapeutic shouldbe confirmed with another method such as LC-MS/MS. Blood Venous blood specimen / Unknown 06/26/2024 3:32 PM EST 06/26/2024 4:09 PM EST [facility] LAB BLOOD ORDERABLES Aida l Result Performing Organization Address City/[facility]/ZIP Co de Phone Number [facility] [address] [place] [phone] * Vitamin B12/Folate, Serum Panel (06/26/2024 3:32 PM EST) Vitamin B12 417 200 - 900 pg/mL [facility] Comment:NORMAL 200-900 PG/ML INDETERMINATE 160-199 PG/ML DEFICIENT < 160 PG/ML Folate 7.7 > or = 4.0 ng/mL [facility] Comment:Reference Values:> o r = 4.0 ng/mL< 4.0 ng/mL suggests folate deficiency Methotrexate, aminopterin and folinic acid(leucovorin) are chemotherapeutic agents whose molecularstructures are similar to folate; therefore, the Architectfolate assay cannot be used for patients using these drugs. Blood Venous blood specimen / Unknown 06/26/2024 3:32 PM EST 06/26/2024 4:09 PM EST [facility] LAB BLOOD ORDERABLES Aida l Result Performing Organization Address [facility] Co de Phone Number [facility] [address] [place] [phone] * TSH W/Reflex to FT4 (06/26/2024 3:32 PM EST) TSH reflex Free T4 0.82 0.32 - 4.0 uIU/mL [facility] Blood Venous blood specimen / Unknown 06/26/2024 3:32 PM EST 06/26/2024 4:09 PM EST [facility] LAB BLOOD ORDERABLES Aida l Result Performing Organization Address City/[facility]/ZIP Co de Phone Number [facility] [address] [place] [phone] * (ABNORMAL) CBC auto differential (06/26/2024 3:32 PM EST) White Blood Count 5.0 4.8 - 10.8 X10*3/uL [facility] Red Blood Count 5.06 4.60 - 5.80 X10*6/uL [facility] Hemoglobin 14.8 14.0 - 18.0 g/dl [facility] Hematocrit 46.8 42.0 - 52.0 % [facility] Mean Corpuscular Volume 92.5 80.0 - 98.0 fL [facility] Mean Corpuscular Hemoglobin 29.2 27.0 - 33.0 pg [facility] Mean Corpuscular HGB Conc 31.6 31.0 - 36.0 g/dl [facility] Red Cell Distribution Width 13.6 11.0 - 16.0 % [facility] Platelet Count 271 160 - 400 X10*3/uL [facility] Mean Platelet Volume 9.3(L) 9.4 - 12.4 fL [facility] Neutrophils Percent Auto 40.7(L) 45 - 73 % [facility] Imm Gran Pct Auto 0.2 0.0 - 0.4 % [facility] Lymphocytes Percent Auto 42.4(H) 20 - 40 % [facility] Monocytes Percent Auto 12.7(H) 2 - 11 % [facility] Eosinophils Percent Auto 3.0 0 - 4 % [facility] Basophils Percent Auto 1.0 0 - 2 % [facility] NRBC Pct Auto 0.0 0.0 - 0.2 /100WBC [facility] Neutrophils Absolute Auto 2.0 2.0 - 8.3 x10*3/uL [facility] Imm Gran Abs Auto 0.01 0.00 - 0.03 X10*3/uL [facility] Lymphocytes Absolute Auto 2.1 1.2 - 4.9 X10*3/uL [facility] Monocytes Absolute Auto 0.6 0.1 - 1.2 X10*3/uL [facility] Eosinophils Absolute Auto 0.2 0.0 - 0.4 X10*3/uL [facility] Basophils Absolute Auto 0.1 0.0 - 0.2 X10*3/uL [facility] NRBC Abs Auto 0.000 0.0 - 0.012 X10*3/uL [facility] Blood Venous blood specimen / Unknown 06/26/2024 3:32 PM EST 06/26/2024 4:09 PM EST [facility] LAB BLOOD ORDERABLES Aida l Result Performing Organization Address City/[facility] Co de Phone Number [facility] [address] [place] [phone] * Hepatitis C Antibody with Reflex to HCV, RNA, Quantitative, Real-Time PCR (06/26/2024 3:32 PM EST) Hepatitis C Antibody Nonreactive Nonreactive [facility] Comment:Antibodies to HCV no t detected; does not exclude early acuteHCV infection. Blood Venous blood specimen / Unknown 06/26/2024 3:32 PM EST 06/26/2024 4:09 PM EST Result [facility] LAB BLOOD ORDERABLES Aida l Result Performing Organization Address [facility] Co de Phone Number [facility] [address] [place] [phone] * Hepatitis B surface antigen, EIA (06/26/2024 3:32 PM EST) Hepatitis B Surface Ag Negative Negative [facility] Blood Venous blood specimen / Unknown 06/26/2024 3:32 PM EST 06/26/2024 4:09 PM EST Result [facility] LAB BLOOD ORDERABLES Aida l Result Performing Organization Address [facility] Co de Phone Number [facility] [address] [place] [phone] * Hepatitis B Core Antibody, Total (06/26/2024 3:32 PM EST) Hepatitis B Core Antibody Nonreactive Nonreactive [facility] Blood Venous blood specimen / Unknown 06/26/2024 3:32 PM EST 06/26/2024 4:09 PM EST [facility] LAB BLOOD ORDERABLES Aida l Result Performing Organization Address City/[facility]/ZIP Co de Phone Number [facility] [address] [place] [phone] * (ABNORMAL) RPR (Monitor) with Reflex to??Titer (06/26/2024 3:32 PM EST) RPR (Monitor) w/Refl Titer REACTIVE( A) NON-REACT PETE [facility] Comment:The RPR is a non-suleiman ponemal-specific test; therefore,a treponemal- specific confirmatory test should beperformed unless prior syphilis infection has beendocumented for this patient.THIS TEST WAS PERFORMED AT:[employer] [address] [phone] VALDOVINOS MD Rapid Plasma Reagin Ab Titer 1:8(A) [facility] Comment:THIS TEST WAS PERFOR MED AT:[employer] [address] [phone] VALDOVINOS MD Blood Venous blood specimen / Unknown 06/26/2024 3:32 PM EST 06/26/2024 4:09 PM EST [facility] LAB BLOOD ORDERABLES Aida l Result Performing Organization Address [facility]/ZIP Co de Phone Number [facility] [address] [place] [phone] * HIV-1/2 Antigen and Antibodies, Fourth Generation, with Reflexes (06/26/2024 3:32 PM EST) Pathologist [facility] HIV AB/AG Nonreactive Nonreactive [facility] Comment:HIV-1 p24 Ag and/or HIV-1/HIV-2 Ab not detected.A test result that is nonreactive does not exclude thepossibility of exposure to or infection with HIV-1 and/orHIV-2. Nonreactive results in this assay for individualswith prior exposure to HIV-1 and/or HIV-2 may be due toantigen and antibody levels that are below the limit ofdetection of this assay.The [employer] HIV Ag/Ab Combo assay result andsupplemental assay results should be interpreted inconjunction with the patient's clinical presentation,history and other laboratory results. If the results areinconsistent with clinical evidence, additional testing issuggested to confirm the result. Blood Venous blood specimen / Unknown 06/26/2024 3:32 PM EST 06/26/2024 4:09 PM EST [facility] LAB BLOOD ORDERABLES Aida l Result Performing Organization Address City/[facility]/ZIP Co de Phone Number [facility] [address] [place] [phone] * Hepatitis B Surface Antibody, Qualitative (06/26/2024 3:32 PM EST) Pathologist [facility] ~Hepatitis B Surface Antibody NONREACTIVE Nonreactive [facility] Comment:Nonreactive: < 8.00 mIU/mL Blood Venous blood specimen / Unknown 06/26/2024 3:32 PM EST 06/26/2024 4:09 PM EST [facility] LAB BLOOD ORDERABLES Aida l Result Performing Organization Address [facility]/ZIP Co de Phone Number [facility] [address] [place] [phone] * Hepatic Function Panel (06/26/2024 3:32 PM EST) [facility] Bilirubin, Direct 0.2 0.0 - 0.5 mg/dL [facility] Blood Venous blood specimen / Unknown 06/26/2024 3:32 PM EST 06/26/2024 4:09 PM EST Latoya Torres POWER CHECKER LAB BLOOD ORDERABLES Aida gibson Result [facility] [address] [place] [phone] * (ABNORMAL) Comprehensive Metabolic Panel (06/26/2024 3:32 PM EST) Sodium 141 135 - 145 mmol/L [facility] Potassium 4.9 3.3 - 5.1 mmol/L [facility] Comment:Mild Hemolysis.Inter pret result with caution Chloride 106 96 - 108 mmol/L [facility] Carbon Dioxide 28 22 - 29 mmol/L [facility] Anion Gap 12 12 - 20 [facility] Urea Nitrogen (BUN) 7(L) 9 - 16 mg/dL [facility] Creatinine, Serum 0.81 0.5 - 1.4 mg/dL [facility] Estimated Glomerular Filt Rate >60 [facility] Comment:Chronic Kidney Disea se: Estimated GFR < 60 mL/min/1.68s2Vrnbsz Kidney Disease: Estimated GFR < 15 mL/min/1.73m2 Glucose 57(LL) 60 - 115 mg/dL [facility] Comment:Critical value for t est glu: Results called to and readback by: ADELAIDA NATARAJAN Person calling: GAGANDEEP Date:06/26/24 Time:19:15 Calcium 8.9 8.4 - 10.2 mg/dL [facility] Bilirubin, Total 0.6 0.0 - 1.0 mg/dL [facility] Aspartate Amino Transferase 34 5 - 37 U/L [facility] Comment:Mild Hemolysis.Inter pret result with caution Alanine Aminotransferase 21 0 - 40 U/L [facility] Total Protein 7.7 6.5 - 8.0 g/dL [facility] Comment:Mild Hemolysis.Inter pret result with caution Albumin Level 4.3 3.5 - 5.0 g/dL [facility] Alkaline Phosphatase 104 39 - 117 U/L [facility] Blood Venous blood specimen / Unknown 06/26/2024 3:32 PM EST 06/26/2024 4:09 PM EST Latoya Torres [facility] LAB BLOOD ORDERABLES Aida l Result [facility] [address] [place] [phone] from Last 3 Months Insurance [facility] C3 HSN FULL [address] [place] [phone] [address] [place] [address] Care Teams Clinical Supervisor Relationship Specialty Start Date End Date Latoya Torres CNP [address] [place] [address] PCP - General Family Medicine 05/29/24
--- OUTSIDE RECORDS SUMMARY | 2024-09-17 06:59 | XMS_ITS | Encounter Summary ---
Author Organization [employer] Address [address] [place] [address] 7t [place] [address] Care Team Providers Care Recreational Sports Director Name Role Phone Latoya Torres CNP Primary Care Provider [phone] [phone] Reason for Visit * Reason Onset Date Comments Med Refill 08/19/2024 Encounter Details Date Type Department Care Team ([facility] st Contact Info) Description 08/19/2024 Refill [facility] MEDICINE [address] [place] [address] Latoya Torres CNP [address] [place] [address] Depression with anxiety Social History Tobacco Use Types Packs/Day Years [...] with others, in a hotel, in a senior living, living outside on the street, on a [...] Info) Description 10/02/2024 10:15 AM EDT Telemedicine [facility] MEDICINE [address] [place] [address] Latoya Torres CNP [address] [place] [address] 10/13/2024 11:15 AM EDT Office Visit [facility] OPTOMETRY [address] [place], [place] [phone] Sona Abad, OD [address] [place] [address] documented as of this encounter Visit Diagnoses Diagnosis Depression with anxiety Dysthymic disorder documented in this encounter Additional Health Concerns Assessment Noted Time PHQ-9 Depression Total Score: 7 07/29/19 25 3:41 PM EST documented as of this encounter Care Teams Recreational Sports Director Relationship Specialty Start Date End Date Latoya Torres CNP [address] [place] [address] PCP - General Family Medicine 05/29/24 documented as of this encounter
--- OUTSIDE RECORDS SUMMARY | 2024-09-17 06:59 | XMS_ITS | Encounter Summary ---
Author Organization [employer] Address [address] [place] [address] 7t [place] [address] Care Team Providers Care Ceramic Mold Designer Name Role Phone Renea Vaughn MD Primary Care Pro vider Latoya Torres CNP Primary Care Provider [phone] [phone] Reason for Visit * Reason Onset Date Comments Nurse Triage 04/09/2023 Family medical h istory of Cancer Encounter Details Date Type Department Care Team ([facility] st Contact Info) Description 04/09/2023 Telephone [facility] MEDICINE [address] [place] [address] Renea Vaughn MD [address] [place] [address] Nurse Triage (Family medical history of Cancer) [...] In slot and send a note to [facility] to be available and present at appt. On 04/10/[address] Stark Protocol Used: No Protocol Available (Adult) Protocol-Based Disposition: See in Office or Video Visit Today or Tomorrow- appt. Scheduled for 04/10/[address] Stark- Will send message to [facility] /BE so that clinician is at 9am [...] Info) Description 10/02/2024 10:15 AM EDT Telemedicine [facility] MEDICINE [address] [place] [address] Latoya Torres CNP [address] [place] [address] 10/13/2024 11:15 AM EDT Office Visit [facility] OPTOMETRY [address] [place], [place] [phone] Sona Abad, OD [address] [place] [address] documented as of this encounter Visit Diagnoses Not on filedocumented in this encounter Care Teams Ceramic Mold Designer Relationship Specialty Start Date End Date Renea Vaughn MD [address] [place] [id number] PCP - General Internal Medicine 11/02/22 05/11/24 Latoya Torres CNP [address] [place] [address] PCP - General Family Medicine 05/29/24 documented as of this encounter
--- OUTSIDE RECORDS SUMMARY | 2024-09-17 06:59 | XMS_ITS | Encounter Summary ---
Author Organization [employer] Address [address] [place] [address] 7t [place] [address] Care Team Providers Care Plan Consultant Name Role Phone Latoya Torres CNP Primary Care Provider [phone] [phone] Reason for Visit * Reason Onset Date Comments Med Refill 07/02/2024 Encounter Details Date Type Department Care Team ([facility] st Contact Info) Description 07/02/2024 Refill [facility] MEDICINE [address] [place] [address] Latoya Torres CNP [address] [place] [address] Depression with anxiety Social History Tobacco Use [...] with others, in a hotel, in a intermediate, living outside on the street, on a [...] Info) Description 10/02/2024 10:15 AM EDT Telemedicine [facility] MEDICINE [address] [place] [address] Latoya Torres CNP [address] [place] [address] 10/13/2024 11:15 AM EDT Office Visit [facility] OPTOMETRY [address] [place], [place] [phone] Sona Abad, OD [address] [place] [address] documented as of this encounter Visit Diagnoses Diagnosis Depression with anxiety Dysthymic disorder documented in this encounter Additional Health Concerns Assessment Noted Time PHQ-9 Depression Total Score: 14 024 3:35 PM EST documented as of this encounter Care Teams Plan Consultant Relationship Specialty Start Date End Date Latoya Torres CNP [address] [place] [address] PCP - General Family Medicine 05/29/24 documented as of this encounter
--- OUTSIDE RECORDS SUMMARY | 2024-09-17 06:59 | XMS_ITS | Encounter Summary ---
Author Organization [employer] Address [address] [place] [address] 7t [place] [address] Care Team Providers Care Brush Painter Name Role Phone Latoya Torres CNP Primary Care Provider [phone] [phone] Encounter Details Date Type Department Care Team ([facility] st Contact Info) Description 06/12/2024 Telephone [facility] MEDICINE [address] [place], [place] [phone] Latoya Torres CNP [address] [place] [address] Social History Tobacco Use Types Packs/Day Years [...] Info) Description 10/02/2024 10:15 AM EDT Telemedicine [facility] MEDICINE [address] [place] [address] Latoya Torres CNP [address] [place] [address] 10/13/2024 11:15 AM EDT Office Visit [facility] OPTOMETRY [address] [place] [address] Sona Abad, OD [address] [place] [address] documented as of this encounter Visit Diagnoses Not on filedocumented in this encounter Additional Health Concerns Assessment Noted Time PHQ-9 Depression Total Score: 14 024 3:35 PM EST documented as of this encounter Care Teams Brush Painter Relationship Specialty Start Date End Date Latoya Torres CNP [address] [place] [address] PCP - General Family Medicine 05/29/24 documented as of this encounter
[2024-09-17 07:28] LABS: Alanine Aminotransferase 34 U/L (0-40); Albumin Level 4.7 g/dL (3.5-5.0); Anion Gap 14 (12-20); Aspartate Amino Transferase 36 U/L (5-37); Bilirubin Total 1.1 mg/dL (0.0-1.0); Blood Urea Nitrogen 8 mg/dL (9-16); Calcium 9.3 mg/dL (8.4-10.2); Carbon Dioxide 22 mmol/L (22-29); Chloride 109 mmol/L (96-108); Creatinine Clr Calc Pharmacy 95.9; Estimated Glomerular Filt Rate > 60; Glucose Random 86 mg/dL (60-115); Lipase 14 U/L (8-78); Potassium 3.7 mmol/L (3.3-5.1); Sodium 141 mmol/L (135-145); Total Protein 7.5 g/dL (6.5-8.0)
[2024-09-17 08:20] LABS: Alkaline Phosphatase 78 U/L (39-117)
[2024-09-17 10:14] LABS: Appearance Urine Clear; Color Urine Yellow; Glucose Urine UA Negative (Negative); Leukocyte Esterase Urine Negative (Negative); Nitrite Urine Negative (Negative); PH 5.5 (5.0-9.0); UMIC TRIGGER UACC YES; Urine Blood Trace (Negative); Urine Ketones Negative (Negative); Urine Protein Negative (Neg-Trace)
[2024-09-17 10:16] LABS: Bacteria Urine None Seen (None Seen); Hyaline Casts Urine 0-2 /LPF (0-2); RBC Urine 0-2 /HPF (0-2); Squamous Epithelial Cell Urine 0-2 /HPF (0-2); WBC Urine 0-5 /HPF (0-5)
[2024-09-17 10:20] VITALS: BP 112/71; PULSE 94; RESP 14; TEMP 36.8; O2SAT 97
[2024-09-17 10:31] VITALS: BP 112/71; PULSE 94; RESP 14; TEMP 36.8; O2SAT 97
== END 2024-09-17 10:32 | disposition home or self-care (01) ==
PROVIDERS: Emergency Provider Emergency Medicine
DX: R10.10 Upper abdominal pain, unspecified (principal); F17.210 Nicotine dependence, cigarettes, uncomplicated; F12.90 Cannabis use, unspecified, uncomplicated; Z79.899 Other long term (current) drug therapy
CPT/HCPCS: 36415; 74176; 80053; 81001; 83690; 85025; 99283; 99284

== ENCOUNTER → 2024-09-17 06:48 | Outpatient (BNV) | payer MEDICAID, SELFPAY | PROVIDERS: Emergency Provider Emergency Medicine; Visit Provider Radiology Diagnostic Radiology | DX: N20.0 Calculus of kidney (principal) | CPT/HCPCS: 74176 ==

== ENCOUNTER 2024-09-21 07:46 | Inpatient (IN) | payer OTHER, SELFPAY ==
[2024-09-21] VITALS (8 sets, daily range): BP systolic 105–129; BP diastolic 72–95; PULSE 62–89; RESP 15–21; TEMP 36.5–36.8; O2SAT 97–100; BMI 21.1
--- NOTE | 2024-09-21 | ECG_ITS ---
Test Reason : OVERDOSE Blood Pressure : */* mmHG Vent. Rate : 65 BPM Atrial Rate : 65 BPM P-R Int : 154 ms QRS Dur : 86 ms QT Int : 384 ms P-R-T Axes : 83 98 87 degrees QTcB Int : 399 ms Normal sinus rhythm Rightward axis Borderline ECG When compared with ECG of 21-Sep-2024 10:01, No significant change was found Referred By: Mykel Vargas Electronically Signed By: DWIGHT JOSHUA
--- NOTE | 2024-09-21 07:57 | ECG_ITS ---
Test Reason : OVER DOES Blood Pressure : */* mmHG Vent. Rate : 85 BPM Atrial Rate : 85 BPM P-R Int : 152 ms QRS Dur : 88 ms QT Int : 352 ms P-R-T Axes : 85 99 86 degrees QTcB Int : 418 ms Normal sinus rhythm Rightward axis Borderline ECG When compared with ECG of 05-Sep-2021 04:44, No significant change was found Referred By: Mykel Vargas Electronically Signed By: DWIGHT JOSHUA
--- NOTE | 2024-09-21 08:00 | ED.OVERDOSE ---
HPI - Overdose General Chief Complaint: Overdose Stated Complaint: PT STS, SI, HANDFULL/SZ MEDS,NARCAN W/GOOD RESULT Time Seen by Provider: 09/21/24 07:57 Source: patient and EMS Mode of arrival: EMS History of Present Illness HPI Narrative: This is a 29 years old the patient brought in by the roll up guider operator after an overdose of oxcarbamazepine, he was found in the car with altered mental status he was given Narcan by the roll up guider operator a transported to the emergency department. At this time is lethargic but arousable he states that he took an handful of pills oxcarbazepine complaint: intentional overdose Onset (ago): hour(s) (1) Intent: suicide attempt Associated symptoms: depression Treatments Prior to Arrival: narcan Related Data Home Medications ?Medication ?Instructions ?Recorded ?Confirmed melatonin 10 mg tablet 10 mg PO BEDTIME PRN Sleep 09/06/21 09/22/24 propranolol 10 mg tablet 10 mg PO DAILY PRN Anxiety 09/06/21 09/22/24 Previous Rx's ?Medication ?Instructions ?Recorded escitalopram oxalate 10 mg tablet 10 mg PO DAILY 30 days #30 tabs 09/13/21 oxcarbazepine 150 mg tablet 150 mg PO BID 30 days #60 tabs 09/13/21 trazodone 50 mg tablet 50 mg PO BEDTIME PRN Insomnia 30 09/13/21 days #30 tabs Allergies Allergy/AdvReac Type Severity Reaction Status Date / Time minocycline [MINOCYCLINE] Allergy Unknown URINATE Verified 09/21/24 08:09 BLOOD Review of Systems Review of Systems: Yes Unobtainable due to mental status PMFSH Past Medical History Medical History Conductive hearing loss Social History Social History Household Members: Family Household Members Other:: lives with mom, stepdad and brother Housing: Apartment Do you presently have visiting nurse or other home services: No Patient Tobacco Use Status: Current someday Tobacco user Tobacco use type: Cigarette Smoked in Last 30 Days: No Use of substances other than those prescribed or required for medical reasons: No Substance Use Type: Crack/Cocaine and Marijuana Advance Directives: No Advance Directives Information Provided: Yes Do you have a plan to hurt others: No Plan service: No Sexual orientation: Don't Know Physical Exam Vital Signs: Vital Signs: Last Vital Signs Temp 98.0 F 09/22/24 06:01 Pulse 65 09/22/24 10:09 Resp 18 09/22/24 10:09 BP 128/73 09/22/24 10:09 Pulse Ox 100 09/22/24 10:09 O2 Del Method Room Air 09/22/24 10:09 BMI result Body Mass Index 21.1 He is lethargic easily arousable at this time Const: Nutritional Appearance: average body habitus HEENT: Other: Examination of the head eyes ears nose and throat no sign of trauma Head: Yes normal to inspection Face and sinus: Yes normal facial exam Mouth: Normal oral and palatal mucosa present Throat: Yes posterior oropharynx normal Neck: Neck: Yes normal visual inspection and Yes full ROM Chest: Chest palpation & inspection: normal inspection of the chest Resp: Effort & Inspection: normal respiratory effort Auscultation: clear to auscultation bilaterally Cardio: Jugular venous distension: no JVD Rate: regular rate Rhythm: regular rhythm GI: Inspection: Yes normal to inspection Palpation (GI): Soft to palpation, not firm and nontender Neuro: Other: Patient is no focal, he has a decreased level of consciousness but arousable to voice Course Reevaluation(s) Reevaluation #1: Patient remained stable see lethargic easily arousable. He had an episode of priapism which lasted for about 2 hours and improve on his own. Patient will be signed out to Dr. Ceballos we will need crisis eval for the overdose Oxcarbazepine Time: 15:54 Reevaluation #2: Time: 08:32 Date: 09/22/24 Provider: NICOLE White Patient in physician observation for psychiatric evaluation.?I have reviewed all workup results. CBC without leukocytosis or left shift. No anemia. H&H stable. VBG showing bicarb of 28, otherwise wnl. Total bili elevated to 1.4, however this appears to be around patient's baseline. LFTs wnl. Chemistry without acute electrolyte abnormality requiring intervention. No AARON. Urine toxicology positive for cocaine, otherwise negative. Ethanol 124 at 2019. Salicylates, acetaminophen undetectable. oxycarbazepine level pending. ekg showing NSR w/ rate of 67 bpm. No acute events reported overnight. No current complaints. VS stable.?Patient is pending CARE team evaluation. Will continue to monitor. Reevaluation #3: admited to psych Medications Administered Discontinued Medications Generic Name Dose Route Start Last Admin Trade Name Darcie PRN Reason Stop Dose Admin Sodium Chloride 1,000 mls @ 999 mls/hr 09/21/24 08:00 09/21/24 09:17 Ns IVCONT 09/21/24 09:00 Infused .Q1H1M [place] Infusion Lactated Ringer's 1,000 mls @ 999 mls/hr 09/21/24 12:45 09/21/24 13:48 Lr IV 09/21/24 13:45 Infused .Q1H1M [place] Infusion Lactated Ringer's 1,000 mls @ 999 mls/hr 09/21/24 16:00 09/21/24 17:09 Lr IV 09/21/24 17:00 Infused .Q1H1M [place] Infusion Medical Decision Making Medical Decision Making MDM Narrative: Patient presented with a overdose of oxacarbazepine we will obtain labs drug screen acetaminophen aspirin level Differential Diagnosis Differential Diagnoses: The differential diagnosis associated with the presentation includes Overdose Lab Data 09/21/24 08:19 09/21/24 22:01 Labs: Lab Results 09/21/24 09/21/24 09/21/24 Range/Units 08:19 08:23 15:53 WBC 8.3 (4.8-10.8) X10*3/uL RBC 4.94 (4.60-5.80) X10*6/uL Hgb 14.8 (14.0-18.0) g/dl Hct 45.5 (42.0-52.0) % MCV 92.1 (80.0-98.0) fL MCH 30.0 (27.0-33.0) pg MCHC 32.5 (31.0-36.0) g/dl RDW 13.5 (11.0-16.0) % Plt Count 249 (160-400) X10*3/uL MPV 8.9 L (9.4-12.4) fL Immature Gran % (Auto) 0.1 (0.0-0.4) % Neut % (Auto) 54.4 (45-73) % Lymph % (Auto) 33.9 (20-40) % [place] % (Auto) 9.6 (2-11) % Eos % (Auto) 1.2 (0-4) % Baso % (Auto) 0.8 (0-2) % Lymph # (Auto) 2.8 (1.2-4.9) X10*3/uL [place] # (Auto) 0.8 (0.1-1.2) X10*3/uL Eos # (Auto) 0.1 (0.0-0.4) X10*3/uL Baso # (Auto) 0.1 (0.0-0.2) X10*3/uL Abs Immat Gran (auto) 0.01 (0.00-0.03) X10*3/uL Absolute Neuts (auto) 4.5 (2.0-8.3) x10*3/uL Absolute Nucleated RBC 0.000 (0.0-0.012) X10*3/uL Nucleated RBC % (auto) 0.0 (0.0-0.2) /100WBC VBG pH 7.34 (7.32-7.43) VBG pCO2 51 mmHg VBG pO2 42 mmHg VBG HCO3 28 H (22-26) mmol/L VBG O2 Saturation 71.0 % VBG Base Excess 1.6 mmol/L Sodium 144 (135-145) mmol/L Potassium 3.8 (3.3-5.1) mmol/L Chloride 112 H (96-108) mmol/L Carbon Dioxide 24 (22-29) mmol/L Anion Gap 12 (12-20) BUN 7 L (9-16) mg/dL Creatinine 0.79 (0.5-1.4) mg/dL Estim Creat Clear Calc 120.1 Estimated GFR > 60 Random Glucose 83 (60-115) mg/dL Calcium 8.8 (8.4-10.2) mg/dL Total Bilirubin 0.6 (0.0-1.0) mg/dL AST 28 (5-37) U/L ALT 26 (0-40) U/L Alkaline Phosphatase 69 (39-117) U/L Total Protein 7.0 (6.5-8.0) g/dL Albumin 4.5 (3.5-5.0) g/dL Urine Color Yellow Urine Appearance Clear Urine pH 7.0 (5.0-9.0) Ur Specific [place] 1.015 (1.005-1.025) Urine Protein Negative (Neg-Trace) mg/dL Urine Glucose (UA) Negative (Negative) mg/dL Urine Ketones Negative (Negative) mg/dL Urine Blood Negative (Negative) Urine Nitrite Negative (Negative) Ur Leukocyte Esterase Negative (Negative) Salicylates < 5.0 L (15-30) mg/dL Urine Opiates Screen Not Detected (Not Detect) Ur Buprenorphine Scrn Not Detected (Not Detect) ng/mL Ur Oxycodone Screen Not Detected (Not Detect) ng/mL Urine Methadone Screen Not Detected (Not Detect) ng/mL Urine Fentanyl Screen Not Detected (Not Detect) Acetaminophen < 3 (<30) mcg/mL Ur Barbiturates Screen Not Detected (Not Detect) Ur Phencyclidine Scrn Not Detected (Not Detect) Ur Amphetamines Screen Not Detected (Not Detect) U Benzodiazepines Scrn Not Detected (Not Detect) Urine Cocaine Screen POSITIVE H (Not Detect) U Marijuana (THC) Screen Not Detected (Not Detect) Ethyl Alcohol 124 mg/dL 09/21/24 Range/Units 22:01 WBC (4.8-10.8) X10*3/uL RBC (4.60-5.80) X10*6/uL Hgb (14.0-18.0) g/dl Hct (42.0-52.0) % MCV (80.0-98.0) fL MCH (27.0-33.0) pg MCHC (31.0-36.0) g/dl RDW (11.0-16.0) % Plt Count (160-400) X10*3/uL MPV (9.4-12.4) fL Immature Gran % (Auto) (0.0-0.4) % Neut % (Auto) (45-73) % Lymph % (Auto) (20-40) % [place] % (Auto) (2-11) % Eos % (Auto) (0-4) % Baso % (Auto) (0-2) % Lymph # (Auto) (1.2-4.9) X10*3/uL [place] # (Auto) (0.1-1.2) X10*3/uL Eos # (Auto) (0.0-0.4) X10*3/uL Baso # (Auto) (0.0-0.2) X10*3/uL Abs Immat Gran (auto) (0.00-0.03) X10*3/uL Absolute Neuts (auto) (2.0-8.3) x10*3/uL Absolute Nucleated RBC (0.0-0.012) X10*3/uL Nucleated RBC % (auto) (0.0-0.2) /100WBC VBG pH (7.32-7.43) VBG pCO2 mmHg VBG pO2 mmHg VBG HCO3 (22-26) mmol/L VBG O2 Saturation % VBG Base Excess mmol/L Sodium 143 (135-145) mmol/L Potassium 3.8 (3.3-5.1) mmol/L Chloride 111 H (96-108) mmol/L Carbon Dioxide 25 (22-29) mmol/L Anion Gap 11 L (12-20) BUN 8 L (9-16) mg/dL Creatinine 0.76 (0.5-1.4) mg/dL Estim Creat Clear Calc 124.8 Estimated GFR > 60 Random Glucose 89 (60-115) mg/dL Calcium 8.6 (8.4-10.2) mg/dL Total Bilirubin 1.4 H (0.0-1.0) mg/dL AST 28 (5-37) U/L ALT 26 (0-40) U/L Alkaline Phosphatase 70 (39-117) U/L Total Protein 6.1 L (6.5-8.0) g/dL Albumin 3.9 (3.5-5.0) g/dL Urine Color Urine Appearance Urine pH (5.0-9.0) Ur Specific [place] (1.005-1.025) Urine Protein (Neg-Trace) mg/dL Urine Glucose (UA) (Negative) mg/dL Urine Ketones (Negative) mg/dL Urine Blood (Negative) Urine Nitrite (Negative) Ur Leukocyte Esterase (Negative) Salicylates (15-30) mg/dL Urine Opiates Screen (Not Detect) Ur Buprenorphine Scrn (Not Detect) ng/mL Ur Oxycodone Screen (Not Detect) ng/mL Urine Methadone Screen (Not Detect) ng/mL Urine Fentanyl Screen (Not Detect) Acetaminophen (<30) mcg/mL Ur Barbiturates Screen (Not Detect) Ur Phencyclidine Scrn (Not Detect) Ur Amphetamines Screen (Not Detect) U Benzodiazepines Scrn (Not Detect) Urine Cocaine Screen (Not Detect) U Marijuana (THC) Screen (Not Detect) Ethyl Alcohol mg/dL Independent Interpretation I performed an independent interpretation of an: EKG Interpretation: Electrocardiogram shows sinus rhythm rate [address]-T changes Discharge Plan Discharge Clinical Impression: Overdose Qualifiers: Encounter type: initial encounter Injury intent: intentional self-harm Qualified Code(s): T50.902A - Poisoning by unspecified drugs, medicaments and biological substances, intentional self-harm, initial encounter Patient Disposition: Admitted As Inpatient
[2024-09-21] MEDS: 0.9 % Sodium Chloride 1,000 ML 999 ML IVCONT (08:04)
--- NOTE | 2024-09-21 08:05 | MHC.EDTECH ---
EKG was taken and read by the ED provider, Blood was drawn and send to the lab. Patient on the heart monitor. Sitter at the bed side 1:1.
--- NOTE | 2024-09-21 08:15 | PC.NURSE ---
Pt biba, PD found pt unresponsive in car. Per EMS, pt friend called police- no friend on scene. PD gave narcan, pt became more alert. Upon arrival pt lethargic, responding to questions, not following commands appropriately, calm/cooperative, pupils PERRLA- denies etoh/drug use. Pt states he took a handful of seizure medications starting with an O . SI with plan to overdose, denies HI. Pt changed [facility] into [facility] gown/pants- oil change technician done in room. Pt has 150mg tablets of Oxcarbazepine in belongings. A/ox3, respirations even and unlabored, no increased wob/sob noted, maintaining own airway/O2 sat on RA- O2 sat high 90s, placed on capnography 34-36, BP stable, NSR on ekg monitor tech, denies cp/sob at this time. EKG and labs obtained- unable to get urine sample at this time. 1:1 sitter at bedside for safety, vitals updated in worklist, call moses within reach, all needs met at this time.
[2024-09-21 08:23] LABS: MANUAL DIFF FLAG NO
[2024-09-21 08:26] LABS: Venous Blood Gas Refer to POC result
[2024-09-21 08:26] LABS: Basophils Absolute Auto 0.1 X10*3/uL (0.0-0.2); Basophils Percent Auto 0.8 % (0-2); Eosinophils Absolute Auto 0.1 X10*3/uL (0.0-0.4); Eosinophils Percent Auto 1.2 % (0-4); Hematocrit 45.5 % (42.0-52.0); Hemoglobin 14.8 g/dl (14.0-18.0); Imm Gran Abs Auto 0.01 X10*3/uL (0.00-0.03); Imm Gran Pct Auto 0.1 % (0.0-0.4); Lymphocytes Absolute Auto 2.8 X10*3/uL (1.2-4.9); Lymphocytes Percent Auto 33.9 % (20-40); Mean Corpuscular HGB Conc 32.5 g/dl (31.0-36.0); Mean Corpuscular Volume 92.1 fL (80.0-98.0); Mean Platelet Volume 8.9 fL (9.4-12.4); Monocytes Absolute Auto 0.8 X10*3/uL (0.1-1.2); Monocytes Percent Auto 9.6 % (2-11); Neutrophils Absolute Auto 4.5 x10*3/uL (2.0-8.3); Neutrophils Percent Auto 54.4 % (45-73); Platelet Count 249 X10*3/uL (160-400); Red Blood Count 4.94 X10*6/uL (4.60-5.80); Red Cell Distribution Width 13.5 % (11.0-16.0); White Blood Count 8.3 X10*3/uL (4.8-10.8)
[2024-09-21 08:28] LABS: VBG Base Excess 1.6 mmol/L; VBG HCO3 28 mmol/L (22-26); VBG pCO2 51 mmHg; VBG pH 7.34 (7.32-7.43); VBG pO2 42 mmHg
--- NOTE | 2024-09-21 08:32 | PC.NURSE ---
Pt friend at bedside. Per friend, pt is homeless. Friend went inside his parents house to shower approx 30min- when friend arrived back to car pt was unresponsive. Friend states pt was unresponsive, foaming at the mouth, and having seizure like activity for approx 15-20 seconds. Friends states he didn't see the bottle of medications taken. Hx of seizures and SI (no plan at the time.) BP cycling q 15, continuous O2 sat, and quality assurance monitor to monitor patient. 1:1 sitter at bedside, call moses within reach, all need met.
[2024-09-21 08:40] LABS: Alanine Aminotransferase 26 U/L (0-40); Albumin Level 4.5 g/dL (3.5-5.0); Alkaline Phosphatase 69 U/L (39-117); Anion Gap 12 (12-20); Aspartate Amino Transferase 28 U/L (5-37); Bilirubin Total 0.6 mg/dL (0.0-1.0); Blood Urea Nitrogen 7 mg/dL (9-16); Calcium 8.8 mg/dL (8.4-10.2); Carbon Dioxide 24 mmol/L (22-29); Chloride 112 mmol/L (96-108); Creatinine Clr Calc Pharmacy 120.1; Estimated Glomerular Filt Rate > 60; Ethanol 124 mg/dL; Glucose Random 83 mg/dL (60-115); Potassium 3.8 mmol/L (3.3-5.1); Sodium 144 mmol/L (135-145)
[2024-09-21 08:47] LABS: Acetaminophen LAB < 3 mcg/mL (<30); Salicylate < 5.0 mg/dL (15-30)
--- NOTE | 2024-09-21 09:02 | PC.NURSE ---
This RN spoke with poison control. Per PC, supportive care, EKG x2 hrs, monitor for GI effects/GM MOBILE depression. BP normotensive, nsr- HR 70s. MD Vargas aware.
--- NOTE | 2024-09-21 10:00 | ECG_ITS ---
Test Reason : SI / OVERDOSE Blood Pressure : */* mmHG Vent. Rate : 67 BPM Atrial Rate : 67 BPM P-R Int : 152 ms QRS Dur : 88 ms QT Int : 396 ms P-R-T Axes : 87 95 85 degrees QTcB Int : 418 ms Normal sinus rhythm Right atrial enlargement Rightward axis Abnormal ECG When compared with ECG of 21-Sep-2024 08:05, No significant change was found Referred By: Mykel Vargas Electronically Signed By: DWIGHT JOSHUA
--- NOTE | 2024-09-21 11:12 | PC.NURSE ---
Updated poison control on pt status. Pt remains lethargic, arousable to verbal stimuli. Maintaining own airway in bed, O2 sat >92% on room air. BP cycling q 15 to monitor, NSR on quality assurance monitor chassis, HR- 60s. Denies CP/SOB. Remains SI at this time, denies HI/AH/VH. Repeat EKG obtained, seizure precautions in place. 1:1 sitter at bedside for patient safety. Call moses within reach, all needs met at this time.
--- NOTE | 2024-09-21 11:40 | PC.NURSE ---
Tech informed this RN pt has had erection for approx 1 hour. Per gypsy, first noticed at 1045am. MD Vargas made aware. Per , monitor and reassess.
--- NOTE | 2024-09-21 11:46 | PC.NURSE ---
Tech at bedside bladder scanning patient, pt unable to void. Bladder scan showed 350mls. MD Vargas aware.
[2024-09-21] MEDS: Lactated Ringers 1,000 ML 999 ML IV ×2 (12:41→16:00)
--- NOTE | 2024-09-21 12:59 | PC.NURSE ---
Pt continues to have erection. MD Vargas at bedside, consult with urology.
--- NOTE | 2024-09-21 15:48 | PC.NURSE ---
Per MD Vargas, hang another liter of fluids, 2 Liter of LR and 1 Liter of NS total. Pt unable to void with assistance from tech and t/w- able to stand at bedside with assistance, steady gait. Bladder scan showed >750 mls. Straight cath done, output 800mls. Urine sent to lab. Pt a/ox3- responsive, following commands, calm/cooperative. 1:1 sitter at bedside, call moses within reach.
--- NOTE | 2024-09-21 16:09 | PC.NURSE ---
Pt placed on Sect 12 by MD Vargas.
[2024-09-21 16:13] LABS: Amphetamine Screen Urine Not Detected (Not Detect); Barbiturates, Urine Not Detected (Not Detect); Benzodiazepines Screen Urine Not Detected (Not Detect); Buprenorphine Scr Not Detected (Not Detect); Cannabinoid Screen Urine Not Detected (Not Detect); Cocaine Screen Urine POSITIVE (Not Detect); Fentanyl, urine Not Detected (Not Detect); Methadone Screen, Urine Not Detected (Not Detect); Opiate Screen Urine Not Detected (Not Detect); Oxycodone Screen Urine Not Detected (Not Detect); Phencyclidine Screen Urine Not Detected (Not Detect)
--- NOTE | 2024-09-21 20:02 | MHC.CARE ---
pt inpatient bedsearch, Dr. Ceballos consulted
--- NOTE | 2024-09-21 21:53 | PC.NURSE ---
poison control called and recommended repeat electrolytes. order placed for lab draw.
[2024-09-21 22:22] LABS: Alanine Aminotransferase 26 U/L (0-40); Albumin Level 3.9 g/dL (3.5-5.0); Alkaline Phosphatase 70 U/L (39-117); Anion Gap 11 (12-20); Aspartate Amino Transferase 28 U/L (5-37); Bilirubin Total 1.4 mg/dL (0.0-1.0); Blood Urea Nitrogen 8 mg/dL (9-16); Calcium 8.6 mg/dL (8.4-10.2); Carbon Dioxide 25 mmol/L (22-29); Chloride 111 mmol/L (96-108); Creatinine Clr Calc Pharmacy 124.8; Estimated Glomerular Filt Rate > 60; Glucose Random 89 mg/dL (60-115); Potassium 3.8 mmol/L (3.3-5.1); Sodium 143 mmol/L (135-145); Total Protein 6.1 g/dL (6.5-8.0)
[2024-09-22 06:01] VITALS: BP 117/73; PULSE 64; RESP 20; TEMP 36.7; O2SAT 99
--- NOTE | 2024-09-22 06:58 | PC.NURSE ---
Resumed care of pt at 0700, he is currently resting comfortably. 1:1 sitter maintained. Awaiting dispo at this time.
[2024-09-22 09:10] LABS: Appearance Urine Clear; Color Urine Yellow; Glucose Urine UA Negative (Negative); Leukocyte Esterase Urine Negative (Negative); Nitrite Urine Negative (Negative); Specific Gravity - Urine 1.015 (1.005-1.025); Urine Blood Negative (Negative); Urine Ketones Negative (Negative); Urine Protein Negative (Neg-Trace)
[2024-09-22 10:09] VITALS: BP 128/73; PULSE 65; RESP 18; O2SAT 100
--- NOTE | 2024-09-22 10:49 | PC.NURSE ---
report given to stan Molina being brought over to the POD at this time.
--- NOTE | 2024-09-22 11:13 | PC.NURSE ---
poison control contacted this RN stating patient can be medically cleared from them.
--- NOTE | 2024-09-22 14:12 | PHA.MEDREC ---
Addendum entered by Seamus Bella [facility] 09/22/24 14:38: Med rec reviews Original Note: Pharmacy Consult ? Medication Reconciliation Pharmacy reviewed med rec done by nursing. Spoke with patient and he was able to confirm his medications. Patient confirmed he is not compliant with taking his psych medications and states he takes the Propanolol and Mirtazapine as needed for anxiety, depression or sleep. Patient stated he is taking the Escitalopram 10mg tab twice a day for his anxiety; claims states he filled it 05/29 for 30 days and 06/29 for 30 and once a day, I kept it as daily. Patient was taking Oxycarbazepine 15mg tabs twice a day for his seizures but stated he overdosed on them yesterday causing the patient to be admitted into our facility today.
[2024-09-22 14:20] VITALS: BP 120/87; PULSE 72; RESP 16; TEMP 36.4; O2SAT 100
--- NOTE | 2024-09-22 15:09 | HO.PSYADMNOT ---
HPI Date of Service: 09/22/24 Chief Complaint: CRISIS Sources of Information: patient interviewed, chart reviewed and crisis/core team assessment reviewed HPI Subjective Notes: Ureña Warning and Conditional Voluntary Narrative: Patient is a 29-year-old male with history of MDD who presented to ER after being found unresponsive in his car in a suicide attempt secondary to increased life stressors. Per crisis report, patient was found unresponsive in his car and was administered Narcan. Patient had overdosed on oxcarbazepine. Patient reports he had been living with a friend until a few days ago and has been living in his car since. Patient expressed feelings of helplessness and hopelessness. patient continued to endorse suicidal ideation. denies HI. He reports hx of experiencing AH/VH. hx of 2 prior inpatient psychiatric admissions. hx of SA via overdose on medications. does not have outpatient psychiatric providers. Patient reports smoking marijuana daily and hx of cocaine use. Utox positive for cocaine and BAL 124. Patient reports multiple stressors such as homelessness, court hearing related to B&E. During admission assessment, patient presents alert and oriented x3. Calm and cooperative. Patient reports feeling depressed; patient stated, I have a lot going on right now. I'm alone. I only have my best friend. I don't have anywhere to go. I'd rather be with my mom (who ) than struggling . Pt reports suicidal ideation with no plan. denies HI/VH/AH. Patient reports auditory and visual hallucinations at times but did not go into detail. He denies substance use, despite his utox being positive for alcohol and cocaine. Pt states he has not been medication compliant for the past two months; pt stated, I just started retaking my meds 2 days ago . Past Psychiatric History: History of 2 other inpatient psychiatric hospitalizations. Does not have outpatient psychiatric providers. History of SA via OD on medications. Denies history of SIB Medical Evaluation Reviewed: Yes [facility] Medical History Conductive hearing loss Family History: Mother: Depression Social History: Pt graduated high school and went to [employer]. Homeless. Single. No kids. Works part-time. Substance History: Patient reports smoking marijuana; denies any other substance use. U tox positive for cocaine and BAL level 124. Trauma History: Denies Diagnostics Vital Signs (24Hr): Vital Signs - 24 hr 09/21/24 15:40 09/21/24 22:07 09/22/24 06:01 Temperature 97.7 F 97.9 F 98.0 F Pulse Rate 76 72 64 Respiratory Rate 20 16 20 Blood Pressure 124/87 116/75 117/73 Pulse Oximetry 100 99 99 Oxygen Delivery Method Room Air Room Air Room Air 09/22/24 10:09 Temperature Pulse Rate 65 Respiratory Rate 18 Blood Pressure 128/73 Pulse Oximetry 100 Oxygen Delivery Method Room Air BMI result Body Mass Index 21.1 Labs 09/21/24 08:19 09/22/24 15:05 Labs: Laboratory Results - last 48 hr 09/21/24 09/21/24 09/21/24 08:19 08:23 15:53 WBC 8.3 RBC 4.94 Hgb 14.8 Hct 45.5 MCV 92.1 MCH 30.0 MCHC 32.5 RDW 13.5 Plt Count 249 MPV 8.9 L Immature Gran % (Auto) 0.1 Neut % (Auto) 54.4 Lymph % (Auto) 33.9 [place] % (Auto) 9.6 Eos % (Auto) 1.2 Baso % (Auto) 0.8 Lymph # (Auto) 2.8 [place] # (Auto) 0.8 Eos # (Auto) 0.1 Baso # (Auto) 0.1 Abs Immat Gran (auto) 0.01 Absolute Neuts (auto) 4.5 Absolute Nucleated RBC 0.000 Nucleated RBC % (auto) 0.0 VBG pH 7.34 VBG pCO2 51 VBG pO2 42 VBG HCO3 28 H VBG O2 Saturation 71.0 VBG Base Excess 1.6 Sodium 144 Potassium 3.8 Chloride 112 H Carbon Dioxide 24 Anion Gap 12 BUN 7 L Creatinine 0.79 Estim Creat Clear Calc 120.1 Estimated GFR > 60 Random Glucose 83 Calcium 8.8 Total Bilirubin 0.6 AST 28 ALT 26 Alkaline Phosphatase 69 Total Protein 7.0 Albumin 4.5 Urine Color Yellow Urine Appearance Clear Urine pH 7.0 Ur Specific [place] 1.015 Urine Protein Negative Urine Glucose (UA) Negative Urine Ketones Negative Urine Blood Negative Urine Nitrite Negative Ur Leukocyte Esterase Negative Salicylates < 5.0 L Urine Opiates Screen Not Detected Ur Buprenorphine Scrn Not Detected Ur Oxycodone Screen Not Detected Urine Methadone Screen Not Detected Urine Fentanyl Screen Not Detected Acetaminophen < 3 Ur Barbiturates Screen Not Detected Ur Phencyclidine Scrn Not Detected Ur Amphetamines Screen Not Detected U Benzodiazepines Scrn Not Detected Urine Cocaine Screen POSITIVE H U Marijuana (THC) Screen Not Detected Ethyl Alcohol 124 09/21/24 22:01 WBC RBC Hgb Hct MCV MCH MCHC RDW Plt Count MPV Immature Gran % (Auto) Neut % (Auto) Lymph % (Auto) [place] % (Auto) Eos % (Auto) Baso % (Auto) Lymph # (Auto) [place] # (Auto) Eos # (Auto) Baso # (Auto) Abs Immat Gran (auto) Absolute Neuts (auto) Absolute Nucleated RBC Nucleated RBC % (auto) VBG pH VBG pCO2 VBG pO2 VBG HCO3 VBG O2 Saturation VBG Base Excess Sodium 143 Potassium 3.8 Chloride 111 H Carbon Dioxide 25 Anion Gap 11 L BUN 8 L Creatinine 0.76 Estim Creat Clear Calc 124.8 Estimated GFR > 60 Random Glucose 89 Calcium 8.6 Total Bilirubin 1.4 H AST 28 ALT 26 Alkaline Phosphatase 70 Total Protein 6.1 L Albumin 3.9 Urine Color Urine Appearance Urine pH Ur Specific [place] Urine Protein Urine Glucose (UA) Urine Ketones Urine Blood Urine Nitrite Ur Leukocyte Esterase Salicylates Urine Opiates Screen Ur Buprenorphine Scrn Ur Oxycodone Screen Urine Methadone Screen Urine Fentanyl Screen Acetaminophen Ur Barbiturates Screen Ur Phencyclidine Scrn Ur Amphetamines Screen U Benzodiazepines Scrn Urine Cocaine Screen U Marijuana (THC) Screen Ethyl Alcohol Meds/Allergies Meds Home Medications ?Medication ?Instructions ?Recorded ?Confirmed ?Type melatonin 10 mg tablet 10 mg PO BEDTIME PRN Sleep 09/06/21 09/22/24 History propranolol 10 mg tablet 10 mg PO DAILY PRN Anxiety 09/06/21 09/22/24 History cholecalciferol (vitamin D3) 10 20 mcg PO DAILY 09/22/24 09/22/24 History mcg (400 unit) tablet (Vitamin D3) mirtazapine 15 mg tablet 15 mg PO BEDTIME PRN 09/22/24 09/22/24 History Anxiety/Depression/Sleep Allergies Allergies Allergy/AdvReac Type Severity Reaction Status Date / Time minocycline [MINOCYCLINE] Allergy Unknown URINATE Verified 09/21/24 08:09 BLOOD Mental Status Exam Mental Status Exam Narrative: Pt is alert and oriented; behavior is cooperative, calm, guarded; dressed in casual attire; mood is described as depressed ; eye contact appropriate; Speech is normal rate, volume and not pressured; thought process is organized; Thought content is on tx; denies HI/VH/AH. Patient reports suicidal ideation with no plan. Assessment & Plan Assessment & Plan (1) MDD (major depressive disorder), recurrent episode, moderate: Status: Resolved Code(s): F33.1 - Major depressive disorder, recurrent, moderate (2) Homelessness: Status: Acute Code(s): Z59.00 - Homelessness unspecified (3) Cocaine use disorder: Status: Acute Code(s): F14.10 - Cocaine abuse, uncomplicated Plan Patient is a 29-year-old male with history of MDD who presented to ER after being found unresponsive in his car in a suicide attempt secondary to increased life stressors. Plan: CV 15 minute safety checks Obtain collateral Continue home medications CIWA Encourage groups Referral to outpatient psychiatric providers Discharge planning Patient educated on: diagnosis and medication risk/benefits Reason for continued inpatient stay Substantial Risk for: harm to self and med/psych decompensation Statement Statement: I have reviewed the history and physical and performed a pertinent examination on my patient. No changes have occurred unless specified. If the History and Physical was not performed prior to admission, the Hospitalist's service will be consulted for completing the admission physical. Time Spent With Patient Time: Total time managing care of this patient today _60___ minutes.
[2024-09-22 15:58] LABS: Alanine Aminotransferase 27 U/L (0-40); Alkaline Phosphatase 83 U/L (39-117); Anion Gap 11 (12-20); Aspartate Amino Transferase 26 U/L (5-37); Bilirubin Total 0.7 mg/dL (0.0-1.0); Blood Urea Nitrogen 8 mg/dL (9-16); Calcium 8.9 mg/dL (8.4-10.2); Carbon Dioxide 27 mmol/L (22-29); Chloride 108 mmol/L (96-108); Creatinine Clr Calc Pharmacy 110.3; Estimated Glomerular Filt Rate > 60; Glucose Random 104 mg/dL (60-115); Potassium 4.6 mmol/L (3.3-5.1); Sodium 141 mmol/L (135-145); Total Protein 6.7 g/dL (6.5-8.0)
[2024-09-22 16:16] LABS: Albumin Level 4.3 g/dL (3.5-5.0)
[2024-09-22 16:52] VITALS: BMI 16.7
--- NOTE | 2024-09-22 18:30 | PC.ADMIT ---
Tim is a 29 y/o male that? was admitted to [facility] at 1413 from Pod on CV for treatment of MDD.? Currently undomiciled, living in car and friends houses. Pt was found in his car unresponsive and was treated with narcan and brought to the hospital.? Pt reported ?I took a bunch of my SZ meds to just sleep and not wake up?.? Pt A&O x3. Focus was good. Pt was quiet.? Mood is depressed and affect is congruent.? Pt endorsed AVH. ?I usually hear whisperings and see shadows .? Pt denied current SI or HI at this time and stated that he would come to staff if thoughts arise.? Poor sleep and appetite. Pt is currently underweight, reported unknown weight loss.? Pt was organized and thought process linear. Some thought blocking.? Tox Screen? + cocaine and THC. BAL 124. Pt denied any substance use besides THC. Pt reported unknown alcohol consumption before admit.? Uses Nicotine vape daily. Hx of B&E, awaiting charges. Stressors - homeless and mom passed of cancer 2 years ago. Lacks support systems.? Hx of IPLOC on M3 September 2021.? Medical Issues - Hx of SZ, bilat hearing loss. Lost hearing aids.? No Physical complaints.? Pt was placed on 15 checks for safety.? Pt was placed on CIWA q4.
[2024-09-22 20:00] VITALS: BP 105/58; PULSE 70; RESP 14; TEMP 36.8; O2SAT 98
[2024-09-22] MEDS: Mirtazapine 15 MG TABLET PO (21:58)
[2024-09-22] MEDS: Melatonin 3 MG TABLET 9 MG PO (21:58)
[2024-09-22] MEDS: OXcarbazepine 150 MG TABLET PO (21:58)
[2024-09-23 07:39] VITALS: BP 126/83; PULSE 81; RESP 16; TEMP 36.5; O2SAT 100
[2024-09-23] MEDS: Cholecalciferol (Vitamin D3) 10 MCG TABLET 20 MCG PO (08:23)
[2024-09-23] MEDS: Thiamine HCL 100 MG TABLET PO (08:24)
[2024-09-23] MEDS: OXcarbazepine 150 MG TABLET PO ×2 (08:24→21:56)
[2024-09-23 08:40] LABS: Estimated Average Glucose 100 mg/dL; Hemoglobin A1c % 5.1 % (<6.0); Total Hemoglobin (HGBA1C) 3847.0276 umol/L
[2024-09-23 08:45] LABS: Cholesterol 169 mg/dL (<200); HDL Cholesterol 72 mg/dL (>40); LDL Cholesterol Calculated 62 mg/dL (<100); Triglycerides 177 mg/dL (<150)
--- NOTE | 2024-09-23 09:23 | HO.PSYCHPN ---
Subjective Subjective Date of Service: 09/23/24 Reason For Visit: CRISIS Subjective Notes: Conditional Voluntary Interim History: Laying in bed. Patient reports feeling okay but tired today; denies any side effects from medications. denies SI/HI/VH/AH. encouraged to attend groups. Medication Compliance: Yes Side effects from medications: No Attending Groups: No Mental Status Exam Mental Status Exam Narrative: Pt is alert and oriented; behavior is cooperative, calm, guarded; dressed in casual attire; mood is described as tired ; eye contact appropriate; Speech is normal rate, volume and not pressured; thought process is organized; Thought content is on tx; denies SI/HI/VH/AH. Diagnostics Vital Signs (24Hr): Vital Signs - 24 hr 09/22/24 10:09 09/22/24 14:20 09/22/24 20:00 Temperature 97.6 F 98.2 F Pulse Rate 65 72 70 Respiratory Rate 18 16 14 Blood Pressure 128/73 120/87 105/58 L Pulse Oximetry 100 100 98 Oxygen Delivery Method Room Air Room Air Room Air 09/23/24 07:39 Temperature 97.7 F Pulse Rate 81 Respiratory Rate 16 Blood Pressure 126/83 Pulse Oximetry 100 Oxygen Delivery Method Room Air BMI result Body Mass Index 16.7 Labs 09/21/24 08:19 09/22/24 15:05 Labs: Laboratory Results - last 48 hr 09/21/24 09/21/24 09/22/24 15:53 22:01 15:05 Hold Purple Top SEE NOTE Sodium 143 141 Potassium 3.8 4.6 D Chloride 111 H 108 Carbon Dioxide 25 27 Anion Gap 11 L 11 L BUN 8 L 8 L Creatinine 0.76 0.86 Estim Creat Clear Calc 124.8 110.3 Estimated GFR > 60 > 60 Random Glucose 89 104 Estimat Average Glucose Hemoglobin A1c % Calcium 8.6 8.9 Total Bilirubin 1.4 H 0.7 AST 28 26 ALT 26 27 Alkaline Phosphatase 70 83 Total Protein 6.1 L 6.7 Albumin 3.9 4.3 Triglycerides Cholesterol LDL Cholesterol, Calc HDL Cholesterol Hold Red Top See Note Urine Color Yellow Urine Appearance Clear Urine pH 7.0 Ur Specific [place] 1.015 Urine Protein Negative Urine Glucose (UA) Negative Urine Ketones Negative Urine Blood Negative Urine Nitrite Negative Ur Leukocyte Esterase Negative Urine Opiates Screen Not Detected Ur Buprenorphine Scrn Not Detected Ur Oxycodone Screen Not Detected Urine Methadone Screen Not Detected Urine Fentanyl Screen Not Detected Ur Barbiturates Screen Not Detected Ur Phencyclidine Scrn Not Detected Ur Amphetamines Screen Not Detected U Benzodiazepines Scrn Not Detected Urine Cocaine Screen POSITIVE H U Marijuana (THC) Screen Not Detected 09/23/24 08:07 Hold Purple Top Sodium Potassium Chloride Carbon Dioxide Anion Gap BUN Creatinine Estim Creat Clear Calc Estimated GFR Random Glucose Estimat Average Glucose 100 Hemoglobin A1c % 5.1 Calcium Total Bilirubin AST ALT Alkaline Phosphatase Total Protein Albumin Triglycerides 177 H Cholesterol 169 LDL Cholesterol, Calc 62 HDL Cholesterol 72 Hold Red Top Urine Color Urine Appearance Urine pH Ur Specific [place] Urine Protein Urine Glucose (UA) Urine Ketones Urine Blood Urine Nitrite Ur Leukocyte Esterase Urine Opiates Screen Ur Buprenorphine Scrn Ur Oxycodone Screen Urine Methadone Screen Urine Fentanyl Screen Ur Barbiturates Screen Ur Phencyclidine Scrn Ur Amphetamines Screen U Benzodiazepines Scrn Urine Cocaine Screen U Marijuana (THC) Screen Medications Medications Current Medications Acetaminophen (Acetaminophen 325 Mg Tablet) 650 mg PO Q6H PRN PRN Reason: Headache/Pain, Scale 1-10 Al Hydroxide/Mg Hydroxide (Magnesium Hydrox/Alum Hydrox 30 Ml Oral.Susp) 30 ml PO Q6H PRN PRN Reason: Heartburn/Nausea Hydroxyzine HCl (Hydroxyzine Hcl 25 Mg Tablet) 25 mg PO Q6H PRN PRN Reason: mild anxiety Lorazepam (Lorazepam 1 Mg Tablet) 1 mg PO Q2H PRN PRN Reason: CIWA 8-11 Lorazepam (Lorazepam 1 Mg Tablet) 2 mg PO Q2H PRN PRN Reason: CIWA 12-15 Lorazepam (Lorazepam 1 Mg Tablet) 3 mg PO Q2H PRN PRN Reason: CIWA > 15, and call Magnesium Hydroxide (Milk Of Magnesia 30 Ml Oral.Susp) 30 ml PO DAILY PRN PRN Reason: Constipation Melatonin (Melatonin 3 Mg Tablet) 9 mg PO BEDTIME [facility] Last Admin: 09/22/24 21:58 Dose: 9 mg Mirtazapine (Mirtazapine 15 Mg Tablet) 15 mg PO BEDTIME [facility] Last Admin: 09/22/24 21:58 Dose: 15 mg Nicotine Polacrilex (Nicotine Polacrilex 2 Mg Gum) 4 mg BUCCAL Q2H PRN PRN Reason: Nicotine Cravings Oxcarbazepine (Oxcarbazepine 150 Mg Tablet) 150 mg PO BID [facility] Last Admin: 09/23/24 08:24 Dose: 150 mg Propranolol HCl (Propranolol Hcl 10 Mg Tablet) 10 mg PO DAILY PRN; Protocol PRN Reason: Anxiety Thiamine HCl (Thiamine Hcl 100 Mg Tablet) 100 mg PO DAILY [facility] Last Admin: 09/23/24 08:24 Dose: 100 mg Trazodone HCl (Trazodone Hcl 50 Mg Tablet) 50 mg PO BEDTIME MRX1 PRN PRN Reason: Insomnia Vitamin D (Cholecalciferol (Vitamin D3) 10 Mcg Tablet) 20 mcg PO DAILY [facility] Last Admin: 09/23/24 08:23 Dose: 20 mcg Allergies Allergies Allergy/AdvReac Type Severity Reaction Status Date / Time minocycline [MINOCYCLINE] Allergy Unknown URINATE Verified 09/21/24 08:09 BLOOD Assessment & Plan Assessment & Plan (1) MDD (major depressive disorder), recurrent episode, moderate: Status: Resolved Code(s): F33.1 - Major depressive disorder, recurrent, moderate (2) Homelessness: Status: Acute Code(s): Z59.00 - Homelessness unspecified (3) Cocaine use disorder: Status: Acute Code(s): F14.10 - Cocaine abuse, uncomplicated Plan Patient is a 29-year-old male with history of MDD who presented to ER after being found unresponsive in his car in a suicide attempt secondary to increased life stressors. Plan: CV 15 minute safety checks Obtain collateral Continue home medications CIWA Encourage groups Referral to outpatient psychiatric providers Discharge planning 09/23: denies withdrawal symptoms. reports feeling tired. encouraged to attend groups. continue current tx plan. Patient educated on: diagnosis, medication risk/benefits and therapeutic strategies Reason for continued inpatient stay Substantial Risk for: med/psych decompensation Time Spent With Patient Time: Total time managing care of this patient today _10___ minutes.
--- NOTE | 2024-09-23 09:41 | MHC.RECOVRN ---
AUDIT-C Brief Intervention Pt had positive screen for unhealthy alcohol use on admission. Attempted to meet with pt to discuss alcohol use and offer resources, pt declined.
--- NOTE | 2024-09-23 13:32 | MHC.CLN ---
NUTRITION CONSULT VISITED WITH PATIENT IN HIS ROOM. BMI=16.7, UNDERWEIGHT. AGREES TO ENSURE TID. SUPPLEMENT PROVIDES 1050 KCALS, 60 G PROTEIN. ENCOURAGE INTAKE AT MEALS AND SNACKS ABLE.
[2024-09-23 20:00] VITALS: BP 123/69; PULSE 95; RESP 16; TEMP 36.8; O2SAT 100
[2024-09-23] MEDS: Melatonin 3 MG TABLET 9 MG PO (21:56)
[2024-09-23] MEDS: Mirtazapine 15 MG TABLET PO (21:56)
[2024-09-24 07:00] VITALS: BMI 16.9
[2024-09-24 07:31] VITALS: BP 128/90; PULSE 73; RESP 18; TEMP 36.4; O2SAT 97
[2024-09-24] MEDS: Cholecalciferol (Vitamin D3) 10 MCG TABLET 20 MCG PO (08:13)
[2024-09-24] MEDS: OXcarbazepine 150 MG TABLET PO ×2 (08:13→22:06)
[2024-09-24] MEDS: Thiamine HCL 100 MG TABLET PO (08:13)
--- NOTE | 2024-09-24 11:06 | P.PNPSI_ITS ---
Subjective Subjective Date of Service: 09/24/24 Reason For Visit: CRISIS Subjective Notes: Conditional Voluntary Interim History: Active on unit, social with peers. attending groups. Patient continues to report feeling depressed; states he is trying to stay out of his room and attend all groups. denies withdrawal symptoms; CIWA D/C'd. per nursing slept 7 hours. denies SI/HI/VH. He reports mumbles of auditory hallucinations; encouraged to utilize PRN's if needed. Medication Compliance: Yes Side effects from medications: No Attending Groups: Yes Mental Status Exam Mental Status Exam Narrative: Pt is alert and oriented; behavior is cooperative and calm; dressed in casual attire; mood is described as depressed ; eye contact appropriate; Speech is normal rate, volume and not pressured; thought process is organized; Thought content is on tx; denies SI/HI/VH. Patient reports auditory hallucinations of mumbles . Diagnostics Vital Signs (24Hr): Vital Signs - 24 hr 09/23/24 20:00 09/24/24 07:31 Temperature 98.3 F 97.6 F Pulse Rate 95 73 Respiratory Rate 16 18 Blood Pressure 123/69 128/90 H Pulse Oximetry 100 97 Oxygen Delivery Method Room Air Room Air BMI result Body Mass Index 16.7 Labs 09/21/24 08:19 09/22/24 15:05 Labs: Laboratory Results - last 48 hr 09/22/24 09/23/24 15:05 08:07 Hold Purple Top SEE NOTE Sodium 141 Potassium 4.6 D Chloride 108 Carbon Dioxide 27 Anion Gap 11 L BUN 8 L Creatinine 0.86 Estim Creat Clear Calc 110.3 Estimated GFR > 60 Random Glucose 104 Estimat Average Glucose 100 Hemoglobin A1c % 5.1 Calcium 8.9 Total Bilirubin 0.7 AST 26 ALT 27 Alkaline Phosphatase 83 Total Protein 6.7 Albumin 4.3 Triglycerides 177 H Cholesterol 169 LDL Cholesterol, Calc 62 HDL Cholesterol 72 Hold Red Top See Note Medications Medications Current Medications Acetaminophen (Acetaminophen 325 Mg Tablet) 650 mg PO Q6H PRN PRN Reason: Headache/Pain, Scale 1-10 Al Hydroxide/Mg Hydroxide (Magnesium Hydrox/Alum Hydrox 30 Ml Oral.Susp) 30 ml PO Q6H PRN PRN Reason: Heartburn/Nausea Hydroxyzine HCl (Hydroxyzine Hcl 25 Mg Tablet) 25 mg PO Q6H PRN PRN Reason: mild anxiety Magnesium Hydroxide (Milk Of Magnesia 30 Ml Oral.Susp) 30 ml PO DAILY PRN PRN Reason: Constipation Melatonin (Melatonin 3 Mg Tablet) 9 mg PO BEDTIME [facility] Last Admin: 09/23/24 21:56 Dose: 9 mg Mirtazapine (Mirtazapine 15 Mg Tablet) 15 mg PO BEDTIME [facility] Last Admin: 09/23/24 21:56 Dose: 15 mg Nicotine Polacrilex (Nicotine Polacrilex 2 Mg Gum) 4 mg BUCCAL Q2H PRN PRN Reason: Nicotine Cravings Oxcarbazepine (Oxcarbazepine 150 Mg Tablet) 150 mg PO BID [facility] Last Admin: 09/24/24 08:13 Dose: 150 mg Propranolol HCl (Propranolol Hcl 10 Mg Tablet) 10 mg PO DAILY PRN; Protocol PRN Reason: Anxiety Trazodone HCl (Trazodone Hcl 50 Mg Tablet) 50 mg PO BEDTIME MRX1 PRN PRN Reason: Insomnia Vitamin D (Cholecalciferol (Vitamin D3) 10 Mcg Tablet) 20 mcg PO DAILY [facility] Last Admin: 09/24/24 08:13 Dose: 20 mcg Allergies Allergies Allergy/AdvReac Type Severity Reaction Status Date / Time minocycline [MINOCYCLINE] Allergy Unknown URINATE Verified 09/21/24 08:09 BLOOD Assessment & Plan Assessment & Plan (1) MDD (major depressive disorder), recurrent episode, moderate: Status: Resolved Code(s): F33.1 - Major depressive disorder, recurrent, moderate (2) Homelessness: Status: Acute Code(s): Z59.00 - Homelessness unspecified (3) Cocaine use disorder: Status: Acute Code(s): F14.10 - Cocaine abuse, uncomplicated Plan Patient is a 29-year-old male with history of MDD who presented to ER after being found unresponsive in his car in a suicide attempt secondary to increased life stressors. Plan: CV 15 minute safety checks Obtain collateral Continue home medications CIWA Encourage groups Referral to outpatient psychiatric providers Discharge planning 09/23: denies withdrawal symptoms. reports feeling tired. encouraged to attend groups. continue current tx plan. 09/24: Active on unit, social with peers. attending groups. Patient continues to report feeling depressed; states he is trying to stay out of his room and attend all groups. denies withdrawal symptoms; CIWA D/C'd. per nursing slept 7 hours. denies SI/HI/VH. He reports mumbles of auditory hallucinations; encouraged to utilize PRN's if needed. Patient educated on: diagnosis, medication risk/benefits and therapeutic strategies Reason for continued inpatient stay Substantial Risk for: med/psych decompensation Time Spent With Patient Time: Total time managing care of this patient today _20___ minutes.
[2024-09-24 19:16] VITALS: BP 128/85; PULSE 87; RESP 16; TEMP 37.2; O2SAT 97
[2024-09-24] MEDS: Melatonin 3 MG TABLET 9 MG PO (22:06)
[2024-09-24] MEDS: Mirtazapine 15 MG TABLET PO (22:06)
[2024-09-25 07:46] VITALS: BP 107/57; PULSE 81; RESP 16; TEMP 36.7; O2SAT 99
[2024-09-25] MEDS: OXcarbazepine 150 MG TABLET PO ×2 (08:48→21:29)
[2024-09-25] MEDS: Cholecalciferol (Vitamin D3) 10 MCG TABLET 20 MCG PO (08:48)
--- NOTE | 2024-09-25 08:55 | P.PNPSI_ITS ---
Subjective Subjective Date of Service: 09/25/24 Reason For Visit: CRISIS Subjective Notes: Conditional Voluntary Interim History: Patient reports feeling alright today; pt stated, the medications are good and I'm sleeping much better . Patient reports he is hoping to obtain a bed at [facility]. denies SI/HI/VH/AH. Medication Compliance: Yes Side effects from medications: No Attending Groups: Yes Mental Status Exam Mental Status Exam Narrative: Pt is alert and oriented; behavior is cooperative and calm; dressed in casual attire; mood is described as alright ; eye contact appropriate; Speech is normal rate, volume and not pressured; thought process is organized; Thought content is on tx; denies SI/HI/VH/AH. Diagnostics Vital Signs (24Hr): Vital Signs - 24 hr 09/24/24 19:16 09/25/24 07:46 Temperature 98.9 F 98.0 F Pulse Rate 87 81 Respiratory Rate 16 16 Blood Pressure 128/85 107/57 L Pulse Oximetry 97 99 Oxygen Delivery Method Room Air Room Air BMI result Body Mass Index 16.9 Labs 09/21/24 08:19 09/22/24 15:05 Medications Medications Current Medications Acetaminophen (Acetaminophen 325 Mg Tablet) 650 mg PO Q6H PRN PRN Reason: Headache/Pain, Scale 1-10 Al Hydroxide/Mg Hydroxide (Magnesium Hydrox/Alum Hydrox 30 Ml Oral.Susp) 30 ml PO Q6H PRN PRN Reason: Heartburn/Nausea Hydroxyzine HCl (Hydroxyzine Hcl 25 Mg Tablet) 25 mg PO Q6H PRN PRN Reason: mild anxiety Magnesium Hydroxide (Milk Of Magnesia 30 Ml Oral.Susp) 30 ml PO DAILY PRN PRN Reason: Constipation Melatonin (Melatonin 3 Mg Tablet) 9 mg PO BEDTIME [facility] Last Admin: 09/24/24 22:06 Dose: 9 mg Mirtazapine (Mirtazapine 15 Mg Tablet) 15 mg PO BEDTIME [facility] Last Admin: 09/24/24 22:06 Dose: 15 mg Nicotine Polacrilex (Nicotine Polacrilex 2 Mg Gum) 4 mg BUCCAL Q2H PRN PRN Reason: Nicotine Cravings Olanzapine (Olanzapine 5 Mg Tablet) 5 mg PO Q4H PRN PRN Reason: agitation/psychosis Oxcarbazepine (Oxcarbazepine 150 Mg Tablet) 150 mg PO BID [facility] Last Admin: 09/25/24 08:48 Dose: 150 mg Propranolol HCl (Propranolol Hcl 10 Mg Tablet) 10 mg PO DAILY PRN; Protocol PRN Reason: Anxiety Trazodone HCl (Trazodone Hcl 50 Mg Tablet) 50 mg PO BEDTIME MRX1 PRN PRN Reason: Insomnia Vitamin D (Cholecalciferol (Vitamin D3) 10 Mcg Tablet) 20 mcg PO DAILY [place] Last Admin: 09/25/24 08:48 Dose: 20 mcg Allergies Allergies Allergy/AdvReac Type Severity Reaction Status Date / Time minocycline [MINOCYCLINE] Allergy Unknown URINATE Verified 09/21/24 08:09 BLOOD Assessment & Plan Assessment & Plan (1) MDD (major depressive disorder), recurrent episode, moderate: Status: Resolved Code(s): F33.1 - Major depressive disorder, recurrent, moderate (2) Homelessness: Status: Acute Code(s): Z59.00 - Homelessness unspecified (3) Cocaine use disorder: Status: Acute Code(s): F14.10 - Cocaine abuse, uncomplicated Plan Patient is a 29-year-old male with history of MDD who presented to ER after being found unresponsive in his car in a suicide attempt secondary to increased life stressors. Plan: CV 15 minute safety checks Obtain collateral Continue home medications CIWA Encourage groups Referral to outpatient psychiatric providers Discharge planning 09/23: denies withdrawal symptoms. reports feeling tired. encouraged to attend groups. continue current tx plan. 09/24: Active on unit, social with peers. attending groups. Patient continues to report feeling depressed; states he is trying to stay out of his room and attend all groups. denies withdrawal symptoms; CIWA D/C'd. per nursing slept 7 hours. denies SI/HI/VH. He reports mumbles of auditory hallucinations; encouraged to utilize PRN's if needed. 09/25: Patient reports feeling alright today; pt stated, the medications are good and I'm sleeping much better . Patient reports he is hoping to obtain a bed at [facility]. denies SI/HI/VH/AH. Continue current tx plan Patient educated on: diagnosis, medication risk/benefits and therapeutic strategies Reason for continued inpatient stay Substantial Risk for: med/psych decompensation Time Spent With Patient Time: Total time managing care of this patient today _20___ minutes.
[2024-09-25 17:33] LABS: Oxcarbazepine 14.4 mcg/mL (8.0-35.0)
[2024-09-25 20:35] VITALS: BP 123/67; PULSE 98; RESP 16; TEMP 36.9; O2SAT 98
[2024-09-25] MEDS: Melatonin 3 MG TABLET 9 MG PO (21:29)
[2024-09-25] MEDS: Mirtazapine 15 MG TABLET PO (21:29)
[2024-09-26 07:51] VITALS: BP 102/55; PULSE 70; RESP 16; TEMP 36.4; O2SAT 99
[2024-09-26] MEDS: Cholecalciferol (Vitamin D3) 10 MCG TABLET 20 MCG PO (09:07)
[2024-09-26] MEDS: OXcarbazepine 150 MG TABLET PO ×2 (09:07→21:42)
[2024-09-26 09:13] VITALS: BP 113/65; PULSE 79
[2024-09-26] MEDS: Propranolol HCL 10 MG TABLET PO ×2 (09:13→21:42)
--- NOTE | 2024-09-26 13:41 | HO.PSYCHPN ---
Subjective Subjective Date of Service: 09/26/24 Reason For Visit: CRISIS Interim History: Patient reports he was aggravated because he had an unwanted visitor yesterday. He put him on the no visitor list. He feels the propranolol helps his anxiety. He is overall feeling better. Sleep is good. Denies SI/HI/VH/AH. Review of Systems Review of Systems Yes Unobtainable due to mental status Mental Status Exam Mental Status Exam Narrative: Pt is alert and oriented; behavior is cooperative and calm; dressed in casual attire; mood is described as alright ; eye contact appropriate; Speech is normal rate, volume and not pressured; thought process is organized; Thought content is on tx; denies SI/HI/VH/AH. Diagnostics Vital Signs (24Hr): Vital Signs - 24 hr 09/25/24 20:35 09/26/24 07:51 09/26/24 09:13 Temperature 98.5 F 97.6 F Pulse Rate 98 70 79 Respiratory Rate 16 16 Blood Pressure 123/67 102/55 L 113/65 Pulse Oximetry 98 99 Oxygen Delivery Method Room Air Room Air BMI result Body Mass Index 16.9 Labs 09/21/24 08:19 09/22/24 15:05 Labs: Laboratory Results - last 48 hr 09/21/24 08:19 Oxcarbazepine 14.4 Medications Medications Current Medications Acetaminophen (Acetaminophen 325 Mg Tablet) 650 mg PO Q6H PRN PRN Reason: Headache/Pain, Scale 1-10 Al Hydroxide/Mg Hydroxide (Magnesium Hydrox/Alum Hydrox 30 Ml Oral.Susp) 30 ml PO Q6H PRN PRN Reason: Heartburn/Nausea Hydroxyzine HCl (Hydroxyzine Hcl 25 Mg Tablet) 25 mg PO Q6H PRN PRN Reason: mild anxiety Magnesium Hydroxide (Milk Of Magnesia 30 Ml Oral.Susp) 30 ml PO DAILY PRN PRN Reason: Constipation Melatonin (Melatonin 3 Mg Tablet) 9 mg PO BEDTIME [facility] Last Admin: 09/25/24 21:29 Dose: 9 mg Mirtazapine (Mirtazapine 15 Mg Tablet) 15 mg PO BEDTIME [place] Last Admin: 09/25/24 21:29 Dose: 15 mg Nicotine Polacrilex (Nicotine Polacrilex 2 Mg Gum) 4 mg BUCCAL Q2H PRN PRN Reason: Nicotine Cravings Olanzapine (Olanzapine 5 Mg Tablet) 5 mg PO Q4H PRN PRN Reason: agitation/psychosis Oxcarbazepine (Oxcarbazepine 150 Mg Tablet) 150 mg PO BID [facility] Last Admin: 09/26/24 09:07 Dose: 150 mg Propranolol HCl (Propranolol Hcl 10 Mg Tablet) 10 mg PO DAILY PRN; Protocol PRN Reason: Anxiety Last Admin: 09/26/24 09:13 Dose: 10 mg Trazodone HCl (Trazodone Hcl 50 Mg Tablet) 50 mg PO BEDTIME MRX1 PRN PRN Reason: Insomnia Vitamin D (Cholecalciferol (Vitamin D3) 10 Mcg Tablet) 20 mcg PO DAILY [facility] Last Admin: 09/26/24 09:07 Dose: 20 mcg Allergies Allergies Allergy/AdvReac Type Severity Reaction Status Date / Time minocycline [MINOCYCLINE] Allergy Unknown URINATE Verified 09/21/24 08:09 BLOOD Assessment & Plan Assessment & Plan (1) MDD (major depressive disorder), recurrent episode, moderate: Status: Resolved Code(s): F33.1 - Major depressive disorder, recurrent, moderate (2) Homelessness: Status: Acute Code(s): Z59.00 - Homelessness unspecified (3) Cocaine use disorder: Status: Acute Code(s): F14.10 - Cocaine abuse, uncomplicated Plan Patient is a 29-year-old male with history of MDD who presented to ER after being found unresponsive in his car in a suicide attempt secondary to increased life stressors. Plan: CV 15 minute safety checks Obtain collateral Continue home medications CIWA Encourage groups Referral to outpatient psychiatric providers Discharge planning 09/23: denies withdrawal symptoms. reports feeling tired. encouraged to attend groups. continue current tx plan. 09/24: Active on unit, social with peers. attending groups. Patient continues to report feeling depressed; states he is trying to stay out of his room and attend all groups. denies withdrawal symptoms; CIWA D/C'd. per nursing slept 7 hours. denies SI/HI/VH. He reports mumbles of auditory hallucinations; encouraged to utilize PRN's if needed. 09/25: Patient reports feeling alright today; pt stated, the medications are good and I'm sleeping much better . Patient reports he is hoping to obtain a bed at [facility]. denies SI/HI/VH/AH. Continue current tx plan 09/26: Improving. Continue current management and treatment plan. Reason for continued inpatient stay Substantial Risk for: harm to self and rapid decompensation Time Spent With Patient Time: Total time managing care of this patient today ____ minutes.
[2024-09-26 19:30] VITALS: BP 111/76; PULSE 88; RESP 17; TEMP 37.1; O2SAT 97
[2024-09-26] MEDS: Mirtazapine 15 MG TABLET PO (21:41)
[2024-09-26] MEDS: Nicotine Polacrilex 2 MG GUM 4 MG BUCCAL (21:41)
[2024-09-26 21:42] VITALS: BP 132/74; PULSE 85
[2024-09-26] MEDS: Melatonin 3 MG TABLET 9 MG PO (21:42)
[2024-09-27 08:30] VITALS: BP 129/69; PULSE 94; RESP 17; TEMP 36.8; O2SAT 100
[2024-09-27] MEDS: Cholecalciferol (Vitamin D3) 10 MCG TABLET 20 MCG PO (08:35)
[2024-09-27] MEDS: OXcarbazepine 150 MG TABLET PO ×2 (08:35→20:44)
[2024-09-27 08:40] VITALS: BP 129/69; PULSE 94
[2024-09-27] MEDS: Propranolol HCL 10 MG TABLET PO (08:40)
--- NOTE | 2024-09-27 14:26 | HO.PSYCHPN ---
Subjective Subjective Date of Service: 09/27/24 Reason For Visit: CRISIS Interim History: He is feeling better but says he is anxious because he has to think about his discharge. My mind races with anxiety. Uses Propranolol for anxiety with benefit. Sleep is good. Denies SI/HI/VH/AH. Review of Systems Review of Systems Yes Unobtainable due to mental status Mental Status Exam Mental Status Exam Narrative: Pt is alert and oriented; behavior is cooperative and calm; dressed in casual attire; mood is described as alright ; eye contact appropriate; Speech is normal rate, volume and not pressured; thought process is organized; Thought content is on tx; denies SI/HI/VH/AH. Diagnostics Vital Signs (24Hr): Vital Signs - 24 hr 09/26/24 19:30 09/26/24 21:42 09/27/24 08:30 Temperature 98.7 F 98.3 F Pulse Rate 88 85 94 Respiratory Rate 17 17 Blood Pressure 111/76 132/74 129/69 Pulse Oximetry 97 100 Oxygen Delivery Method Room Air Room Air 09/27/24 08:40 Temperature Pulse Rate 94 Respiratory Rate Blood Pressure 129/69 Pulse Oximetry Oxygen Delivery Method BMI result Body Mass Index 16.9 Labs 09/21/24 08:19 09/22/24 15:05 Labs: Laboratory Results - last 48 hr 09/21/24 08:19 Oxcarbazepine 14.4 Medications Medications Current Medications Acetaminophen (Acetaminophen 325 Mg Tablet) 650 mg PO Q6H PRN PRN Reason: Headache/Pain, Scale 1-10 Al Hydroxide/Mg Hydroxide (Magnesium Hydrox/Alum Hydrox 30 Ml Oral.Susp) 30 ml PO Q6H PRN PRN Reason: Heartburn/Nausea Hydroxyzine HCl (Hydroxyzine Hcl 25 Mg Tablet) 25 mg PO Q6H PRN PRN Reason: mild anxiety Magnesium Hydroxide (Milk Of Magnesia 30 Ml Oral.Susp) 30 ml PO DAILY PRN PRN Reason: Constipation Melatonin (Melatonin 3 Mg Tablet) 9 mg PO BEDTIME [place] Last Admin: 09/26/24 21:42 Dose: 9 mg Mirtazapine (Mirtazapine 15 Mg Tablet) 15 mg PO BEDTIME [place] Last Admin: 09/26/24 21:41 Dose: 15 mg Nicotine Polacrilex (Nicotine Polacrilex 2 Mg Gum) 4 mg BUCCAL Q2H PRN PRN Reason: Nicotine Cravings Last Admin: 09/26/24 21:41 Dose: 4 mg Olanzapine (Olanzapine 5 Mg Tablet) 5 mg PO Q4H PRN PRN Reason: agitation/psychosis Oxcarbazepine (Oxcarbazepine 150 Mg Tablet) 150 mg PO BID [facility] Last Admin: 09/27/24 08:35 Dose: 150 mg Propranolol HCl (Propranolol Hcl 10 Mg Tablet) 10 mg PO DAILY PRN; Protocol PRN Reason: Anxiety Last Admin: 09/27/24 08:40 Dose: 10 mg Trazodone HCl (Trazodone Hcl 50 Mg Tablet) 50 mg PO BEDTIME MRX1 PRN PRN Reason: Insomnia Vitamin D (Cholecalciferol (Vitamin D3) 10 Mcg Tablet) 20 mcg PO DAILY [facility] Last Admin: 09/27/24 08:35 Dose: 20 mcg Allergies Allergies Allergy/AdvReac Type Severity Reaction Status Date / Time minocycline [MINOCYCLINE] Allergy Unknown URINATE Verified 09/21/24 08:09 BLOOD Assessment & Plan Assessment & Plan (1) MDD (major depressive disorder), recurrent episode, moderate: Status: Resolved Code(s): F33.1 - Major depressive disorder, recurrent, moderate (2) Homelessness: Status: Acute Code(s): Z59.00 - Homelessness unspecified (3) Cocaine use disorder: Status: Acute Code(s): F14.10 - Cocaine abuse, uncomplicated Plan Patient is a 29-year-old male with history of MDD who presented to ER after being found unresponsive in his car in a suicide attempt secondary to increased life stressors. Plan: CV 15 minute safety checks Obtain collateral Continue home medications [place] Encourage groups Referral to outpatient psychiatric providers Discharge planning 09/23: denies withdrawal symptoms. reports feeling tired. encouraged to attend groups. continue current tx plan. 09/24: Active on unit, social with peers. attending groups. Patient continues to report feeling depressed; states he is trying to stay out of his room and attend all groups. denies withdrawal symptoms; CIWA D/C'd. per nursing slept 7 hours. denies SI/HI/VH. He reports mumbles of auditory hallucinations; encouraged to utilize PRN's if needed. 09/25: Patient reports feeling alright today; pt stated, the medications are good and I'm sleeping much better . Patient reports he is hoping to obtain a bed at [facility]. denies SI/HI/VH/AH. Continue current tx plan 09/26: Improving. Continue current management and treatment plan. 09/27: Continue current management and treatment plan. Reason for continued inpatient stay Substantial Risk for: harm to self, inability to function and rapid decompensation Time Spent With Patient Time: Total time managing care of this patient today ____ minutes.
[2024-09-27 20:00] VITALS: BP 129/74; PULSE 85; RESP 16; TEMP 36.8; O2SAT 100
[2024-09-27] MEDS: Nicotine Polacrilex 2 MG GUM 4 MG BUCCAL (20:13)
[2024-09-27] MEDS: traZODone HCL 50 MG TABLET PO (22:10)
[2024-09-27] MEDS: Mirtazapine 15 MG TABLET PO (22:10)
[2024-09-28 06:25] VITALS: BP 108/55; PULSE 75; RESP 16; TEMP 36.5; O2SAT 97
[2024-09-28 08:34] VITALS: BP 108/58; PULSE 75; RESP 16; TEMP 36.5; O2SAT 97
[2024-09-28] MEDS: OXcarbazepine 150 MG TABLET PO (08:35)
[2024-09-28] MEDS: Cholecalciferol (Vitamin D3) 10 MCG TABLET 20 MCG PO (08:35)
--- NOTE | 2024-09-28 10:13 | PM.PSYDC ---
DS: Providers Provider Date of Service: 09/28/24 Date of admission: 09/22/24 11:55 Date of discharge: 09/28/24 Primary care physician: [facility] Admitting clinician: Krupa Trujillo Attending physician on admission: Willie Hinton Consults: 09/22/24 16:44 Addiction Medicine Provider Routine Consulting Provider: Addiction Covering Reason for consultation: tox positive for THC and Cocaine Attending physician on discharge: Willie Hinton Discharging clinician: Krupa Trujillo DS: Diagnosis Discharge Diagnosis (1) MDD (major depressive disorder), recurrent episode, moderate: Status: Acute (2) Homelessness: Status: Acute (3) Cocaine use disorder: Status: Acute DS: Medications Discharge Medications Home Medications: Home Medications ?Medication ?Instructions ?Recorded ?Confirmed melatonin 10 mg tablet 10 mg PO BEDTIME PRN Sleep 09/06/21 09/22/24 propranolol 10 mg tablet 10 mg PO DAILY PRN Anxiety 09/06/21 09/22/24 cholecalciferol (vitamin D3) 10 20 mcg PO DAILY 09/22/24 09/22/24 mcg (400 unit) tablet (Vitamin D3) mirtazapine 15 mg tablet 15 mg PO BEDTIME PRN 09/22/24 09/22/24 Anxiety/Depression/Sleep Previous Rx's ?Medication ?Instructions ?Recorded escitalopram oxalate 10 mg tablet 10 mg PO DAILY 30 days #30 tabs 09/13/21 oxcarbazepine 150 mg tablet 150 mg PO BID 30 days #60 tabs 09/13/21 Mental Status Exam Mental Status Exam Narrative: Pt is alert and oriented; behavior is cooperative and calm; dressed in casual attire; mood is described as good ; eye contact appropriate; Speech is normal rate, volume and not pressured; thought process is organized; Thought content is on discharge; denies SI/HI/VH/AH. Data Data Completed and Pending Completed studies during hospitalization [Text1]: 09/21/24 09/21/24 09/21/24 08:19 15:53 22:01 Hold Purple Top Sodium 143 Potassium 3.8 Chloride 111 H Carbon Dioxide 25 Anion Gap 11 L BUN 8 L Creatinine 0.76 Estim Creat Clear Calc 124.8 Estimated GFR > 60 Random Glucose 89 Estimat Average Glucose Hemoglobin A1c % Calcium 8.6 Total Bilirubin 1.4 H AST 28 ALT 26 Alkaline Phosphatase 70 Total Protein 6.1 L Albumin 3.9 Triglycerides Cholesterol LDL Cholesterol, Calc HDL Cholesterol Hold Red Top Urine Color Yellow Urine Appearance Clear Urine pH 7.0 Ur Specific [place] 1.015 Urine Protein Negative Urine Glucose (UA) Negative Urine Ketones Negative Urine Blood Negative Urine Nitrite Negative Ur Leukocyte Esterase Negative Urine Opiates Screen Not Detected Ur Buprenorphine Scrn Not Detected Ur Oxycodone Screen Not Detected Urine Methadone Screen Not Detected Urine Fentanyl Screen Not Detected Ur Barbiturates Screen Not Detected Oxcarbazepine 14.4 Ur Phencyclidine Scrn Not Detected Ur Amphetamines Screen Not Detected U Benzodiazepines Scrn Not Detected Urine Cocaine Screen POSITIVE H U Marijuana (THC) Screen Not Detected 09/22/24 09/23/24 15:05 08:07 Hold Purple Top SEE NOTE Sodium 141 Potassium 4.6 D Chloride 108 Carbon Dioxide 27 Anion Gap 11 L BUN 8 L Creatinine 0.86 Estim Creat Clear Calc 110.3 Estimated GFR > 60 Random Glucose 104 Estimat Average Glucose 100 Hemoglobin A1c % 5.1 Calcium 8.9 Total Bilirubin 0.7 AST 26 ALT 27 Alkaline Phosphatase 83 Total Protein 6.7 Albumin 4.3 Triglycerides 177 H Cholesterol 169 LDL Cholesterol, Calc 62 HDL Cholesterol 72 Hold Red Top See Note Urine Color Urine Appearance Urine pH Ur Specific [place] Urine Protein Urine Glucose (UA) Urine Ketones Urine Blood Urine Nitrite Ur Leukocyte Esterase Urine Opiates Screen Ur Buprenorphine Scrn Ur Oxycodone Screen Urine Methadone Screen Urine Fentanyl Screen Ur Barbiturates Screen Oxcarbazepine Ur Phencyclidine Scrn Ur Amphetamines Screen U Benzodiazepines Scrn Urine Cocaine Screen U Marijuana (THC) Screen DS: Summary Hospital Course Hospital Course: Patient is a 29-year-old male with history of MDD who presented to ER after being found unresponsive in his car in a suicide attempt secondary to increased life stressors. Per crisis report, patient was found unresponsive in his car and was administered Narcan. Patient had overdosed on oxcarbazepine. Patient reports he had been living with a friend until a few days ago and has been living in his car since. Patient expressed feelings of helplessness and hopelessness. patient continued to endorse suicidal ideation. denies HI. He reports hx of experiencing AH/VH. hx of 2 prior inpatient psychiatric admissions. hx of SA via overdose on medications. does not have outpatient psychiatric providers. Patient reports smoking marijuana daily and hx of cocaine use. Utox positive for cocaine and BAL 124. Patient reports multiple stressors such as homelessness, court hearing related to B&E. During admission assessment, patient presents alert and oriented x3. Calm and cooperative. Patient reports feeling depressed; patient stated, I have a lot going on right now. I'm alone. I only have my best friend. I don't have anywhere to go. I'd rather be with my mom (who ) than struggling . Pt reports suicidal ideation with no plan. denies HI/VH/AH. Patient reports auditory and visual hallucinations at times but did not go into detail. He denies substance use, despite his utox being positive for alcohol and cocaine. Pt states he has not been medication compliant for the past two months; pt stated, I just started retaking my meds 2 days ago . Plan: CV 15 minute safety checks Obtain collateral Continue home medications CIWA Encourage groups Referral to outpatient psychiatric providers Discharge planning denies withdrawal symptoms. reports feeling tired. encouraged to attend groups. continue current tx plan. Active on unit, social with peers. attending groups. Patient continues to report feeling depressed; states he is trying to stay out of his room and attend all groups. denies withdrawal symptoms; CIWA D/C'd. per nursing slept 7 hours. denies SI/HI/VH. He reports mumbles of auditory hallucinations; encouraged to utilize PRN's if needed. Patient reports feeling alright today; pt stated, the medications are good and I'm sleeping much better . Patient reports he is hoping to obtain a bed at [facility]. denies SI/HI/VH/AH. Continue current tx plan Improving. Continue current management and treatment plan. Patient reports feeling good and ready to leave; pt plans on going to [facility]. denies SI/HI/VH/AH. Patient plans on following up with outpatient providers. Status at Discharge Cognitive/behavioral status at discharge: Patient has insight and demonstrates good judgment in terms of wanting to pursue treatment. Patient has a safety plan that includes presenting to the closest ER or calling 911 if feeling unsafe. Functional status at discharge: independent ambulation Overall status at discharge: patient is back to baseline Time Spent with Patient Time attestation: Total time managing care of this patient today _20___ minutes. Time spent: Less than 30 minutes Discharge Plan Discharge Anticipated Discharge Date/Time: 09/28/24 11:30 Patient Disposition: Home, Self-Care Discharge Diagnosis: MDD, cocaine use d/o Referrals: [facility] outpatient services [Other] - 1 Week (You have been referred to [facility] for outpatient services. Call to follow up with them and to obtain appointments. ) Ltaoya Torres NP [Nurse Practitioner] - 10/07/24 2:00 pm (09-28-24 Your follow up appt has been scheduled for 10-07-24 @ 2pm. This visit requires 30 minutes min. Your next telehealth visit is on 10-02-24 @ 7:15am can not be combined at this time although a message was sent to the doctor to ask if it can be.) Discharge Medications: New mirtazapine 15 mg Tablet 15 mg PO BEDTIME 30 Days Qty: 30 0RF Continued oxcarbazepine 150 mg Tablet 150 mg PO BID 30 Days Qty: 60 0RF propranolol 10 mg Tablet 10 mg PO DAILY PRN (Reason: Anxiety) 30 Days Qty: 30 0RF cholecalciferol (vitamin D3) [Vitamin D3] 10 mcg (400 unit) tablet 20 mcg PO DAILY 30 Days Qty: 60 0RF melatonin 10 mg Tablet 10 mg PO BEDTIME PRN (Reason: Sleep) 30 Days Qty: 30 0RF Discontinued escitalopram oxalate 10 mg Tablet 10 mg PO DAILY 30 Days Qty: 30 0RF mirtazapine 15 mg tablet 15 mg PO BEDTIME PRN (Reason: Anxiety/Depression/Sleep) Discharge Orders: Discharge Order (Routine); Ordered 09/28/24 Ordered By: Krupa Trujillo Diet: Regular diet Activity on Discharge: As tolerated Stand Alone Forms: Patient Portal Discharge page, Community Support Print Language: B[place] Care Plan Goals: Maintain mood and safe behaviors Take medications as prescribed Continue to pursue sobriety Practice coping skills Continue with outpatient providers and reach out to them as needed Health Concerns: Mood stability and behaviors Sobriety Plan of Treatment: Follow up with your PCP, psychiatric provider and other outpatient providers regarding above concerns Take medications as prescribed Assessment: Patient has insight and demonstrates good judgment in terms of wanting to pursue treatment. Patient has a safety plan that includes presenting to the closest ER or calling 911 if feeling unsafe.
[2024-09-28] MEDS: Naloxone HCl Nasal TAKE HOME 4 MG SPRAY 8 MG NOSTRILALT (11:33)
== END 2024-09-28 12:18 | disposition home or self-care (01) | DRG 751 ==
LOC: HO.ED 09-22 10:49 → HO.PADLT16 09-22 12:07
PROVIDERS: Admitting Provider Registered Nurse; Emergency Provider Emergency Medicine; Responsible Provider Registered Nurse; Visit Provider Psychiatry & Neurology Psychiatry
DX: F33.1 Major depressive disorder, recurrent, moderate (principal); F14.10 Cocaine abuse, uncomplicated; F17.210 Nicotine dependence, cigarettes, uncomplicated; Z71.6 Tobacco abuse counseling; Z59.02 Unsheltered homelessness; Y90.6 Blood alcohol level of 120-199 mg/100 ml; T42.1X2A Poisoning by iminostilbenes, intentional self-harm, initial encounter; Z79.899 Other long term (current) drug therapy
CPT/HCPCS: 36415; 80053; 80061; 80143; 80179; 80307; 80339; 81003; 82803; 83036; 85025; 93005; 99285; J7120; S9485

== ENCOUNTER → 2024-09-21 07:57 | Outpatient (BNV) | payer MEDICAID, SELFPAY | PROVIDERS: Emergency Provider Emergency Medicine; Visit Provider Internal Medicine | DX: T40.602A Poisoning by unspecified narcotics, intentional self-harm, initial encounter (principal) | CPT/HCPCS: 93010 ==

== ENCOUNTER → 2024-09-22 11:55 | Outpatient (BNV) | payer OTHER, SELFPAY | PROVIDERS: Admitting Provider Registered Nurse; Emergency Provider Emergency Medicine; Visit Provider Registered Nurse | DX: F33.1 Major depressive disorder, recurrent, moderate (principal); F14.10 Cocaine abuse, uncomplicated; Z59.00 Homelessness unspecified | CPT/HCPCS: 99231; 99233 ==

== ENCOUNTER 2024-10-07 15:16 | Outpatient (REF) | payer OTHER, SELFPAY ==
[2024-10-07 16:16] LABS: MANUAL DIFF FLAG NO
[2024-10-07 16:20] LABS: Basophils Absolute Auto 0.1 X10*3/uL (0.0-0.2); Eosinophils Absolute Auto 0.1 X10*3/uL (0.0-0.4); Hematocrit 45.5 % (42.0-52.0); Hemoglobin 14.8 g/dl (14.0-18.0); Imm Gran Abs Auto 0.02 X10*3/uL (0.00-0.03); Imm Gran Pct Auto 0.4 % (0.0-0.4); Lymphocytes Absolute Auto 1.8 X10*3/uL (1.2-4.9); Lymphocytes Percent Auto 35.8 % (20-40); Mean Corpuscular HGB Conc 32.5 g/dl (31.0-36.0); Mean Corpuscular Hemoglobin 30.3 pg (27.0-33.0); Mean Platelet Volume 9.1 fL (9.4-12.4); Monocytes Absolute Auto 0.5 X10*3/uL (0.1-1.2); Monocytes Percent Auto 9.6 % (2-11); Neutrophils Absolute Auto 2.6 x10*3/uL (2.0-8.3); Neutrophils Percent Auto 51.2 % (45-73); Platelet Count 295 X10*3/uL (160-400); Red Blood Count 4.89 X10*6/uL (4.60-5.80); Red Cell Distribution Width 13.4 % (11.0-16.0); White Blood Count 5.1 X10*3/uL (4.8-10.8)
[2024-10-07 16:27] LABS: Estimated Average Glucose 97 mg/dL; Total Hemoglobin (HGBA1C) 3907.0233 umol/L
[2024-10-07 16:52] LABS: Anion Gap 10 (12-20); Blood Urea Nitrogen 9 mg/dL (9-16); Calcium 9.3 mg/dL (8.4-10.2); Carbon Dioxide 28 mmol/L (22-29); Chloride 105 mmol/L (96-108); Cholesterol 158 mg/dL (<200); Estimated Glomerular Filt Rate > 60; Glucose Random 76 mg/dL (60-115); HDL Cholesterol 75 mg/dL (>40); LDL Cholesterol Calculated 72 mg/dL (<100); Potassium 4.3 mmol/L (3.3-5.1); Sodium 139 mmol/L (135-145); Triglycerides 55 mg/dL (<150)
== END 2024-10-07 15:17 | disposition home or self-care (01) ==
LOC: HO.HHCL 15:16
DX: R53.83 Other fatigue (principal); F41.8 Other specified anxiety disorders; Z00.00 Encounter for general adult medical examination without abnormal findings
CPT/HCPCS: 36415; 80048; 80061; 83036; 85025

== ENCOUNTER 2024-10-28 18:48 | Inpatient (IN) | payer OTHER, SELFPAY ==
[2024-10-28 19:10] VITALS: BP 121/78; PULSE 108; RESP 14; TEMP 36.6; O2SAT 98; BMI 23.5
--- NOTE | 2024-10-28 19:45 | ED_ITS ---
HPI - Psych General Chief Complaint: Psychiatric Symptoms Stated Complaint: SI statements Time Seen by Provider: 10/28/24 19:45 Source: patient and EMS Mode of arrival: EMS Limitations: no limitations History of Present Illness ED Provider: SUPA GONZALEZ PA-C HPI Narrative: 29 year old male with pmhx significant for JAYSON, MDD, polysubstance abuse presents to the ED today via EMS after making SI statements. Patient states that he got home around 1300 today and began taking shots of liquor. Admits to taking 5-6 shots, his last drink being around 1900 today. Admits to verbal altercation with boyfriend while intoxicated. Admits to leaving the home and texting his boyfriend SI statements. States his boyfriend found him in the [place] with a pill bottle . Denies taking any pills or attempting to OD. EMS was then called and patient was transported to the ED for further eval. He denies any SI at present. No plan. Admits to prior attempt 1 mo ago. Denies HI. Denies illicit substance use. Alan hx of etoh withdrawal. Denies AH/VH/TH. Reports compliance with all home meds. No physical complaints at present. Related Data Home Medications ?Medication ?Instructions ?Recorded ?Confirmed cholecalciferol (vitamin D3) 10 20 mcg PO DAILY 10/28/24 10/28/24 mcg (400 unit) tablet (Vitamin D3) ibuprofen 600 mg tablet 600 mg PO Q8H PRN mild pain 10/28/24 10/28/24 melatonin 10 mg capsule 10 mg PO BEDTIME PRN insomnia 10/28/24 10/28/24 mirtazapine 15 mg tablet 15 mg PO BEDTIME 10/28/24 10/28/24 oxcarbazepine 150 mg tablet 150 mg PO BID 10/28/24 10/28/24 propranolol 10 mg tablet 10 mg PO DAILY 10/28/24 10/28/24 quetiapine 50 mg tablet 50 mg PO BEDTIME 10/29/24 10/29/24 Allergies Allergy/AdvReac Type Severity Reaction Status Date / Time minocycline [MINOCYCLINE] Allergy Unknown URINATE Verified 10/28/24 19:15 BLOOD Review of Systems 2 Review of Systems: Yes all other systems are reviewed and are negative PMFSH Past Medical History Attestation statement: The following information was validated with the patient. Source: old records reviewed and nursing notes reviewed Medical History Overdose MDD (major depressive disorder), recurrent episode, moderate Conductive hearing loss Social History Social History Household Members: Friend(s) Household Members Other:: lives with mom, stepdad and brother Housing: Apartment Housing Other:: living in car Do you presently have visiting nurse or other home services: No Alcohol intake: current Patient Tobacco Use Status: Never used Tobacco Tobacco use type: Cigarette Smoked in Last 30 Days: Yes e-Cigarette/Vaping Use: Currently Using Frequency of e-Cigarette/Vaping Use: daily Patient Interested in Nicotine Replacement: Yes (prefers nicotine gum) Patient Given Instructions on How to Stop Smoking: Yes Date Education Initiated: 10/29/24 Second Hand Smoke Exposure: No Use of substances other than those prescribed or required for medical reasons: No Substance Use Type: Crack/Cocaine and Marijuana Currently Displaying Signs/Symptoms of Drug Intoxication Withdrawal: No Have you been hit, kicked, punched, or otherwise hurt by someone within the past year? If so, by whom?: No Do you feel safe in your current relationship?: No Current Relationship Is there a partner from a previous relationship who is making you feel unsafe now?: No Are you made to feel afraid or neglected: No Advance Directives: No Advance Directives Information Provided: No Do you have thoughts of harming others: None Do you have a plan to hurt others: No Plan Recently lost weight without trying: Unsure How much weight loss: Not applicable Eating poorly because of decreased appetite: No Nutrition screen score: 2 Nutrition Risks: No Nutritional Risk Poor oral hygiene: No service: No Sexual orientation: Lesbian/Tracy/Homosexual Physical Exam 2 Vital Signs: Vital Signs: Last Vital Signs Temp 99.3 F 10/30/24 20:00 Pulse 81 10/30/24 20:00 Resp 16 10/30/24 20:00 BP 144/96 H 10/30/24 20:00 Pulse Ox 100 10/30/24 20:00 O2 Del Method Room Air 10/30/24 20:00 BMI result Body Mass Index 23.5 tachycardic, vitals otherwise wnl General: appears intoxicated, odor of alcohol on breath Skin: Warm, dry, intact. No rashes or lesions. Head: Normocephalic, atraumatic. EENT: Hearing is intact b/l. Conjunctiva clear. Sclera is anicteric. PERRLA. EOM intact. Moist mucous membranes.? Cardiac: Chest wall symmetric. RRR Lungs: Normal respiratory effort without accessory muscle use. CTA bilaterally Back: No midline spinous or paraspinal tenderness. No step off deformity. Ext: Upper and lower extremities atraumatic, without tenderness, deformity, swelling or erythema Neuro: AOx3. Normal speech. CN 2-12 grossly intact. Ambulating with steady gait. Course Course Course Narrative: CBC without leukocytosis. no anemia, h&h stable. chemistry without acute electrolyte abnormality requiring intervention. no dorothea. liver function wnl. UA without infection. urine tox negative. ethanol 131. > patient medically cleared for care team eval. placed in physician observation. Medications Administered Generic Name Dose Route Start Last Admin Trade Name Freq PRN Reason Stop Dose Admin Guaifenesin 5 ml 10/30/24 16:14 10/30/24 17:15 Guaifenesin 100 Mg/5 Ml 5 Ml Liquid PO 5 ml Q6H PRN Administration Cough Mirtazapine 15 mg 10/29/24 21:00 10/30/24 20:05 Mirtazapine 15 Mg Tablet PO 15 mg BEDTIME [place] Administration Nicotine Polacrilex 4 mg 10/29/24 12:21 10/30/24 08:13 Nicotine Polacrilex 2 Mg Gum BUCCAL 4 mg Q2H PRN Administration Nicotine Cravings Oxcarbazepine 150 mg 10/29/24 09:00 10/30/24 20:04 Oxcarbazepine 150 Mg Tablet PO 150 mg BID [place] Administration Propranolol HCl 10 mg 10/29/24 09:00 10/30/24 08:09 Propranolol Hcl 10 Mg Tablet PO 10 mg DAILY [place] Administration Protocol Quetiapine Fumarate 50 mg 10/29/24 21:00 10/30/24 20:04 Quetiapine Fumarate 50 Mg Tablet PO 50 mg BEDTIME [place] Administration Thiamine HCl 100 mg 10/30/24 09:00 10/30/24 08:09 Thiamine Hcl 100 Mg Tablet PO 100 mg DAILY [place] Administration Vitamin D 20 mcg 10/29/24 09:00 10/30/24 08:09 Cholecalciferol (Vitamin D3) 10 Mcg Tablet PO 20 mcg DAILY [place] Administration Discontinued Medications Generic Name Dose Route Start Last Admin Trade Name Darcie PRN Reason Stop Dose Admin Nicotine 21 mg 10/30/24 09:00 10/30/24 08:11 Nicotine 21 Mg Patch.Td24 TRANSDERMA Not Given DAILY [place] Medical Decision Making Medical Decision Making [facility] Narrative: 29 year old male with pmhx significant for JAYSON, MDD, polysubstance abuse presents to the ED today via EMS after making SI statements. tachycardic, vitals are otherwise wnl. he appears intoxicated, odor of etoh on breath. Differential diagnosis includes anemia, electrolyte abnormality, mood disorder, anxiety, depression, SI, polysubstance abuse, etoh intoxication Presentation not consistent with acute organic causes to include delirium, dementia or drug induced disorders (acute ingestions or withdrawal; no evidence of toxidrome).? Given the H&P, I suspect this patient is suicidal and will require observation. Will consult care team to evaluate the patient. Will also obtain labs for medical clearance. Plan: labs, EKG, ASA/APAP levels, ETOH level, UDS, care team consultation, reassessment 10/29/24 0008 Vijaya Michael MD The care team evaluated the patient. Patient is not suicidal. However, the care team was able to get in touch with the patient's significant other. Patient has history of overdoses. Yesterday the patient was sitting SI statement text messages to his significant other. Plan: Reassess in the morning, section 12 Differential Diagnosis Differential Diagnoses: The differential diagnosis associated with the presentation includes as above. Admission/Observation Consideration of admission/observation: Escalation of care including admission/observation considered Lab Data [facility] Lab Attestation statement: I reviewed the patient's lab results. as above. 10/28/24 19:48 10/30/24 07:50 Labs: Lab Results 10/28/24 10/28/24 10/28/24 Range/Units 19:46 19:47 19:48 WBC 10.8 (4.8-10.8) X10*3/uL RBC 5.29 (4.60-5.80) X10*6/uL Hgb 16.0 (14.0-18.0) g/dl Hct 47.2 (42.0-52.0) % MCV 89.2 (80.0-98.0) fL MCH 30.2 (27.0-33.0) pg MCHC 33.9 (31.0-36.0) g/dl RDW 12.9 (11.0-16.0) % Plt Count 298 (160-400) X10*3/uL MPV 8.9 L (9.4-12.4) fL Immature Gran % (Auto) 0.3 (0.0-0.4) % Neut % (Auto) 73.8 H (45-73) % Lymph % (Auto) 17.4 L (20-40) % [place] % (Auto) 8.0 (2-11) % Eos % (Auto) 0.1 (0-4) % Baso % (Auto) 0.4 (0-2) % Lymph # (Auto) 1.9 (1.2-4.9) X10*3/uL [place] # (Auto) 0.9 (0.1-1.2) X10*3/uL Eos # (Auto) 0.0 (0.0-0.4) X10*3/uL Baso # (Auto) 0.0 (0.0-0.2) X10*3/uL Abs Immat Gran (auto) 0.03 (0.00-0.03) X10*3/uL Absolute Neuts (auto) 8.0 (2.0-8.3) x10*3/uL Absolute Nucleated RBC 0.000 (0.0-0.012) X10*3/uL Nucleated RBC % (auto) 0.0 (0.0-0.2) /100WBC Sodium 141 (135-145) mmol/L Potassium 4.1 (3.3-5.1) mmol/L Chloride 107 (96-108) mmol/L Carbon Dioxide 22 (22-29) mmol/L Anion Gap 16 (12-20) BUN 11 (9-16) mg/dL Creatinine 0.91 (0.5-1.4) mg/dL Estim Creat Clear Calc 112.9 Estimated GFR > 60 Random Glucose 77 (60-115) mg/dL Calcium 9.8 (8.4-10.2) mg/dL Total Bilirubin 0.7 (0.0-1.0) mg/dL AST 32 (5-37) U/L ALT 20 (0-40) U/L Alkaline Phosphatase 83 (39-117) U/L Total Protein 7.9 (6.5-8.0) g/dL Albumin 5.2 H (3.5-5.0) g/dL Urine Color Yellow Urine Appearance Clear Urine pH 5.5 (5.0-9.0) Ur Specific [place] 1.015 (1.005-1.025) Urine Protein Negative (Neg-Trace) mg/dL Urine Glucose (UA) Negative (Negative) mg/dL Urine Ketones Negative (Negative) mg/dL Urine Blood Small (1+) H (Negative) Urine Nitrite Negative (Negative) Ur Leukocyte Esterase Negative (Negative) Urine RBC 6-10 H (0-2) /HPF Urine WBC 0-5 (0-5) /HPF Ur Squamous Epith Cells 0-2 (0-2) /HPF Urine Bacteria None Seen (None Seen) Hyaline Casts 0-2 (0-2) /LPF Urine Opiates Screen Not Detected (Not Detect) Ur Buprenorphine Scrn Not Detected (Not Detect) ng/mL Ur Oxycodone Screen Not Detected (Not Detect) ng/mL Urine Methadone Screen Not Detected (Not Detect) ng/mL Urine Fentanyl Screen Not Detected (Not Detect) Ur Barbiturates Screen Not Detected (Not Detect) Ur Phencyclidine Scrn Not Detected (Not Detect) Ur Amphetamines Screen Not Detected (Not Detect) U Benzodiazepines Scrn Not Detected (Not Detect) Urine Cocaine Screen Not Detected (Not Detect) U Marijuana (THC) Screen Not Detected (Not Detect) Ethyl Alcohol 131 mg/dL Independent Historian Clinical information obtained from an independent historian. History obtained from or confirmed by: EMS External Record Review External record reviewed: Inpatient record Social Determinants Patient?s care significantly limited by Social Determinants of Health including: Other Social Determinant of Health Critical Care Time Critical Care Time Critical Care Time: No Discharge Plan Discharge Clinical Impression: Suicidal ideation, Alcohol intoxication Patient Disposition: Admitted As Inpatient Interventions: Admission Worksheet (ED) Last Done: 10/29/24 12:15 Discharge Date/Time: 10/29/24 12:16
[2024-10-28 19:54] LABS: MANUAL DIFF FLAG NO
[2024-10-28 20:03] LABS: Basophils Percent Auto 0.4 % (0-2); Eosinophils Percent Auto 0.1 % (0-4); Hematocrit 47.2 % (42.0-52.0); Imm Gran Abs Auto 0.03 X10*3/uL (0.00-0.03); Imm Gran Pct Auto 0.3 % (0.0-0.4); Lymphocytes Absolute Auto 1.9 X10*3/uL (1.2-4.9); Lymphocytes Percent Auto 17.4 % (20-40); Mean Corpuscular HGB Conc 33.9 g/dl (31.0-36.0); Mean Corpuscular Hemoglobin 30.2 pg (27.0-33.0); Mean Corpuscular Volume 89.2 fL (80.0-98.0); Mean Platelet Volume 8.9 fL (9.4-12.4); Monocytes Absolute Auto 0.9 X10*3/uL (0.1-1.2); Neutrophils Percent Auto 73.8 % (45-73); Platelet Count 298 X10*3/uL (160-400); Red Blood Count 5.29 X10*6/uL (4.60-5.80); Red Cell Distribution Width 12.9 % (11.0-16.0); White Blood Count 10.8 X10*3/uL (4.8-10.8)
[2024-10-28 20:05] LABS: Amphetamine Screen Urine Not Detected (Not Detect); Barbiturates, Urine Not Detected (Not Detect); Benzodiazepines Screen Urine Not Detected (Not Detect); Buprenorphine Scr Not Detected (Not Detect); Cannabinoid Screen Urine Not Detected (Not Detect); Cocaine Screen Urine Not Detected (Not Detect); Fentanyl, urine Not Detected (Not Detect); Methadone Screen, Urine Not Detected (Not Detect); Opiate Screen Urine Not Detected (Not Detect); Oxycodone Screen Urine Not Detected (Not Detect); Phencyclidine Screen Urine Not Detected (Not Detect)
[2024-10-28 20:07] LABS: Ethanol 131 mg/dL
[2024-10-28 20:11] LABS: Alanine Aminotransferase 20 U/L (0-40); Albumin Level 5.2 g/dL (3.5-5.0); Alkaline Phosphatase 83 U/L (39-117); Anion Gap 16 (12-20); Aspartate Amino Transferase 32 U/L (5-37); Bilirubin Total 0.7 mg/dL (0.0-1.0); Blood Urea Nitrogen 11 mg/dL (9-16); Calcium 9.8 mg/dL (8.4-10.2); Carbon Dioxide 22 mmol/L (22-29); Chloride 107 mmol/L (96-108); Creatinine Clr Calc Pharmacy 112.9; Estimated Glomerular Filt Rate > 60; Glucose Random 77 mg/dL (60-115); Potassium 4.1 mmol/L (3.3-5.1); Sodium 141 mmol/L (135-145); Total Protein 7.9 g/dL (6.5-8.0)
--- NOTE | 2024-10-29 | ECG_ITS ---
Test Reason : R/O PROLONGED QT Blood Pressure : */* mmHG Vent. Rate : 74 BPM Atrial Rate : 74 BPM P-R Int : 148 ms QRS Dur : 104 ms QT Int : 372 ms P-R-T Axes : 82 98 77 degrees QTcB Int : 412 ms Normal sinus rhythm Rightward axis Borderline ECG When compared with ECG of 21-Sep-2024 13:37, No significant change was found Referred By: Yee Noyola Electronically Signed By: NAVDEEP TOBAR MD
--- NOTE | 2024-10-29 06:18 | PC.NURSE ---
Patient slept through the night, no distress observed/reported, asymptomatic of ETOH withdrawal, med rec completed/pending provider's approval, disposition per care team is LOCO follow up, 15 minutes for safety check, no behavior and safety concerns, will continue to monitor
[2024-10-29 06:19] VITALS: BP 118/69; PULSE 83; RESP 16; TEMP 36.8; O2SAT 99
--- NOTE | 2024-10-29 07:43 | PC.NURSE ---
Assumed care of patient at 0645, patient appears to be in no apparent distress this am, respirations even and unlabored. Continue plan of care for CARE team follow up
--- NOTE | 2024-10-29 08:37 | MHC.CARE ---
Pt will be an inpatient bedsearch.
[2024-10-29] MEDS: OXcarbazepine 150 MG TABLET PO ×2 (09:35→21:59)
[2024-10-29] MEDS: Propranolol HCL 10 MG TABLET PO (09:35)
[2024-10-29] MEDS: Cholecalciferol (Vitamin D3) 10 MCG TABLET 20 MCG PO (09:36)
[2024-10-29 09:50] LABS: Appearance Urine Clear; Color Urine Yellow; Glucose Urine UA Negative (Negative); Leukocyte Esterase Urine Negative (Negative); Nitrite Urine Negative (Negative); PH 5.5 (5.0-9.0); Specific Gravity - Urine 1.015 (1.005-1.025); UMIC TRIGGER UA YES; Urine Blood Small (1+) (Negative); Urine Ketones Negative (Negative); Urine Protein Negative (Neg-Trace)
[2024-10-29 09:52] LABS: Bacteria Urine None Seen (None Seen); Hyaline Casts Urine 0-2 /LPF (0-2); Squamous Epithelial Cell Urine 0-2 /HPF (0-2); WBC Urine 0-5 /HPF (0-5)
[2024-10-29 12:28] VITALS: BP 117/78; PULSE 72; RESP 16; TEMP 36.6; O2SAT 100
[2024-10-29 12:29] VITALS: BMI 18.4
--- NOTE | 2024-10-29 15:25 | PHA.MEDREC ---
Pharmacy Consult ? Medication Reconciliation Pharmacy has reviewed the medication reconciliation done by nursing. Med quetiapine 50 mg at bedtime was missing from med list. Nurse Kiara Correa asked patient and he said he was just put on it and has been taking it so med was added to home med list.
--- NOTE | 2024-10-29 16:59 | PC.ADMIT ---
Patient was admitted this afternoon on a CV (later signed a 3 day) from the ED POD for tx of MDD and Generalized Anxiety Disorder. Patient was BIBA after being found in the [place] intoxicated with a bottle of pills and sending texts to his best friend that consisted of the pt threatening to end his own life. Patient is known to the Care team and had a most recent admission to on 09/21/24 for similar presentation. Precipitation includes the patient becoming upset with his friend, [place] (also who he has been living with) when he did not want Indio going out to hang out with another male friend. Patient began packing his things and threatening to leave. Per his friend, pt became erratic and argumentative and sending vulgar messages threatening to kill himself . Upon assessment, patient is pleasant, calm and cooperative, A&Ox4 with linear thought process. Patient states he was brought in because due to increased depression and SI I was saying pretty foul things to my friend but I did not mean any of it . He denies current SI and states he had no plan/intention of ending his life or self harming. Patient reports recently being homeless but is focused on going back to his friends house when he gets discharged I want social work to know I'm not going back to another skilled nursing. The last one they recommended was not at all what they said it would be and I'm not going back . He denies any issues with sleep but is unsure of any recent weight loss, as he feels his appetite fluctuates frequently. Patients Tox screen was negative for all substances and BAL was 131 upon arrival to the ED yesterday. I had a lot of shots that day I came in but I'm sober now. And I don't drink all the time . Patient has been placed on a CIWA Q4 and 15 minute checks for safety.
--- NOTE | 2024-10-29 17:30 | PC.NURSE ---
Patient reports uses BL hearing aids but states he does not have them with him. Per patient's request, patient's friend/roommate Indio was called and asked if he could bring in the hearing aids at some point for Tim. Patients friend said he would try to stop by within the next few days with his hearing aids and some clothes for him.
[2024-10-29 19:55] VITALS: BP 113/70; PULSE 69; TEMP 37.1; O2SAT 96
[2024-10-29] MEDS: QUEtiapine Fumarate 50 MG TABLET PO (21:59)
[2024-10-29] MEDS: Mirtazapine 15 MG TABLET PO (21:59)
[2024-10-30 08:00] VITALS: BP 107/57; PULSE 90; RESP 14; TEMP 36.9; O2SAT 98
[2024-10-30 08:09] VITALS: BP 107/57; PULSE 90
[2024-10-30] MEDS: Cholecalciferol (Vitamin D3) 10 MCG TABLET 20 MCG PO (08:09)
[2024-10-30] MEDS: OXcarbazepine 150 MG TABLET PO ×2 (08:09→20:04)
[2024-10-30] MEDS: Thiamine HCL 100 MG TABLET PO (08:09)
[2024-10-30] MEDS: Propranolol HCL 10 MG TABLET PO (08:09)
[2024-10-30] MEDS: Nicotine Polacrilex 2 MG GUM 4 MG BUCCAL (08:13)
[2024-10-30 08:30] LABS: Estimated Average Glucose 94 mg/dL; Hemoglobin A1C 117.5266 umol/L; Hemoglobin A1c % 4.9 % (<6.0); Total Hemoglobin (HGBA1C) 3900.8296 umol/L
[2024-10-30 08:34] LABS: Alanine Aminotransferase 17 U/L (0-40); Albumin Level 4.1 g/dL (3.5-5.0); Alkaline Phosphatase 83 U/L (39-117); Anion Gap 13 (12-20); Aspartate Amino Transferase 21 U/L (5-37); Bilirubin Total 0.8 mg/dL (0.0-1.0); Blood Urea Nitrogen 12 mg/dL (9-16); Calcium 9.2 mg/dL (8.4-10.2); Carbon Dioxide 27 mmol/L (22-29); Chloride 106 mmol/L (96-108); Cholesterol 145 mg/dL (<200); Creatinine Clr Calc Pharmacy 94.2; Estimated Glomerular Filt Rate > 60; Glucose Random 88 mg/dL (60-115); HDL Cholesterol 65 mg/dL (>40); LDL Cholesterol Calculated 71 mg/dL (<100); Sodium 142 mmol/L (135-145); Total Protein 6.4 g/dL (6.5-8.0); Triglycerides 48 mg/dL (<150)
--- NOTE | 2024-10-30 09:32 | HO.PSYADMNOT ---
HPI Date of Service: 10/30/24 Chief Complaint: SI Sources of Information: patient interviewed, chart reviewed and crisis/core team assessment reviewed HPI Subjective Notes: [place] Warning and Conditional Voluntary Narrative: Patient is a 29-year-old male with history of MDD and cocaine use disorder who was brought in by ambulance to ER due to suicidal ideation secondary to being under the influence of alcohol. Per crisis report, patient was brought in by ambulance to ER after being found in the [place], suicidal and intoxicated. Patient was found with a bottle of pills in had been threatening to end his life via text to his best friend, who he is romantically interested in. Patient was admitted on 09/21/2024 for a similar presentation. Patient reports that he became upset when his best friend stated that he was going to go out and meet up with another man. Patient reports he did not want to attend and also did not want his friend to go. When his friend prepared to leave patient reports he became upset and started packing his things to move out. During admission assessment, patient presents alert and oriented x3. Calm and cooperative. Patient reports feeling okay ; patient stated, my friend called the police on me because I was telling him crazy things. I told him I wanted to take my life. I didn't actually want to do it. I told him that to prevent him from hanging out with the other person . Patient reports he had taken 5-6 shots of alcohol prior to sending the text message. He reports he plans on returning to his friend's house. Patient states he is medication compliant. Utox positive for alcohol. He does not have outpatient psychiatric providers. Denies SI/HI/VH/AH. Past Psychiatric History: History of 3 other inpatient psychiatric hospitalizations. Does not have outpatient psychiatric providers. History of SA via OD on medications. Denies history of SIB Medical Evaluation Reviewed: Yes [facility] Medical History Overdose MDD (major depressive disorder), recurrent episode, moderate Conductive hearing loss Family History: Mother: Depression Social History: Pt graduated high school and went to [employer]. Lives with friend. Single. No kids. Works part-time. Substance History: History of alcohol and cocaine use. He reports smoking marijuana occasionally. Denies any other substance use. Trauma History: Denies Diagnostics Vital Signs (24Hr): Vital Signs - 24 hr 05/29/25 12:28 10/29/24 19:55 10/30/24 08:00 Temperature 98 F 98.7 F 98.4 F Pulse Rate 72 69 90 Respiratory Rate 16 14 Blood Pressure 117/78 113/70 107/57 L Pulse Oximetry 100 96 98 Oxygen Delivery Method Room Air Room Air Room Air 10/30/24 08:09 Temperature Pulse Rate 90 Respiratory Rate Blood Pressure 107/57 L Pulse Oximetry Oxygen Delivery Method BMI result Body Mass Index 18.4 Labs 10/28/24 19:48 10/30/24 07:50 Labs: Laboratory Results - last 48 hr 10/28/24 10/28/24 10/28/24 19:46 19:47 19:48 WBC 10.8 RBC 5.29 Hgb 16.0 Hct 47.2 MCV 89.2 MCH 30.2 MCHC 33.9 RDW 12.9 Plt Count 298 MPV 8.9 L Immature Gran % (Auto) 0.3 Neut % (Auto) 73.8 H Lymph % (Auto) 17.4 L [place] % (Auto) 8.0 Eos % (Auto) 0.1 Baso % (Auto) 0.4 Lymph # (Auto) 1.9 [place] # (Auto) 0.9 Eos # (Auto) 0.0 Baso # (Auto) 0.0 Abs Immat Gran (auto) 0.03 Absolute Neuts (auto) 8.0 Absolute Nucleated RBC 0.000 Nucleated RBC % (auto) 0.0 Sodium 141 Potassium 4.1 Chloride 107 Carbon Dioxide 22 Anion Gap 16 BUN 11 Creatinine 0.91 Estim Creat Clear Calc 112.9 Estimated GFR > 60 Random Glucose 77 Estimat Average Glucose Hemoglobin A1c % Calcium 9.8 Total Bilirubin 0.7 AST 32 ALT 20 Alkaline Phosphatase 83 Total Protein 7.9 Albumin 5.2 H Triglycerides Cholesterol LDL Cholesterol, Calc HDL Cholesterol Urine Color Yellow Urine Appearance Clear Urine pH 5.5 Ur Specific [place] 1.015 Urine Protein Negative Urine Glucose (UA) Negative Urine Ketones Negative Urine Blood Small (1+) H Urine Nitrite Negative Ur Leukocyte Esterase Negative Urine RBC 6-10 H Urine WBC 0-5 Ur Squamous Epith Cells 0-2 Urine Bacteria None Seen Hyaline Casts 0-2 Urine Opiates Screen Not Detected Ur Buprenorphine Scrn Not Detected Ur Oxycodone Screen Not Detected Urine Methadone Screen Not Detected Urine Fentanyl Screen Not Detected Ur Barbiturates Screen Not Detected Ur Phencyclidine Scrn Not Detected Ur Amphetamines Screen Not Detected U Benzodiazepines Scrn Not Detected Urine Cocaine Screen Not Detected U Marijuana (THC) Screen Not Detected Ethyl Alcohol 131 10/30/24 07:50 WBC RBC Hgb Hct MCV MCH MCHC RDW Plt Count MPV Immature Gran % (Auto) Neut % (Auto) Lymph % (Auto) [place] % (Auto) Eos % (Auto) Baso % (Auto) Lymph # (Auto) [place] # (Auto) Eos # (Auto) Baso # (Auto) Abs Immat Gran (auto) Absolute Neuts (auto) Absolute Nucleated RBC Nucleated RBC % (auto) Sodium 142 Potassium 4.0 Chloride 106 Carbon Dioxide 27 Anion Gap 13 BUN 12 Creatinine 0.88 Estim Creat Clear Calc 94.2 Estimated GFR > 60 Random Glucose 88 Estimat Average Glucose 94 Hemoglobin A1c % 4.9 Calcium 9.2 D Total Bilirubin 0.8 AST 21 ALT 17 Alkaline Phosphatase 83 Total Protein 6.4 L Albumin 4.1 Triglycerides 48 Cholesterol 145 LDL Cholesterol, Calc 71 HDL Cholesterol 65 Urine Color Urine Appearance Urine pH Ur Specific [place] Urine Protein Urine Glucose (UA) Urine Ketones Urine Blood Urine Nitrite Ur Leukocyte Esterase Urine RBC Urine WBC Ur Squamous Epith Cells Urine Bacteria Hyaline Casts Urine Opiates Screen Ur Buprenorphine Scrn Ur Oxycodone Screen Urine Methadone Screen Urine Fentanyl Screen Ur Barbiturates Screen Ur Phencyclidine Scrn Ur Amphetamines Screen U Benzodiazepines Scrn Urine Cocaine Screen U Marijuana (THC) Screen Ethyl Alcohol Meds/Allergies Meds Home Medications ?Medication ?Instructions ?Recorded ?Confirmed ?Type cholecalciferol (vitamin D3) 10 20 mcg PO DAILY 10/28/24 10/28/24 History mcg (400 unit) tablet (Vitamin D3) ibuprofen 600 mg tablet 600 mg PO Q8H PRN mild pain 10/28/24 10/28/24 History melatonin 10 mg capsule 10 mg PO BEDTIME PRN insomnia 10/28/24 10/28/24 History mirtazapine 15 mg tablet 15 mg PO BEDTIME 10/28/24 10/28/24 History oxcarbazepine 150 mg tablet 150 mg PO BID 10/28/24 10/28/24 History propranolol 10 mg tablet 10 mg PO DAILY 10/28/24 10/28/24 History quetiapine 50 mg tablet 50 mg PO BEDTIME 10/29/24 10/29/24 History Allergies Allergies Allergy/AdvReac Type Severity Reaction Status Date / Time minocycline [MINOCYCLINE] Allergy Unknown URINATE Verified 10/28/24 19:15 BLOOD Mental Status Exam Mental Status Exam Patient Appearance: Well Grooomed Patient Orientation: Person, Place, Time and Situation Level of Consciousness: Awake and Alert Patient Behavior: Appropriate, Cooperative and Good Eye Contact Mood Description: Calm Affect Description: Calm Ability to Follow Directions: Good Speech Pattern: Clear and Appropriate Memory Description: Intact Hallucinations: None Delusions: Not Present Thought Process: Intact Thought Content: positive for Intact Assessment & Plan Assessment & Plan (1) MDD (major depressive disorder), recurrent episode, moderate: Status: Acute Code(s): F33.1 - Major depressive disorder, recurrent, moderate Plan Patient is a 29-year-old male with history of MDD and cocaine use disorder who was brought in by ambulance to ER due to suicidal ideation secondary to being under the influence of alcohol. Plan: CV 15 minute safety checks Continue home medications [facility] protocol Obtain collateral Encourage groups Referral to outpatient psychiatric providers Discharge planning Patient educated on: diagnosis and medication risk/benefits Reason for continued inpatient stay Substantial Risk for: med/psych decompensation Statement Statement: I have reviewed the history and physical and performed a pertinent examination on my patient. No changes have occurred unless specified. If the History and Physical was not performed prior to admission, the Hospitalist's service will be consulted for completing the admission physical. Time Spent With Patient Time: Total time managing care of this patient today _60___ minutes.
[2024-10-30] MEDS: guaiFENesin 100 MG/5 ML 5 ML LIQUID PO (17:15)
[2024-10-30 20:00] VITALS: BP 144/96; PULSE 81; RESP 16; TEMP 37.4; O2SAT 100
[2024-10-30] MEDS: QUEtiapine Fumarate 50 MG TABLET PO (20:04)
[2024-10-30] MEDS: Mirtazapine 15 MG TABLET PO (20:05)
[2024-10-31 07:50] VITALS: BP 91/54; PULSE 66; RESP 16; TEMP 36.7; O2SAT 98
[2024-10-31] MEDS: OXcarbazepine 150 MG TABLET PO ×2 (08:37→20:53)
[2024-10-31] MEDS: Thiamine HCL 100 MG TABLET PO (08:37)
[2024-10-31] MEDS: Cholecalciferol (Vitamin D3) 10 MCG TABLET 20 MCG PO (08:38)
[2024-10-31 08:44] VITALS: BP 137/76; PULSE 78
[2024-10-31] MEDS: Propranolol HCL 10 MG TABLET PO (08:45)
[2024-10-31] MEDS: guaiFENesin 100 MG/5 ML 5 ML LIQUID PO ×2 (09:52→20:58)
--- NOTE | 2024-10-31 10:34 | P.PNPSI_ITS ---
Subjective Subjective Date of Service: 10/31/24 Reason For Visit: SI Subjective Notes: Conditional Voluntary Interim History: Pt reports sleeping well. He denies SI/HI. No VH/AH. No overt psychosis. He report cough and sore throat, afebrile. No SOB. Otherwise reports looking forward to be discharge soon. Medication Compliance: Yes Review of Systems Review of Systems Yes all other systems are reviewed and are negative Mental Status Exam Mental Status Exam Patient Appearance: Well Grooomed Patient Orientation: Person, Place, Time and Situation Level of Consciousness: Awake and Alert Patient Behavior: Appropriate, Cooperative and Good Eye Contact Mood Description: Calm Affect Description: Calm Ability to Follow Directions: Good Speech Pattern: Clear and Appropriate Memory Description: Intact Hallucinations: None Delusions: Not Present Thought Process: Intact Thought Content: positive for Intact Diagnostics Vital Signs (24Hr): Vital Signs - 24 hr 10/30/24 20:00 10/31/24 07:50 10/31/24 08:44 Temperature 99.3 F 98.0 F Pulse Rate 81 66 78 Respiratory Rate 16 16 Blood Pressure 144/96 H 91/54 L 137/76 Pulse Oximetry 100 98 Oxygen Delivery Method Room Air Room Air BMI result Body Mass Index 18.4 Labs 10/28/24 19:48 10/30/24 07:50 Labs: Laboratory Results - last 48 hr 10/30/24 07:50 Sodium 142 Potassium 4.0 Chloride 106 Carbon Dioxide 27 Anion Gap 13 BUN 12 Creatinine 0.88 Estim Creat Clear Calc 94.2 Estimated GFR > 60 Random Glucose 88 Estimat Average Glucose 94 Hemoglobin A1c % 4.9 Calcium 9.2 D Total Bilirubin 0.8 AST 21 ALT 17 Alkaline Phosphatase 83 Total Protein 6.4 L Albumin 4.1 Triglycerides 48 Cholesterol 145 LDL Cholesterol, Calc 71 HDL Cholesterol 65 Medications Medications Current Medications Acetaminophen (Acetaminophen 325 Mg Tablet) 650 mg PO Q6H PRN PRN Reason: Headache/Pain, Scale 1-10 Al Hydroxide/Mg Hydroxide (Magnesium Hydrox/Alum Hydrox 30 Ml Oral.Susp) 30 ml PO Q6H PRN PRN Reason: Heartburn/Nausea Benzocaine (Throat Lozenge, Medicated Lozenge) 1 lozenge MUCOUS MEM Q2H PRN PRN Reason: Sore Throat Guaifenesin (Guaifenesin 100 Mg/5 Ml 5 Ml Liquid) 5 ml PO Q6H PRN PRN Reason: Cough Last Admin: 10/31/24 09:52 Dose: 5 ml Hydroxyzine HCl (Hydroxyzine Hcl 25 Mg Tablet) 25 mg PO Q6H PRN PRN Reason: mild anxiety Ibuprofen (Ibuprofen 600 Mg Tablet) 600 mg PO Q8H PRN PRN Reason: mild pain Lorazepam (Lorazepam 1 Mg Tablet) 1 mg PO Q2H PRN PRN Reason: CIWA 8-11 Lorazepam (Lorazepam 1 Mg Tablet) 2 mg PO Q2H PRN PRN Reason: CIWA 12-15 Lorazepam (Lorazepam 1 Mg Tablet) 3 mg PO Q2H PRN PRN Reason: CIWA > 15, and call Magnesium Hydroxide (Milk Of Magnesia 30 Ml Oral.Susp) 30 ml PO DAILY PRN PRN Reason: Constipation Melatonin (Melatonin 3 Mg Tablet) 9 mg PO BEDTIME PRN PRN Reason: insomnia Mirtazapine (Mirtazapine 15 Mg Tablet) 15 mg PO BEDTIME [facility] Last Admin: 10/30/24 20:05 Dose: 15 mg Nicotine Polacrilex (Nicotine Polacrilex 2 Mg Gum) 4 mg BUCCAL Q2H PRN PRN Reason: Nicotine Cravings Last Admin: 10/30/24 08:13 Dose: 4 mg Oxcarbazepine (Oxcarbazepine 150 Mg Tablet) 150 mg PO BID [facility] Last Admin: 10/31/24 08:37 Dose: 150 mg Propranolol HCl (Propranolol Hcl 10 Mg Tablet) 10 mg PO DAILY [facility]; Protocol Last Admin: 10/31/24 08:45 Dose: 10 mg Quetiapine Fumarate (Quetiapine Fumarate 50 Mg Tablet) 50 mg PO BEDTIME [facility] Last Admin: 10/30/24 20:04 Dose: 50 mg Thiamine HCl (Thiamine Hcl 100 Mg Tablet) 100 mg PO DAILY [facility] Last Admin: 10/31/24 08:37 Dose: 100 mg Trazodone HCl (Trazodone Hcl 50 Mg Tablet) 50 mg PO BEDTIME MRX1 PRN PRN Reason: Insomnia Vitamin D (Cholecalciferol (Vitamin D3) 10 Mcg Tablet) 20 mcg PO DAILY [facility] Last Admin: 10/31/24 08:38 Dose: 20 mcg Allergies Allergies Allergy/AdvReac Type Severity Reaction Status Date / Time minocycline [MINOCYCLINE] Allergy Unknown URINATE Verified 10/28/24 19:15 BLOOD Assessment & Plan Assessment & Plan (1) MDD (major depressive disorder), recurrent episode, moderate: Status: Acute Code(s): F33.1 - Major depressive disorder, recurrent, moderate Plan Patient is a 29-year-old male with history of MDD and cocaine use disorder who was brought in by ambulance to ER due to suicidal ideation secondary to being under the influence of alcohol. Plan: CV 15 minute safety checks Continue home medications CIWA protocol Obtain collateral Encourage groups Referral to outpatient psychiatric providers Discharge planning 10/31 continue tx. Not scoring on CIWA Reason for continued inpatient stay Substantial Risk for: inability to function Time Spent With Patient Time: Total time managing care of this patient today ____ minutes.
[2024-10-31] MEDS: Nicotine Polacrilex 2 MG GUM 4 MG BUCCAL (19:58)
[2024-10-31 20:00] VITALS: BP 139/76; PULSE 92; RESP 16; TEMP 36.9; O2SAT 100
[2024-10-31] MEDS: Mirtazapine 15 MG TABLET PO (20:53)
[2024-10-31] MEDS: QUEtiapine Fumarate 50 MG TABLET PO (20:53)
[2024-10-31] MEDS: Throat Lozenge, Medicated LOZENGE 1 LOZENGE MUCOUS MEM (20:58)
[2024-11-01 08:00] VITALS: BP 109/58; PULSE 69; TEMP 37.3; O2SAT 98
[2024-11-01] MEDS: guaiFENesin 100 MG/5 ML 5 ML LIQUID PO ×2 (08:37→21:51)
[2024-11-01] MEDS: Propranolol HCL 10 MG TABLET PO (08:37)
[2024-11-01] MEDS: Cholecalciferol (Vitamin D3) 10 MCG TABLET 20 MCG PO (08:38)
[2024-11-01] MEDS: Thiamine HCL 100 MG TABLET PO (08:38)
[2024-11-01] MEDS: OXcarbazepine 150 MG TABLET PO ×2 (08:38→20:48)
[2024-11-01] MEDS: Nicotine Polacrilex 2 MG GUM 4 MG BUCCAL (15:27)
[2024-11-01 19:45] VITALS: BP 112/76; PULSE 97; RESP 18; TEMP 37.1; O2SAT 99
[2024-11-01] MEDS: QUEtiapine Fumarate 50 MG TABLET PO (20:48)
[2024-11-01] MEDS: Mirtazapine 15 MG TABLET PO (20:48)
[2024-11-01] MEDS: hydrOXYzine HCL 25 MG TABLET PO (20:52)
--- NOTE | 2024-11-01 21:50 | P.PNPSI_ITS ---
Subjective Subjective Date of Service: 11/01/24 Reason For Visit: SI Interim History: Pt reports sleeping well. He denies SI/HI. No VH/AH. No overt psychosis. He report cough and sore throat, afebrile. No SOB. Otherwise reports looking forward to be discharge soon. Review of Systems Review of Systems Yes all other systems are reviewed and are negative Mental Status Exam Mental Status Exam Patient Appearance: Well Grooomed Patient Orientation: Person, Place, Time and Situation Level of Consciousness: Awake and Alert Patient Behavior: Appropriate, Cooperative and Good Eye Contact Mood Description: Calm Affect Description: Calm Ability to Follow Directions: Good Speech Pattern: Clear and Appropriate Memory Description: Intact Diagnostics Vital Signs (24Hr): Vital Signs - 24 hr 11/01/24 08:00 11/01/24 19:45 Temperature 99.1 F 98.8 F Pulse Rate 69 97 Respiratory Rate 18 Blood Pressure 109/58 L 112/76 Pulse Oximetry 98 99 Oxygen Delivery Method Room Air Room Air BMI result Body Mass Index 18.4 Labs 10/28/24 19:48 10/30/24 07:50 Medications Medications Current Medications Acetaminophen (Acetaminophen 325 Mg Tablet) 650 mg PO Q6H PRN PRN Reason: Headache/Pain, Scale 1-10 Al Hydroxide/Mg Hydroxide (Magnesium Hydrox/Alum Hydrox 30 Ml Oral.Susp) 30 ml PO Q6H PRN PRN Reason: Heartburn/Nausea Benzocaine (Throat Lozenge, Medicated Lozenge) 1 lozenge MUCOUS MEM Q2H PRN PRN Reason: Sore Throat Last Admin: 10/31/24 20:58 Dose: 1 lozenge Guaifenesin (Guaifenesin 100 Mg/5 Ml 5 Ml Liquid) 5 ml PO Q6H PRN PRN Reason: Cough Last Admin: 11/01/24 08:37 Dose: 5 ml Hydroxyzine HCl (Hydroxyzine Hcl 25 Mg Tablet) 25 mg PO Q6H PRN PRN Reason: mild anxiety Last Admin: 11/01/24 20:52 Dose: 25 mg Ibuprofen (Ibuprofen 600 Mg Tablet) 600 mg PO Q8H PRN PRN Reason: mild pain Magnesium Hydroxide (Milk Of Magnesia 30 Ml Oral.Susp) 30 ml PO DAILY PRN PRN Reason: Constipation Melatonin (Melatonin 3 Mg Tablet) 9 mg PO BEDTIME PRN PRN Reason: insomnia Mirtazapine (Mirtazapine 15 Mg Tablet) 15 mg PO BEDTIME [facility] Last Admin: 11/01/24 20:48 Dose: 15 mg Nicotine Polacrilex (Nicotine Polacrilex 2 Mg Gum) 4 mg BUCCAL Q2H PRN PRN Reason: Nicotine Cravings Last Admin: 11/01/24 15:27 Dose: 4 mg Oxcarbazepine (Oxcarbazepine 150 Mg Tablet) 150 mg PO BID [facility] Last Admin: 11/01/24 20:48 Dose: 150 mg Propranolol HCl (Propranolol Hcl 10 Mg Tablet) 10 mg PO DAILY [facility]; Protocol Last Admin: 11/01/24 08:37 Dose: 10 mg Quetiapine Fumarate (Quetiapine Fumarate 50 Mg Tablet) 50 mg PO BEDTIME [facility] Last Admin: 11/01/24 20:48 Dose: 50 mg Thiamine HCl (Thiamine Hcl 100 Mg Tablet) 100 mg PO DAILY [facility] Last Admin: 11/01/24 08:38 Dose: 100 mg Trazodone HCl (Trazodone Hcl 50 Mg Tablet) 50 mg PO BEDTIME MRX1 PRN PRN Reason: Insomnia Vitamin D (Cholecalciferol (Vitamin D3) 10 Mcg Tablet) 20 mcg PO DAILY [facility] Last Admin: 11/01/24 08:38 Dose: 20 mcg Allergies Allergies Allergy/AdvReac Type Severity Reaction Status Date / Time minocycline [MINOCYCLINE] Allergy Unknown URINATE Verified 10/28/24 19:15 BLOOD Assessment & Plan Assessment & Plan (1) MDD (major depressive disorder), recurrent episode, moderate: Status: Acute Code(s): F33.1 - Major depressive disorder, recurrent, moderate Plan Patient is a 29-year-old male with history of MDD and cocaine use disorder who was brought in by ambulance to ER due to suicidal ideation secondary to being under the influence of alcohol. Plan: CV 15 minute safety checks Continue home medications CIWA protocol Obtain collateral Encourage groups Referral to outpatient psychiatric providers Discharge planning 10/31 continue tx. 11/01 continue tx. may add flonase for congestion. Reason for continued inpatient stay Substantial Risk for: harm to self Time Spent With Patient Time: Total time managing care of this patient today ____ minutes.
[2024-11-02 08:22] VITALS: BP 160/87; PULSE 88; RESP 14; TEMP 37.1; O2SAT 98
[2024-11-02] MEDS: Thiamine HCL 100 MG TABLET PO (08:28)
[2024-11-02] MEDS: Propranolol HCL 10 MG TABLET PO (08:28)
[2024-11-02] MEDS: OXcarbazepine 150 MG TABLET PO ×2 (08:28→21:46)
[2024-11-02] MEDS: Cholecalciferol (Vitamin D3) 10 MCG TABLET 20 MCG PO (08:28)
[2024-11-02] MEDS: guaiFENesin 100 MG/5 ML 5 ML LIQUID PO ×2 (08:29→21:46)
--- NOTE | 2024-11-02 09:41 | P.PNPSI_ITS ---
Subjective Subjective Date of Service: 11/02/24 Reason For Visit: SI Subjective Notes: 3 Day Interim History: Active on unit, social with peers. 3 day up on 11/03/24. Patient reports feeling good and ready to go ; pt reports having a good visit with his friend yesterday. Pt reports he plans on staying in a motel after discharge. denies SI/HI/VH/AH. per nursing, slept 8 hours. Medication Compliance: Yes Side effects from medications: No Mental Status Exam Mental Status Exam Narrative: Pt is alert and oriented; behavior is cooperative and calm; dressed in casual attire; mood is described as good ; eye contact appropriate; Speech is normal rate, volume and not pressured; thought process is organized and goal directed; Thought content is on discharge; denies SI/HI/VH/AH. Diagnostics Vital Signs (24Hr): Vital Signs - 24 hr 11/01/24 19:45 11/02/24 08:22 Temperature 98.8 F 98.8 F Pulse Rate 97 88 Respiratory Rate 18 14 Blood Pressure 112/76 160/87 H Pulse Oximetry 99 98 Oxygen Delivery Method Room Air Room Air BMI result Body Mass Index 18.4 Labs 10/28/24 19:48 10/30/24 07:50 Medications Medications Current Medications Acetaminophen (Acetaminophen 325 Mg Tablet) 650 mg PO Q6H PRN PRN Reason: Headache/Pain, Scale 1-10 Al Hydroxide/Mg Hydroxide (Magnesium Hydrox/Alum Hydrox 30 Ml Oral.Susp) 30 ml PO Q6H PRN PRN Reason: Heartburn/Nausea Benzocaine (Throat Lozenge, Medicated Lozenge) 1 lozenge MUCOUS MEM Q2H PRN PRN Reason: Sore Throat Last Admin: 10/31/24 20:58 Dose: 1 lozenge Guaifenesin (Guaifenesin 100 Mg/5 Ml 5 Ml Liquid) 5 ml PO Q6H PRN PRN Reason: Cough Last Admin: 11/02/24 08:29 Dose: 5 ml Hydroxyzine HCl (Hydroxyzine Hcl 25 Mg Tablet) 25 mg PO Q6H PRN PRN Reason: mild anxiety Last Admin: 11/01/24 20:52 Dose: 25 mg Ibuprofen (Ibuprofen 600 Mg Tablet) 600 mg PO Q8H PRN PRN Reason: mild pain Magnesium Hydroxide (Milk Of Magnesia 30 Ml Oral.Susp) 30 ml PO DAILY PRN PRN Reason: Constipation Melatonin (Melatonin 3 Mg Tablet) 9 mg PO BEDTIME PRN PRN Reason: insomnia Mirtazapine (Mirtazapine 15 Mg Tablet) 15 mg PO BEDTIME [facility] Last Admin: 11/01/24 20:48 Dose: 15 mg Nicotine Polacrilex (Nicotine Polacrilex 2 Mg Gum) 4 mg BUCCAL Q2H PRN PRN Reason: Nicotine Cravings Last Admin: 11/01/24 15:27 Dose: 4 mg Oxcarbazepine (Oxcarbazepine 150 Mg Tablet) 150 mg PO BID [facility] Last Admin: 11/02/24 08:28 Dose: 150 mg Propranolol HCl (Propranolol Hcl 10 Mg Tablet) 10 mg PO DAILY [facility]; Protocol Last Admin: 11/02/24 08:28 Dose: 10 mg Quetiapine Fumarate (Quetiapine Fumarate 50 Mg Tablet) 50 mg PO BEDTIME [facility] Last Admin: 11/01/24 20:48 Dose: 50 mg Thiamine HCl (Thiamine Hcl 100 Mg Tablet) 100 mg PO DAILY [facility] Last Admin: 11/02/24 08:28 Dose: 100 mg Trazodone HCl (Trazodone Hcl 50 Mg Tablet) 50 mg PO BEDTIME MRX1 PRN PRN Reason: Insomnia Vitamin D (Cholecalciferol (Vitamin D3) 10 Mcg Tablet) 20 mcg PO DAILY [facility] Last Admin: 11/02/24 08:28 Dose: 20 mcg Allergies Allergies Allergy/AdvReac Type Severity Reaction Status Date / Time minocycline [MINOCYCLINE] Allergy Unknown URINATE Verified 10/28/24 19:15 BLOOD Assessment & Plan Assessment & Plan (1) MDD (major depressive disorder), recurrent episode, moderate: Status: Acute Code(s): F33.1 - Major depressive disorder, recurrent, moderate Plan Patient is a 29-year-old male with history of MDD and cocaine use disorder who was brought in by ambulance to ER due to suicidal ideation secondary to being under the influence of alcohol. Plan: CV 15 minute safety checks Continue home medications [facility] protocol Obtain collateral Encourage groups Referral to outpatient psychiatric providers Discharge planning 10/31 continue tx. Not scoring on CIWA 11/02: Active on unit, social with peers. 3 day up on 11/03/24. Patient reports feeling good and ready to go ; pt reports having a good visit with his friend yesterday. Pt reports he plans on staying in a motel after discharge. denies SI/HI/VH/AH. per nursing, slept 8 hours. Patient educated on: diagnosis and medication risk/benefits Reason for continued inpatient stay Substantial Risk for: stable for discharge Time Spent With Patient Time: Total time managing care of this patient today _20___ minutes.
[2024-11-02] MEDS: Nicotine Polacrilex 2 MG GUM 4 MG BUCCAL (14:23)
[2024-11-02 19:45] VITALS: BP 128/83; PULSE 82; RESP 16; TEMP 36.9; O2SAT 99
[2024-11-02] MEDS: Mirtazapine 15 MG TABLET PO (21:46)
[2024-11-02] MEDS: QUEtiapine Fumarate 50 MG TABLET PO (21:46)
[2024-11-02] MEDS: hydrOXYzine HCL 25 MG TABLET PO (21:46)
[2024-11-03 08:00] VITALS: BP 114/85; PULSE 84; RESP 16; TEMP 36.6; O2SAT 99
[2024-11-03] MEDS: OXcarbazepine 150 MG TABLET PO (08:40)
[2024-11-03] MEDS: Propranolol HCL 10 MG TABLET PO (08:40)
[2024-11-03] MEDS: Cholecalciferol (Vitamin D3) 10 MCG TABLET 20 MCG PO (08:40)
[2024-11-03] MEDS: Thiamine HCL 100 MG TABLET PO (08:40)
--- NOTE | 2024-11-03 08:59 | PM.PSYDC ---
DS: Providers Provider Date of Service: 11/03/24 Date of admission: 10/29/24 11:26 Date of discharge: 11/03/24 Primary care physician: Latoya Torres NP Admitting clinician: Krupa Trujillo Attending physician on admission: Willie Hinton Attending physician on discharge: Willie Hinton Discharging clinician: Krupa Trujillo DS: Diagnosis Discharge Diagnosis (1) MDD (major depressive disorder), recurrent episode, moderate: Status: Acute DS: Medications Discharge Medications Home Medications: Home Medications ?Medication ?Instructions ?Recorded ?Confirmed cholecalciferol (vitamin D3) 10 20 mcg PO DAILY 10/28/24 10/28/24 mcg (400 unit) tablet (Vitamin D3) melatonin 10 mg capsule 10 mg PO BEDTIME PRN insomnia 10/28/24 10/28/24 Previous Rx's ?Medication ?Instructions ?Recorded mirtazapine 15 mg tablet 15 mg PO BEDTIME 7 days #7 tabs 11/02/24 oxcarbazepine 150 mg tablet 150 mg PO BID 7 days #14 tabs 11/02/24 propranolol 10 mg tablet 10 mg PO DAILY 7 days #7 tabs 11/02/24 quetiapine 50 mg tablet 50 mg PO BEDTIME 7 days #7 tabs 11/02/24 Mental Status Exam Mental Status Exam Narrative: Pt is alert and oriented; behavior is cooperative and calm; dressed in casual attire; mood is described as good ; eye contact appropriate; Speech is normal rate, volume and not pressured; thought process is organized; Thought content is on discharge; denies SI/HI/VH/AH. Data Data Completed and Pending Completed studies during hospitalization [Text1]: 10/28/24 10/28/24 10/28/24 19:46 19:47 19:48 WBC 10.8 RBC 5.29 Hgb 16.0 Hct 47.2 MCV 89.2 MCH 30.2 MCHC 33.9 RDW 12.9 Plt Count 298 MPV 8.9 L Immature Gran % (Auto) 0.3 Neut % (Auto) 73.8 H Lymph % (Auto) 17.4 L [place] % (Auto) 8.0 Eos % (Auto) 0.1 Baso % (Auto) 0.4 Lymph # (Auto) 1.9 [place] # (Auto) 0.9 Eos # (Auto) 0.0 Baso # (Auto) 0.0 Abs Immat Gran (auto) 0.03 Absolute Neuts (auto) 8.0 Absolute Nucleated RBC 0.000 Nucleated RBC % (auto) 0.0 Sodium 141 Potassium 4.1 Chloride 107 Carbon Dioxide 22 Anion Gap 16 BUN 11 Creatinine 0.91 Estim Creat Clear Calc 112.9 Estimated GFR > 60 Random Glucose 77 Estimat Average Glucose Hemoglobin A1c % Calcium 9.8 Total Bilirubin 0.7 AST 32 ALT 20 Alkaline Phosphatase 83 Total Protein 7.9 Albumin 5.2 H Triglycerides Cholesterol LDL Cholesterol, Calc HDL Cholesterol Urine Color Yellow Urine Appearance Clear Urine pH 5.5 Ur Specific [place] 1.015 Urine Protein Negative Urine Glucose (UA) Negative Urine Ketones Negative Urine Blood Small (1+) H Urine Nitrite Negative Ur Leukocyte Esterase Negative Urine RBC 6-10 H Urine WBC 0-5 Ur Squamous Epith Cells 0-2 Urine Bacteria None Seen Hyaline Casts 0-2 Urine Opiates Screen Not Detected Ur Buprenorphine Scrn Not Detected Ur Oxycodone Screen Not Detected Urine Methadone Screen Not Detected Urine Fentanyl Screen Not Detected Ur Barbiturates Screen Not Detected Ur Phencyclidine Scrn Not Detected Ur Amphetamines Screen Not Detected U Benzodiazepines Scrn Not Detected Urine Cocaine Screen Not Detected U Marijuana (THC) Screen Not Detected Ethyl Alcohol 131 10/30/24 07:50 WBC RBC Hgb Hct MCV MCH MCHC RDW Plt Count MPV Immature Gran % (Auto) Neut % (Auto) Lymph % (Auto) [place] % (Auto) Eos % (Auto) Baso % (Auto) Lymph # (Auto) [place] # (Auto) Eos # (Auto) Baso # (Auto) Abs Immat Gran (auto) Absolute Neuts (auto) Absolute Nucleated RBC Nucleated RBC % (auto) Sodium 142 Potassium 4.0 Chloride 106 Carbon Dioxide 27 Anion Gap 13 BUN 12 Creatinine 0.88 Estim Creat Clear Calc 94.2 Estimated GFR > 60 Random Glucose 88 Estimat Average Glucose 94 Hemoglobin A1c % 4.9 Calcium 9.2 D Total Bilirubin 0.8 AST 21 ALT 17 Alkaline Phosphatase 83 Total Protein 6.4 L Albumin 4.1 Triglycerides 48 Cholesterol 145 LDL Cholesterol, Calc 71 HDL Cholesterol 65 Urine Color Urine Appearance Urine pH Ur Specific [place] Urine Protein Urine Glucose (UA) Urine Ketones Urine Blood Urine Nitrite Ur Leukocyte Esterase Urine RBC Urine WBC Ur Squamous Epith Cells Urine Bacteria Hyaline Casts Urine Opiates Screen Ur Buprenorphine Scrn Ur Oxycodone Screen Urine Methadone Screen Urine Fentanyl Screen Ur Barbiturates Screen Ur Phencyclidine Scrn Ur Amphetamines Screen U Benzodiazepines Scrn Urine Cocaine Screen U Marijuana (THC) Screen Ethyl Alcohol DS: Summary Hospital Course Hospital Course: Patient is a 29-year-old male with history of MDD and cocaine use disorder who was brought in by ambulance to ER due to suicidal ideation secondary to being under the influence of alcohol. Per crisis report, patient was brought in by ambulance to ER after being found in the [place], suicidal and intoxicated. Patient was found with a bottle of pills in had been threatening to end his life via text to his best friend, who he is romantically interested in. Patient was admitted on 09/21/2024 for a similar presentation. Patient reports that he became upset when his best friend stated that he was going to go out and meet up with another man. Patient reports he did not want to attend and also did not want his friend to go. When his friend prepared to leave patient reports he became upset and started packing his things to move out. During admission assessment, patient presents alert and oriented x3. Calm and cooperative. Patient reports feeling okay ; patient stated, my friend called the police on me because I was telling him crazy things. I told him I wanted to take my life. I didn't actually want to do it. I told him that to prevent him from hanging out with the other person . Patient reports he had taken 5-6 shots of alcohol prior to sending the text message. He reports he plans on returning to his friend's house. Patient states he is medication compliant. Utox positive for alcohol. He does not have outpatient psychiatric providers. Denies SI/HI/VH/AH. Plan: CV 15 minute safety checks Continue home medications CIWA protocol Obtain collateral Encourage groups Referral to outpatient psychiatric providers Discharge planning continue tx. Not scoring on CIWA Active on unit, social with peers. 3 day up on 11/03/24. Patient reports feeling good and ready to go ; pt reports having a good visit with his friend yesterday. Pt reports he plans on staying in a motel after discharge. denies SI/HI/VH/AH. per nursing, slept 8 hours. Patient continues to report feeling good ; denies SI/HI/VH/AH. Pt reports he plans on returning to his friends house rather than staying in a motel. He plans on following up with his outpatient providers. Status at Discharge Cognitive/behavioral status at discharge: Patient has insight and demonstrates good judgment in terms of wanting to pursue treatment. Patient has a safety plan that includes presenting to the closest ER or calling 911 if feeling unsafe. Functional status at discharge: independent ambulation Overall status at discharge: patient is back to baseline Time Spent with Patient Time attestation: Total time managing care of this patient today _20___ minutes. Time spent: Less than 30 minutes Discharge Plan Discharge Anticipated Discharge Date/Time: 11/03/24 11:00 Patient Disposition: Home, Self-Care Discharge Diagnosis: MDD Referrals: [facility] [Other] - 1 Week (Please follow up with outpatient providers. [facility] should be contacting you with another appointment. Walk in hours Saturday-Saturday 10am-12pm) Latoya Torres [employer] [Primary Care Provider] - 11/06/24 1:30 pm (11-02-24 Your follow up appt with Latoya Torres [employer]INE [employer] has been scheduled for 11-06-24 @ 1:30pm) Discharge Medications: Continued cholecalciferol (vitamin D3) [Vitamin D3] 10 mcg (400 unit) tablet 20 mcg PO DAILY melatonin 10 mg capsule 10 mg PO BEDTIME PRN (Reason: insomnia) oxcarbazepine 150 mg tablet 150 mg PO BID 7 Days Qty: 14 3RF propranolol 10 mg tablet 10 mg PO DAILY 7 Days Qty: 7 3RF mirtazapine 15 mg tablet 15 mg PO BEDTIME 7 Days Qty: 7 3RF quetiapine 50 mg tablet 50 mg PO BEDTIME 7 Days Qty: 7 3RF Discontinued ibuprofen 600 mg tablet 600 mg PO Q8H PRN (Reason: mild pain) Discharge Orders: Discharge Order (Routine); Ordered 11/03/24 Ordered By: Krupa Trujillo Diet: Regular diet Activity on Discharge: As tolerated Stand Alone Forms: Patient Portal Discharge page, Community Support Print Language: Congolese Care Plan Goals: Maintain mood and safe behaviors Take medications as prescribed Continue to pursue sobriety Practice coping skills Continue with outpatient providers and reach out to them as needed Health Concerns: Mood stability and behaviors Sobriety Plan of Treatment: Follow up with your PCP, psychiatric provider and other outpatient providers regarding above concerns Take medications as prescribed Assessment: Patient has insight and demonstrates good judgment in terms of wanting to pursue treatment. Patient has a safety plan that includes presenting to the closest ER or calling 911 if feeling unsafe. Discharge Date/Time: 11/03/24 10:17
== END 2024-11-03 10:17 | disposition home or self-care (01) | DRG 751 ==
LOC: HO.ED 10-29 11:24 → HO.PADLT16 10-29 11:26
PROVIDERS: Physician Assistant Medical; Admitting Provider Registered Nurse; Emergency Provider Emergency Medicine; Responsible Provider Registered Nurse; Visit Provider Psychiatry & Neurology Psychiatry
DX: F33.1 Major depressive disorder, recurrent, moderate (principal); R45.851 Suicidal ideations; F10.920 Alcohol use, unspecified with intoxication, uncomplicated; F14.90 Cocaine use, unspecified, uncomplicated; Y90.6 Blood alcohol level of 120-199 mg/100 ml; Z79.899 Other long term (current) drug therapy
CPT/HCPCS: 36415; 80053; 80061; 80307; 81001; 83036; 85025; 93005; 99285; S9485

== ENCOUNTER → 2024-10-29 09:56 | Outpatient (BNV) | payer MEDICAID, SELFPAY | PROVIDERS: Admitting Provider Registered Nurse; Emergency Provider Emergency Medicine; Visit Provider Internal Medicine Cardiovascular Disease | DX: Z13.6 Encounter for screening for cardiovascular disorders (principal) | CPT/HCPCS: 93010 ==

== ENCOUNTER → 2024-10-29 11:26 | Outpatient (BNV) | payer OTHER, SELFPAY | PROVIDERS: Admitting Provider Registered Nurse; Emergency Provider Emergency Medicine; Responsible Provider Registered Nurse; Visit Provider Social Worker | DX: F33.1 Major depressive disorder, recurrent, moderate (principal) | CPT/HCPCS: 99231; 99233 ==